=== PATIENT | female | born 1940 | race Caucasian/White ===

== ENCOUNTER 2017-01-07 15:10 | Inpatient (IN) | payer MEDICARE, MEDICAID ==
[~2017-01-07] VITALS: Ht 165.1 cm; Wt 79.4 kg
[~2017-01-07 15:10] MED LIST: ACET-868 PO; ASPI81TA2 PO; ATOR10TA PO; BLOO-697 IN; BUDE10.22 IH; CHOL100044 PO; CYAN500T4 PO; DEXT38GE12 PO; GLUC1KIT2 IM; INSU100I19 SQ; INSU100V3 SQ; IPRA3AMP IH; LORA0.5T PO; MAG30ORA PO; METO25TA6 PO; NIAC10002 PO; RISP0.253 PO; VALP250C PO
[2017-01-07 16:19] LABS: BASOPHILS % (AUTO) 0.5 % (0.0-2.0); EOSINOPHILS % (AUTO) 0.7 % (0.0-6.0); HEMATOCRIT 32 % (33-45); LYMPHOCYTES # (AUTO) 0.9 /CMM (0.8-4.8); LYMPHOCYTES % (AUTO) 14.5 % (20.0-44.0); MEAN CORPUSCULAR HEMOGLOBIN 33 PG (26.0-33.0); MEAN CORPUSCULAR HGB CONC 35 g/dl (31.0-36.0); MEAN CORPUSCULAR VOLUME 97 fL (82-100); MONOCYTES # (AUTO) 0.6 /CMM (0.1-1.30); MONOCYTES % (AUTO) 8.8 % (2.0-12.0); NEUTROPHILS # (AUTO) 4.9 /CMM (1.8-8.9); NEUTROPHILS % (AUTO) 75.5 % (43.0-81.0); PLATELET COUNT (AUTO) 224 /CMM (150-450); RDW COEFFICIENT OF VARIATION 12.8 (11.5-15.0); RED BLOOD CELL COUNT(AUTO) 3.28 MIL/uL (4.0-5.2); WHITE BLOOD COUNT (AUTO) 6.4 K/uL (4.3-11.0)
[2017-01-07] MEDS ORDERED: AMLO5TAB2 PO (16:24)
[2017-01-07] MEDS ORDERED: RISP0.5T20 PO (16:24)
[2017-01-07] MEDS ORDERED: CITA20TA11 PO (16:24)
[2017-01-07] MEDS ORDERED: PIOG30TA2 PO (16:24)
[2017-01-07] MEDS ORDERED: DOCU250C75 PO (16:24)
[2017-01-07] MEDS ORDERED: LOSA50TA21 PO (16:24)
[2017-01-07] MEDS ORDERED: PANT40TA4 PO (16:24)
[2017-01-07] MEDS ORDERED: SITA100T PO (16:24)
[2017-01-07] MEDS ORDERED: MULT-213 PO (16:24)
[2017-01-07] MEDS ORDERED: ASPI-991 PO (16:24)
[2017-01-07 16:28] LABS: CALCIUM, SERUM 9.4 mg/dL (8.5-10.1); CARBON DIOXIDE 29 mmol/L (21-32); CHLORIDE 104 mmol/L (98-107); CREATININE 0.7 mg/dL (0.6-1.3); GLUCOSE 228 mg/dL (74-106); POTASSIUM 4.5 mmol/L (3.5-5.1); SODIUM SERUM 138 mmol/L (136-145); UREA NITROGEN, BLOOD 19 mg/dL (7-18)
[2017-01-07 16:34] LABS: ALANINE AMINOTRANSFERASE 23 U/L (12-78); ALBUMIN 3.4 g/dL (3.4-5.0); ALCOHOL, BLOOD < 3 mg/dL (0-0); ALKALINE PHOSPHATASE 95 U/L (46-116); ASPARTATE AMINOTRANSFERASE 18 U/L (15-37); BILIRUBIN,DIRECT 0.2 mg/dL (0.0-0.2); BILIRUBIN,TOTAL 0.9 mg/dL (0.2-1.0); TOTAL PROTEIN, SERUM 6.7 g/dL (6.4-8.2)
[2017-01-07 16:41] LABS: APPEARANCE,URINE Clear (CLEAR); BILIRUBIN,URINE Negative (NEGATIVE); BLOOD, URINE Negative Ery/uL (NEGATIVE); COLOR,URINE Yellow (YELLOW); KETONES,URINE Negative (NEGATIVE); LEUKOCYTE ESTERASE ,URINE Negative (NEGATIVE); NITRITE, URINE Negative (NEGATIVE); PH,URINE 5.5 (5.0-8.0); PROTEIN,URINE Negative (NEGATIVE); UGLUCOSE 500 MG/DL mg/dL (NEGATIVE); UROBILINOGEN,URINE 0.2 EU/dL (0.2)
[2017-01-07] MEDS ORDERED: IV D5/0.45 NACL 1,000 ML IV PRN (18:41)
[2017-01-07] MEDS ORDERED: HALOPERIDOL LACTATE INJ 5 MG/ML VIAL IM ONE (19:00)
[2017-01-07] MEDS ORDERED: ZOLPIDEM TARTRATE 5 MG TABLET PO PRN (19:00)
[2017-01-07] MEDS ORDERED: ONDANSETRON HCL/PF 4 MG/2 ML VIAL IVP PRN (19:00)
[2017-01-07] MEDS ORDERED: MAG HYDROX/AL HYDROX/SIMETH 30 ML UDC PO PRN (19:00)
[2017-01-07] MEDS ORDERED: MAGNESIUM HYDROXIDE 30 ML UDC PO PRN (19:00)
[2017-01-07] MEDS ORDERED: *INSULIN REGULAR(HUMULIN R)HUM 100 UNIT/ML VIAL SQ PRN (19:00)
[2017-01-07] MEDS ORDERED: DEXTROSE 50%-WATER 50 ML DISP.SYRIN IV PRN (19:00)
[2017-01-07] MEDS ORDERED: ACETAMINOPHEN 325 MG TABLET PO PRN (19:00)
[2017-01-07] MEDS ORDERED: Z GUARD REMEDY 2 OZ OINT TP PRN (19:00)
[2017-01-07] MEDS ORDERED: HYDROCODONE/APAP 5/325MG 1 EACH TABLET PO PRN (19:00)
[2017-01-07 19:25] VITALS: BP 143/63
[2017-01-07] MEDS: BLOOD SUGAR DIAGNOSTIC 1 EACH STRIP VI SCH (21:58)
[2017-01-07] MEDS ORDERED: ATORVASTATIN 10 MG TABLET PO SCH (22:00)
[2017-01-08 06:28] LABS: BASOPHILS % (AUTO) 0.4 % (0.0-2.0); EOSINOPHILS # (AUTO) 0.1 /CMM (0.0-0.7); EOSINOPHILS % (AUTO) 1.3 % (0.0-6.0); HEMATOCRIT 33 % (33-45); HEMOGLOBIN 11.4 g/dL (11.5-14.8); LYMPHOCYTES # (AUTO) 1.4 /CMM (0.8-4.8); LYMPHOCYTES % (AUTO) 19.2 % (20.0-44.0); MEAN CORPUSCULAR HEMOGLOBIN 33 PG (26.0-33.0); MEAN CORPUSCULAR HGB CONC 34 g/dl (31.0-36.0); MEAN CORPUSCULAR VOLUME 97 fL (82-100); MONOCYTES # (AUTO) 0.7 /CMM (0.1-1.30); MONOCYTES % (AUTO) 9.3 % (2.0-12.0); NEUTROPHILS % (AUTO) 69.8 % (43.0-81.0); PLATELET COUNT (AUTO) 231 /CMM (150-450); RDW COEFFICIENT OF VARIATION 12.7 (11.5-15.0); RED BLOOD CELL COUNT(AUTO) 3.43 MIL/uL (4.0-5.2); WHITE BLOOD COUNT (AUTO) 7.2 K/uL (4.3-11.0)
[2017-01-08 06:44] LABS: CALCIUM, SERUM 9.2 mg/dL (8.5-10.1); CARBON DIOXIDE 29 mmol/L (21-32); CHLORIDE 107 mmol/L (98-107); CREATININE 0.6 mg/dL (0.6-1.3); GLUCOSE 191 mg/dL (74-106); MAGNESIUM 1.7 mg/dL (1.8-2.4); PHOSPHORUS 3.1 mg/dL (2.5-4.9); SODIUM SERUM 143 mmol/L (136-145); UREA NITROGEN, BLOOD 10 mg/dL (7-18)
[2017-01-08] MEDS: BLOOD SUGAR DIAGNOSTIC 1 EACH STRIP VI SCH ×2 (07:23→11:37)
[2017-01-08] MEDS: INSULIN REGULAR, HUMAN 100 UNIT/ML 3 ML VIAL SQ PRN ×2 (07:24→11:54)
[2017-01-08] MEDS: PANTOPRAZOLE 40 MG TABLET.DR PO SCH ×2 (07:30→09:33)
[2017-01-08 08:00] VITALS: BP 158/78
[2017-01-08] MEDS: ASPIRIN EC 81 MG TABLET.DR PO SCH ×2 (08:46→09:33)
[2017-01-08] MEDS: CITALOPRAM HYDROBROMIDE 20 MG TABLET PO SCH ×2 (08:46→09:33)
[2017-01-08] MEDS: AMLODIPINE BESYLATE 5 MG TABLET PO SCH ×2 (08:47→09:31)
[2017-01-08] MEDS: risperiDONE-M 0.5 MG TAB.RAPDIS PO SCH ×2 (08:47→09:32)
[2017-01-08] MEDS: LOSARTAN POTASSIUM 50 MG TABLET PO SCH ×2 (08:47→09:33)
[2017-01-08] MEDS: DOCUSATE SODIUM 250 MG CAPSULE PO SCH ×2 (08:47→09:33)
[2017-01-08] MEDS ORDERED: MULTIVITAMINS,THERAGRAN 1 UDTAB TABLET PO SCH (09:00)
[2017-01-08] MEDS ORDERED: Magnesium 1GM/D5W 100ML PREMIX 100 ML IV ONE (09:30)
[2017-01-08 09:33] VITALS: BP 158/78
[2017-01-08] MEDS ORDERED: DIVALPROEX SODIUM 125 MG CAP.SPRINK PO SCH (13:00)
[2017-01-08] MEDS ORDERED: risperiDONE-M 0.5 MG TAB.RAPDIS PO SCH (17:00)
[2017-01-08] MEDS ORDERED: ZOLP5TAB7 PO (18:28)
[2017-01-08] MEDS ORDERED: MAG30ORA PO (18:28)
[2017-01-08] MEDS ORDERED: INSU100V3 SQ ×2 (18:28→18:29)
[2017-01-08] MEDS ORDERED: ACET-868 PO (18:28)
[2017-01-08] MEDS ORDERED: DIVA250T PO (18:28)
[2017-01-08] MEDS ORDERED: BLOO-668 IN (18:28)
[2017-01-08] MEDS ORDERED: HYDR-552 PO (18:29)
== END 2017-01-08 15:00 | DRG 885 ==
LOC: ER 15:14 → MED 18:14
PROVIDERS: ADMIT Internal Medicine; ATTEND Internal Medicine
DX: F29 Unspecified psychosis not due to a substance or known physiological condition (principal); G93.40 Encephalopathy, unspecified; F25.0 Schizoaffective disorder, bipolar type; E11.9 Type 2 diabetes mellitus without complications; F03.90 Unspecified dementia, unspecified severity, without behavioral disturbance, psychotic disturbance, mood disturbance, and anxiety; E83.42 Hypomagnesemia; R47.01 Aphasia; E78.5 Hyperlipidemia, unspecified; R62.7 Adult failure to thrive; J44.9 Chronic obstructive pulmonary disease, unspecified; H91.90 Unspecified hearing loss, unspecified ear; F41.9 Anxiety disorder, unspecified; I10 Essential (primary) hypertension; Z79.899 Other long term (current) drug therapy; Z79.82 Long term (current) use of aspirin; Z79.4 Long term (current) use of insulin; Z88.2 Allergy status to sulfonamides; F32.9 Major depressive disorder, single episode, unspecified; Z79.51 Long term (current) use of inhaled steroids; Z73.6 Limitation of activities due to disability
CPT/HCPCS: 36415; 70450-TC; 80048-TC; 80076-TC; 80305; 81000-TC; 82962-TC; 83735-TC; 84100-TC; 85025-TC; 87081-TC; 92611-TC; A4606; G0480; J1815; J3475; J3490; Z7610

== ENCOUNTER 2017-01-08 15:51 | Inpatient (IN) | payer MEDICARE, MEDICAID ==
[~2017-01-08] VITALS: Ht 165.1 cm; Wt 79.4 kg
[~2017-01-08 15:51] MED LIST changes: -ACET-868 PO; +AMLO5TAB2 PO; +ASPI-991 PO; -ASPI81TA2 PO; -BLOO-697 IN; -BUDE10.22 IH; -CHOL100044 PO; +CITA20TA11 PO; -CYAN500T4 PO; -DEXT38GE12 PO; +DOCU250C75 PO; -GLUC1KIT2 IM; -INSU100I19 SQ; -INSU100V3 SQ; -IPRA3AMP IH; -LORA0.5T PO; +LOSA50TA21 PO; -MAG30ORA PO; -METO25TA6 PO; +MULT-213 PO; -NIAC10002 PO; +PANT40TA4 PO; +PIOG30TA2 PO; -RISP0.253 PO; +RISP0.5T20 PO; +SITA100T PO; -VALP250C PO
--- NOTE | 2017-01-08 16:00 | NUR ---
GPS/RN PATIENT ADMITTED ON A 5150 HOLD FOR GD, UNDER THE CARE OF DR CAMARGO AND DR VILLAFANA. PER HOLD PATIENT WAS REFUSING CARE, NOT EATING, NOT DRINKING, NON COMPLIANT, AND EXHIBITING AGGRESSIVE BEHAVIOR AT [facility]. UPON FACE TO FACE ASSESSMENT, PATIENT IS ALERT X 1, DEAF WITH GARBLED SPEECH, STABLE CONDITION, ANXIOUS, AGITATED, UNKEMPT, YELLING AND AGGRESSIVE BEHAVIOR TOWARDS STAFF. BOTH DR'S AWARE OF NEW ADMISSION, AWAITING INPUT OF MEDS IN SYSTEM BY MED RECON NURSE. VALUABLES TAKEN TO SAFE, BELONGINGS IN LOCKER, PATIENT REFUSED SKIN ASSESSMENT X 3 AND GETS INCREASINGLY MORE AGITATED UPON APPROACH, EXPLAINED RISKS AND BENEFITS BUT PATIENT ADAMANTLY REFUSED. WILL CONTINUE TO MONITOR Q 15 MON FOR SAFETY AND BEHAVIOR.
[2017-01-08] MEDS ORDERED: MAGNESIUM HYDROXIDE 30 ML UDC PO PRN (16:30)
[2017-01-08] MEDS ORDERED: MAG HYDROX/AL HYDROX/SIMETH 30 ML UDC PO PRN (16:30)
[2017-01-08] MEDS ORDERED: MAG30ORA PO (18:28)
[2017-01-08] MEDS ORDERED: ZOLP5TAB7 PO (18:28)
[2017-01-08] MEDS ORDERED: ACET-868 PO (18:28)
[2017-01-08] MEDS ORDERED: INSU100V3 SQ ×2 (18:28→18:29)
[2017-01-08] MEDS ORDERED: BLOO-668 IN (18:28)
[2017-01-08] MEDS ORDERED: DIVA250T PO (18:28)
[2017-01-08] MEDS ORDERED: HYDR-552 PO (18:29)
[2017-01-08 20:52] VITALS: BP 134/56
[2017-01-08] MEDS ORDERED: DEXTROSE 50%-WATER 50 ML DISP.SYRIN IV PRN (23:00)
[2017-01-08] MEDS: ASPIRIN EC 81 MG TABLET.DR PO SCH (23:00)
[2017-01-08] MEDS ORDERED: ACETAMINOPHEN 325 MG TABLET PO PRN (23:00)
[2017-01-08] MEDS: *INSULIN REGULAR(HUMULIN R)HUM 100 UNIT/ML VIAL SQ PRN (23:34)
[2017-01-08] MEDS: BLOOD SUGAR DIAGNOSTIC 1 EACH STRIP VI SCH (23:36)
[2017-01-09] MEDS: TEMAZEPAM 7.5 MG CAPSULE PO PRN ×2 (00:05→21:36)
[2017-01-09] MEDS: ACETAMINOPHEN 325 MG TABLET PO PRN (03:59)
[2017-01-09 06:44] LABS: CHOLESTEROL 122 mg/dL (<200); HDL CHOLESTEROL 62 mg/dL (40-60); LDL 46 mg/dL (0-99); TRIGLYCERIDES 91 mg/dL (30-150)
[2017-01-09 06:56] LABS: ALANINE AMINOTRANSFERASE 27 U/L (12-78); ALBUMIN 3.3 g/dL (3.4-5.0); ALKALINE PHOSPHATASE 103 U/L (46-116); ASPARTATE AMINOTRANSFERASE 23 U/L (15-37); BILIRUBIN,TOTAL 1.2 mg/dL (0.2-1.0); CALCIUM, SERUM 9.6 mg/dL (8.5-10.1); CARBON DIOXIDE 29 mmol/L (21-32); CHLORIDE 105 mmol/L (98-107); CREATININE 0.6 mg/dL (0.6-1.3); GLUCOSE 219 mg/dL (74-106); POTASSIUM 4.2 mmol/L (3.5-5.1); SODIUM SERUM 142 mmol/L (136-145); UREA NITROGEN, BLOOD 9 mg/dL (7-18)
[2017-01-09] MEDS: BLOOD SUGAR DIAGNOSTIC 1 EACH STRIP VI SCH ×4 (07:30→21:36)
[2017-01-09] MEDS ORDERED: BLOOD SUGAR DIAGNOSTIC 1 EACH STRIP IN SCH (07:30)
[2017-01-09 08:00] VITALS: BP 103/83
[2017-01-09] MEDS: PANTOPRAZOLE 40 MG TABLET.DR PO SCH (09:01)
[2017-01-09] MEDS: MULTIVIT, IRON, MIN NO. 8, FA 1 TAB PO SCH (09:01)
[2017-01-09] MEDS: DOCUSATE SODIUM 250 MG CAPSULE PO SCH (09:01)
[2017-01-09] MEDS: LORAZEPAM 0.5 MG TABLET PO PRN ×2 (09:02→22:36)
[2017-01-09] MEDS: AMLODIPINE BESYLATE 5 MG TABLET PO SCH ×2 (09:02→16:44)
[2017-01-09] MEDS: ASPIRIN EC 81 MG TABLET.DR PO SCH (09:02)
[2017-01-09] MEDS: LOSARTAN POTASSIUM 50 MG TABLET PO SCH (09:03)
--- NOTE | 2017-01-09 11:47 | NUR ---
RN NOTES ACCUCHECK. BS 223 MG/DL. ADMINISTERED 6 UNITS HUM R PER SLIDING SCALE.
[2017-01-09] MEDS: INSULIN REGULAR, HUMAN 100 UNIT/ML 3 ML VIAL SQ PRN ×2 (11:50→17:12)
[2017-01-09] MEDS: DIVALPROEX SODIUM 125 MG CAP.SPRINK PO SCH ×2 (13:00→17:02)
[2017-01-09 16:00] VITALS: BP 130/68
[2017-01-09] MEDS: risperiDONE-M 0.5 MG TAB.RAPDIS PO SCH (17:04)
--- NOTE | 2017-01-09 17:09 | NUR ---
RN NOTES ACCUCHECK. BS 172 MG/DL. ADMINISTERED 3 UNITS HUM R PER SLIDING SCALE.
[2017-01-09 20:46] VITALS: BP 125/58
[2017-01-09] MEDS: ATORVASTATIN 10 MG TABLET PO SCH (21:36)
[2017-01-09] MEDS: ZOLPIDEM TARTRATE 5 MG TABLET PO PRN (22:36)
[2017-01-09] MEDS: *INSULIN REGULAR(HUMULIN R)HUM 100 UNIT/ML VIAL SQ PRN (23:11)
[2017-01-09] MEDS: HYDROCODONE/APAP 5/325MG 1 EACH TABLET PO PRN (23:14)
[2017-01-10] MEDS: PANTOPRAZOLE 40 MG TABLET.DR PO SCH (07:30)
[2017-01-10] MEDS: BLOOD SUGAR DIAGNOSTIC 1 EACH STRIP VI SCH ×4 (08:24→21:41)
[2017-01-10] MEDS: DOCUSATE SODIUM 250 MG CAPSULE PO SCH (08:24)
[2017-01-10] MEDS: MULTIVIT, IRON, MIN NO. 8, FA 1 TAB PO SCH (08:25)
[2017-01-10] MEDS: LORAZEPAM 0.5 MG TABLET PO PRN (08:26)
[2017-01-10] MEDS: AMLODIPINE BESYLATE 5 MG TABLET PO SCH ×2 (08:27→17:00)
[2017-01-10] MEDS: LOSARTAN POTASSIUM 50 MG TABLET PO SCH (08:27)
[2017-01-10] MEDS: INSULIN REGULAR, HUMAN 100 UNIT/ML 3 ML VIAL SQ PRN ×2 (08:41→12:12)
[2017-01-10 09:10] VITALS: BP 132/65
[2017-01-10] MEDS: ASPIRIN EC 81 MG TABLET.DR PO SCH (09:27)
[2017-01-10] MEDS: DIVALPROEX SODIUM 125 MG CAP.SPRINK PO SCH ×3 (10:47→17:00)
[2017-01-10] MEDS: risperiDONE-M 0.5 MG TAB.RAPDIS PO SCH ×2 (11:45→17:00)
--- NOTE | 2017-01-10 15:34 | NUR ---
PT. IS HIGHLY AGITATED, ATTACKING OTHER PTS., SCREAMING, DESTRUCTIVE TO GROUP AND NOT FOLLOWING DIRECTION. Addendum: 01/10/17 at 1626 by FABRIZIO BREWER RN CALLED DR. CAMARGO AND ORDERED ZYPREXA 10 MG IM X1 AND ATIVAN 1 MG IM X1 AND CALLED ORA PEARCE AT [phone] AND LEFT A MESSAGE.
--- NOTE | 2017-01-10 15:35 | NUR ---
RN NOTES PATIENT DEAF USING SIGN LANGUAGE, VERY ANXIOUS, PARANOID, LOUD, NOT FOLLOWING DIRECTION, HITTING STAFF MEMBERS, AND PATIENTS. OFFERED CALM ENVIRONMENT, REFUSED TAKE MEDICATION, WALKING BACK, AND FORTH IN THE HALLWAY, CALLED DR CAMARGO, AND GET NEW ORDER ATIVAN 1 MG/ML IM X1, AND ZYPREXA 10 MG/ML IM X1, ORDER TAKEN, AND CARRIED OUT.
--- NOTE | 2017-01-10 15:48 | NUR ---
RN NOTES ADMINISTERED ATIVAN 1 MG/ML IM X1, AND ZYPREXA 10 MG/ML IM X1, RIGHT UPPER OUTER GLUTEAL AREA PER MD ORDER, V/S TAKEN BP-128/73, P-71, CALL MCCLAIN NEAR TO REACH, SAFETY PRECAUTION MAINTAINED ALL THE TIME.
[2017-01-10] MEDS ORDERED: OLANZAPINE 10 MG VIAL IM ONE (16:00)
[2017-01-10] MEDS ORDERED: LORAZEPAM INJ 2 MG/ML VIAL IM ONE (16:00)
--- NOTE | 2017-01-10 18:50 | NUR ---
RN NOTES PATIENT SLEEPING AT THIS TIME AFTER PRN IM INJECTION, UNABLE TO GIVE 1700 MEDICATION. BS-195 MG/DL NOT GIVEN COVERAGE BECAUSE REFUSED DINNER, PATIENT HAVE NO RESPIRATORY DISTRESS AT THIS TIME, CALL MCCLAIN NEAR TO REACH, BED ALARM ON, CONTINUED MONITORING. ENDORSED ONCOMING NURSE FOR CONTINUATION OF CARE.
[2017-01-10 20:00] VITALS: BP 150/76
[2017-01-10] MEDS: *INSULIN REGULAR(HUMULIN R)HUM 100 UNIT/ML VIAL SQ PRN (21:42)
[2017-01-10] MEDS: ATORVASTATIN 10 MG TABLET PO SCH (21:42)
--- NOTE | 2017-01-10 21:42 | NUR ---
GPS/PARKING LINE PAINTER NOTES: ACCUCHECK DONE. BS NOTED AT 167. PT. REFUSED INSULIN COVERAGE. PT. ALSO REFUSED HS ATORVASTATIN ORDERED. OFFERED 3X. EXPLAINED RISK AND BENEFITS. PT. STILL REFUSED.
[2017-01-11 07:33] LABS: BASOPHILS % (AUTO) 0.2 % (0.0-2.0); EOSINOPHILS # (AUTO) 0.1 /CMM (0.0-0.7); HEMATOCRIT 35 % (33-45); HEMOGLOBIN 11.6 g/dL (11.5-14.8); LYMPHOCYTES % (AUTO) 14.5 % (20.0-44.0); MEAN CORPUSCULAR HEMOGLOBIN 33 PG (26.0-33.0); MEAN CORPUSCULAR HGB CONC 33 g/dl (31.0-36.0); MEAN CORPUSCULAR VOLUME 99 fL (82-100); MONOCYTES # (AUTO) 0.7 /CMM (0.1-1.30); NEUTROPHILS # (AUTO) 5.5 /CMM (1.8-8.9); NEUTROPHILS % (AUTO) 75.3 % (43.0-81.0); PLATELET COUNT (AUTO) 266 /CMM (150-450); RDW COEFFICIENT OF VARIATION 13.5 (11.5-15.0); WHITE BLOOD COUNT (AUTO) 7.2 K/uL (4.3-11.0)
[2017-01-11 07:35] LABS: CALCIUM, SERUM 9.1 mg/dL (8.5-10.1); CARBON DIOXIDE 30 mmol/L (21-32); CHLORIDE 105 mmol/L (98-107); CREATININE 0.8 mg/dL (0.6-1.3); GLUCOSE 200 mg/dL (74-106); MAGNESIUM 1.8 mg/dL (1.8-2.4); POTASSIUM 3.7 mmol/L (3.5-5.1); SODIUM SERUM 143 mmol/L (136-145); UREA NITROGEN, BLOOD 16 mg/dL (7-18)
[2017-01-11] MEDS: DIVALPROEX SODIUM 125 MG CAP.SPRINK PO SCH ×3 (08:43→17:25)
[2017-01-11] MEDS: PANTOPRAZOLE 40 MG TABLET.DR PO SCH (08:44)
[2017-01-11] MEDS: AMLODIPINE BESYLATE 5 MG TABLET PO SCH ×2 (08:45→17:00)
[2017-01-11] MEDS: LOSARTAN POTASSIUM 50 MG TABLET PO SCH (08:45)
[2017-01-11] MEDS: MULTIVIT, IRON, MIN NO. 8, FA 1 TAB PO SCH (08:45)
[2017-01-11] MEDS: ASPIRIN EC 81 MG TABLET.DR PO SCH (08:45)
[2017-01-11] MEDS: DOCUSATE SODIUM 250 MG CAPSULE PO SCH (08:46)
[2017-01-11] MEDS: BLOOD SUGAR DIAGNOSTIC 1 EACH STRIP VI SCH ×4 (08:58→22:18)
[2017-01-11] MEDS: INSULIN REGULAR, HUMAN 100 UNIT/ML 3 ML VIAL SQ PRN ×2 (09:03→17:51)
[2017-01-11] MEDS: risperiDONE-M 0.5 MG TAB.RAPDIS PO SCH ×2 (11:03→17:25)
[2017-01-11] MEDS: LORAZEPAM 0.5 MG TABLET PO PRN ×2 (11:03→23:00)
[2017-01-11 16:17] VITALS: BP 105/76
--- NOTE | 2017-01-11 17:34 | NUR ---
Initial Discharge Plan: Pt resides at [facility], ; [address] [place] [address] and will return to facility when she is ready for discharge. RUBY attempted to speak to Moi Nick , pts brother to gather assessment information however was unable to reach him. RUBY LM with contact information. Ruby will follow up to ensure pt is safely and properly discharged.
[2017-01-11 20:00] VITALS: BP 126/71
[2017-01-11] MEDS: ATORVASTATIN 10 MG TABLET PO SCH (22:17)
[2017-01-11] MEDS: ZOLPIDEM TARTRATE 5 MG TABLET PO PRN (22:17)
[2017-01-11] MEDS: *INSULIN REGULAR(HUMULIN R)HUM 100 UNIT/ML VIAL SQ PRN (22:26)
--- NOTE | 2017-01-11 23:00 | NUR ---
GPS RN NOTES: PATIENT IS ALERT AND ORIENTED X1. PATIENT IS ANXIOUS. VITAL SIGNS ARE STABLE. ATIVAN 0.5MG GIVEN ORDERED, TOLERATED-WELL. WILL CONTINUE TO MONITOR [id number] FOR SAFETY AND BEHAVIOR.
[2017-01-12] MEDS: BLOOD SUGAR DIAGNOSTIC 1 EACH STRIP VI SCH ×4 (07:43→21:25)
[2017-01-12] MEDS: PANTOPRAZOLE 40 MG TABLET.DR PO SCH (08:24)
[2017-01-12 08:32] VITALS: BP 130/70
--- NOTE | 2017-01-12 09:00 | NUR ---
GPS/RN-NOTES NOTED PATIENT RIGHT 5TH TOE WITH PURPLE DISCOLORATION,SKIN IS INTACT. PATIENT UNABLE TO SAY WHAT HAPPEN DUE TO DEAF AND MUTE. NO FACIAL GRIMACES DURING ASSESSMENT. PATIENT ABLE TO WALK WITH NO SIGNS OF DISCOMFORT. PICTURE TAKEN. DR. VILLAFANA MADE AWARE WITH THE ORDER TO CONTINUE MONITORING FOR ANY ADVERSE CHANGES AND THAT HE WILL SEE THE PATIENT.
[2017-01-12] MEDS: MULTIVIT, IRON, MIN NO. 8, FA 1 TAB PO SCH (09:50)
[2017-01-12] MEDS: DIVALPROEX SODIUM 125 MG CAP.SPRINK PO SCH ×3 (09:50→17:20)
[2017-01-12] MEDS: DOCUSATE SODIUM 250 MG CAPSULE PO SCH (09:50)
[2017-01-12] MEDS: ASPIRIN EC 81 MG TABLET.DR PO SCH (09:50)
[2017-01-12] MEDS: risperiDONE-M 0.5 MG TAB.RAPDIS PO SCH ×2 (09:50→17:19)
[2017-01-12] MEDS: AMLODIPINE BESYLATE 5 MG TABLET PO SCH ×2 (09:51→17:20)
[2017-01-12] MEDS: LOSARTAN POTASSIUM 50 MG TABLET PO SCH (09:51)
[2017-01-12] MEDS: INSULIN REGULAR, HUMAN 100 UNIT/ML 3 ML VIAL SQ PRN ×3 (10:03→17:56)
--- NOTE | 2017-01-12 10:03 | NUR ---
GPS/RN-NOTES PATIENT BLOOD SUGAR WAS 137 MG/DL 2 UNITS OF R INSULIN GIVEN ORDERED.
--- NOTE | 2017-01-12 13:17 | NUR ---
GPS/RN-NOTES PATIENT BLOOD SUGAR WAS 139 MG/DL 2 UNITS OF R INSULIN GIVEN ORDERED.
[2017-01-12] MEDS: LORAZEPAM 0.5 MG TABLET PO PRN ×2 (14:03→23:45)
--- NOTE | 2017-01-12 14:05 | NUR ---
GPS/RN-NOTES NOTED PATIENT PACING IN AND OUT THE HALLWAY BANGING DOORS WITH EPISODE OF SCREAMING AND YELLING. OFFERED ATIVAN AND AND AGREED. ATIVAN 0.5 MG P.O GIVEN PRN ORDER. WILL CONT. MONITORING FOR SAFETY AND BEHAVIOR.
[2017-01-12 16:39] VITALS: BP 130/77
--- NOTE | 2017-01-12 17:51 | NUR ---
GPS/RN-NOTES PATIENT AWAKE,ALERT AMBULATING IN THE HALLWAY CALM AND COOPERATIVE AT THIS TIME,NO ACUTE DISTRESS NOTED. ENDORSED TO INCOMING NURSE FOR CONTINUITY OF CARE.
[2017-01-12 20:00] VITALS: BP 103/55
[2017-01-12] MEDS: ATORVASTATIN 10 MG TABLET PO SCH (21:24)
[2017-01-12] MEDS: *INSULIN REGULAR(HUMULIN R)HUM 100 UNIT/ML VIAL SQ PRN (21:26)
[2017-01-12] MEDS: ZOLPIDEM TARTRATE 5 MG TABLET PO PRN (22:22)
[2017-01-13 08:00] VITALS: BP 110/63
[2017-01-13] MEDS: BLOOD SUGAR DIAGNOSTIC 1 EACH STRIP VI SCH ×4 (08:14→21:15)
[2017-01-13] MEDS: DOCUSATE SODIUM 250 MG CAPSULE PO SCH (08:16)
[2017-01-13] MEDS: DIVALPROEX SODIUM 125 MG CAP.SPRINK PO SCH ×3 (08:16→17:10)
[2017-01-13] MEDS: ASPIRIN EC 81 MG TABLET.DR PO SCH (08:16)
[2017-01-13] MEDS: AMLODIPINE BESYLATE 5 MG TABLET PO SCH ×2 (08:17→17:00)
[2017-01-13] MEDS: LOSARTAN POTASSIUM 50 MG TABLET PO SCH (08:17)
[2017-01-13] MEDS: PANTOPRAZOLE 40 MG TABLET.DR PO SCH (08:18)
[2017-01-13] MEDS: risperiDONE-M 0.5 MG TAB.RAPDIS PO SCH ×2 (08:18→17:10)
[2017-01-13] MEDS: INSULIN REGULAR, HUMAN 100 UNIT/ML 3 ML VIAL SQ PRN ×2 (09:01→12:15)
--- NOTE | 2017-01-13 09:01 | NUR ---
[id number]: BLOOD SUGAR IS 159 MG/DL AND GAVE 2 UNITS OF REGULAR INSULIN.
[2017-01-13] MEDS: MULTIVIT, IRON, MIN NO. 8, FA 1 TAB PO SCH (09:05)
[2017-01-13] MEDS: LORAZEPAM 0.5 MG TABLET PO PRN (09:05)
--- NOTE | 2017-01-13 09:05 | NUR ---
[id number]-QLOUR: GAVE ATIVAN 0.5 MG PO DUE TO INCREASED ANXIETY UPON PT REQUEST AND WILL CONTINUE TO MONITOR FOR EFFECTIVENESS OF MEDICATION
--- NOTE | 2017-01-13 12:15 | NUR ---
[id number]: BLOOD SUGAR IS 174 MG/DL AND GAVE 3 UNITS OF REGULAR INSULIN
[2017-01-13 15:50] VITALS: BP 111/59
[2017-01-13 20:24] VITALS: BP 111/45
[2017-01-13] MEDS: ATORVASTATIN 10 MG TABLET PO SCH (21:07)
[2017-01-13] MEDS: ZOLPIDEM TARTRATE 5 MG TABLET PO PRN (21:08)
[2017-01-13] MEDS: *INSULIN REGULAR(HUMULIN R)HUM 100 UNIT/ML VIAL SQ PRN (21:20)
[2017-01-14] MEDS: HYDROCODONE/APAP 5/325MG 1 EACH TABLET PO PRN (04:50)
--- NOTE | 2017-01-14 05:12 | NUR ---
PT c/o insomnia at 2107. Ambien 5 mg/po 1 tab given as ordered. Effective. Post 1 hour asleep in bed easy to arouse. Will continue to monitor.
--- NOTE | 2017-01-14 06:01 | NUR ---
PT C/O PAIN TO LEFT SIDE OF ABDOMEN 08/20. NORCO 5-325 MG PO PRN GIVEN ORDERED. EFFECTIVE. POST 1 HOUR DE 02/20. WILL CONTINUE TO MONITOR.
[2017-01-14] MEDS: PANTOPRAZOLE 40 MG TABLET.DR PO SCH (08:18)
[2017-01-14] MEDS: DOCUSATE SODIUM 250 MG CAPSULE PO SCH ×2 (08:18→08:31)
[2017-01-14] MEDS: BLOOD SUGAR DIAGNOSTIC 1 EACH STRIP VI SCH ×4 (08:18→21:46)
[2017-01-14] MEDS: risperiDONE-M 0.5 MG TAB.RAPDIS PO SCH ×2 (08:18→16:48)
[2017-01-14] MEDS: MULTIVIT, IRON, MIN NO. 8, FA 1 TAB PO SCH (08:18)
[2017-01-14] MEDS: ASPIRIN EC 81 MG TABLET.DR PO SCH (08:18)
[2017-01-14] MEDS: DIVALPROEX SODIUM 125 MG CAP.SPRINK PO SCH ×4 (08:18→16:48)
[2017-01-14] MEDS: INSULIN REGULAR, HUMAN 100 UNIT/ML 3 ML VIAL SQ PRN ×2 (08:19→17:40)
[2017-01-14] MEDS: AMLODIPINE BESYLATE 5 MG TABLET PO SCH ×2 (08:19→16:48)
[2017-01-14] MEDS: LOSARTAN POTASSIUM 50 MG TABLET PO SCH (08:20)
[2017-01-14 08:24] VITALS: BP 107/55
--- NOTE | 2017-01-14 12:34 | NUR ---
SW contacted [facility], and spoke to Veronica Damon, Resource Conservation Manager to confirm pt had a bed upon discharge. RUBY was informed that pt could return to facility once pt is ready for discharge. SW will continue to follow up to ensure pt is properly discharged.
[2017-01-14 16:00] VITALS: BP 100/51
[2017-01-14 20:03] VITALS: BP 101/58
[2017-01-14] MEDS: ATORVASTATIN 10 MG TABLET PO SCH (21:45)
[2017-01-15] MEDS: TEMAZEPAM 7.5 MG CAPSULE PO PRN ×2 (00:29→23:21)
--- NOTE | 2017-01-15 07:31 | NUR ---
PATIENT COMPLAINED OF PAIN IN THE LEFT FLANK AREA. PICTURE TAKEN AND PLACED IN CHART AND REPORTED TO DAY SHIFT NURSE. PATIENT ADDED THAT SHE HAS A BRUISED PINKY TOE. SHE REPORTED THIS ONE TO THE DAY SHIFT REGISTRAR COLLEGE OR UNIVERSITY DURING CHANGE OF SHIFT. DAY SHIFT NURSE INFORMED.
[2017-01-15 08:24] VITALS: BP 128/76
[2017-01-15] MEDS: ASPIRIN EC 81 MG TABLET.DR PO SCH (08:28)
[2017-01-15] MEDS: AMLODIPINE BESYLATE 5 MG TABLET PO SCH ×2 (08:28→16:48)
[2017-01-15] MEDS: DIVALPROEX SODIUM 125 MG CAP.SPRINK PO SCH ×3 (08:28→16:48)
[2017-01-15] MEDS: MULTIVIT, IRON, MIN NO. 8, FA 1 TAB PO SCH (08:28)
[2017-01-15] MEDS: DOCUSATE SODIUM 250 MG CAPSULE PO SCH (08:28)
[2017-01-15] MEDS: risperiDONE-M 0.5 MG TAB.RAPDIS PO SCH ×4 (08:28→22:31)
[2017-01-15] MEDS: PANTOPRAZOLE 40 MG TABLET.DR PO SCH (08:29)
[2017-01-15] MEDS: LOSARTAN POTASSIUM 50 MG TABLET PO SCH (08:29)
[2017-01-15] MEDS: BLOOD SUGAR DIAGNOSTIC 1 EACH STRIP VI SCH ×4 (08:30→22:31)
[2017-01-15] MEDS: INSULIN REGULAR, HUMAN 100 UNIT/ML 3 ML VIAL SQ PRN (08:35)
--- NOTE | 2017-01-15 08:35 | NUR ---
[id number]: BLOOD SUGAR IS 194 MG/DL AND GAVE 3 UNITS OF REGULAR INSULIN
[2017-01-15] MEDS: LORAZEPAM 0.5 MG TABLET PO PRN (08:36)
--- NOTE | 2017-01-15 08:36 | NUR ---
IUF-[id number]: GAVE ATIVAN 0.5 MG PO DUE TO INCREASED ANXIETY UPON PT REQUEST AND WILL CONTINUE TO MONITOR FOR EFFECTIVENESS OF MEDICATION
--- NOTE | 2017-01-15 11:11 | NUR ---
[id number]: BLOOD SUGAR IS 127 MG/DL AND NO INSULIN REQUIRED AT THIS TIME
--- NOTE | 2017-01-15 13:15 | NUR ---
[id number]: NOTIFIED DR. BRO ABOUT BRUISE ON LEFT FLANK AREA AND RT 5TH TOE BRUISE. NO NEW ORDERS GIVEN AT THIS TIME
[2017-01-15 16:23] VITALS: BP 134/64
[2017-01-15 19:41] VITALS: BP 118/69
[2017-01-15] MEDS: ATORVASTATIN 10 MG TABLET PO SCH (22:30)
[2017-01-15] MEDS: *INSULIN REGULAR(HUMULIN R)HUM 100 UNIT/ML VIAL SQ PRN (22:37)
[2017-01-16] MEDS: ACETAMINOPHEN 325 MG TABLET PO PRN (03:46)
[2017-01-16] MEDS: PANTOPRAZOLE 40 MG TABLET.DR PO SCH (07:30)
[2017-01-16] MEDS: BLOOD SUGAR DIAGNOSTIC 1 EACH STRIP VI SCH ×4 (07:30→22:09)
[2017-01-16 08:31] VITALS: BP 112/53
[2017-01-16] MEDS: AMLODIPINE BESYLATE 5 MG TABLET PO SCH ×2 (09:00→17:21)
[2017-01-16] MEDS: LOSARTAN POTASSIUM 50 MG TABLET PO SCH (09:00)
[2017-01-16] MEDS: risperiDONE-M 0.5 MG TAB.RAPDIS PO SCH ×4 (09:12→22:05)
[2017-01-16] MEDS: ASPIRIN EC 81 MG TABLET.DR PO SCH (09:13)
[2017-01-16] MEDS: DIVALPROEX SODIUM 125 MG CAP.SPRINK PO SCH ×3 (09:13→17:21)
[2017-01-16] MEDS: MULTIVIT, IRON, MIN NO. 8, FA 1 TAB PO SCH (09:13)
[2017-01-16] MEDS: DOCUSATE SODIUM 250 MG CAPSULE PO SCH (09:14)
[2017-01-16] MEDS: *INSULIN REGULAR(HUMULIN R)HUM 100 UNIT/ML VIAL SQ PRN (09:19)
[2017-01-16 15:54] VITALS: BP 121/58
[2017-01-16] MEDS: INSULIN REGULAR, HUMAN 100 UNIT/ML 3 ML VIAL SQ PRN (17:56)
[2017-01-16 20:47] VITALS: BP 141/62
[2017-01-16] MEDS: TEMAZEPAM 7.5 MG CAPSULE PO PRN (22:04)
--- NOTE | 2017-01-16 22:04 | NUR ---
[id number]: GAVE RESTORIL 7.5 MG PO DUE TO INSOMNIA UPON PT REQUEST AND WILL CONTINUE TO MONITOR FOR EFFECTIVENESS OF MEDICATION
[2017-01-16] MEDS: ATORVASTATIN 10 MG TABLET PO SCH (22:08)
[2017-01-17] MEDS: BLOOD SUGAR DIAGNOSTIC 1 EACH STRIP VI SCH ×4 (08:19→21:47)
[2017-01-17] MEDS: PANTOPRAZOLE 40 MG TABLET.DR PO SCH (08:19)
[2017-01-17] MEDS: MULTIVIT, IRON, MIN NO. 8, FA 1 TAB PO SCH (08:23)
[2017-01-17] MEDS: risperiDONE-M 0.5 MG TAB.RAPDIS PO SCH ×4 (08:23→21:47)
[2017-01-17] MEDS: ASPIRIN EC 81 MG TABLET.DR PO SCH (08:23)
[2017-01-17] MEDS: DOCUSATE SODIUM 250 MG CAPSULE PO SCH (08:23)
[2017-01-17] MEDS: DIVALPROEX SODIUM 125 MG CAP.SPRINK PO SCH ×3 (08:25→16:48)
[2017-01-17] MEDS: LOSARTAN POTASSIUM 50 MG TABLET PO SCH (08:28)
[2017-01-17] MEDS: AMLODIPINE BESYLATE 5 MG TABLET PO SCH ×2 (08:28→16:48)
[2017-01-17] MEDS: INSULIN REGULAR, HUMAN 100 UNIT/ML 3 ML VIAL SQ PRN ×2 (08:58→17:31)
--- NOTE | 2017-01-17 08:59 | NUR ---
GPS/RN-NOTES PATIENT VERY ANXIOUS PACING IN THE HALLWAY,SCREAMING AND YELLING WITH THE STAFF. REDIRECTED AND OFFERED ATIVAN AND AGREES. ATIVAN 0.5 MG P.O GIVEN PRN ORDER. WILL CONT. MONITORING FOR SAFETY AND BEHAVIOR.
--- NOTE | 2017-01-17 08:59 | NUR ---
GPS/RN-NOTES PATIENT BLOOD SUGAR WAS 147MG/DL,2 UNITS OF R INSULIN GIVEN ORDERED.
[2017-01-17] MEDS: LORAZEPAM 0.5 MG TABLET PO PRN (09:22)
[2017-01-17 09:37] VITALS: BP 130/69
--- NOTE | 2017-01-17 09:50 | NUR ---
GPS/RN-NOTES PATIENT IN THE DAY ROOM PARTICIPATING IN THE ACTIVITY GROUP,CALM AND COOPERATIVE AT THIS TIME. WILL CONT. MONITORING Q15 MINS. FOR SAFETY AND BEHAVIOR.
--- NOTE | 2017-01-17 12:00 | NUR ---
RUBY spoke to Alisa from [facility], [address] [place], [place] [id number]; to inform the facility of pts discharge tomorrow, 01/18/2017. Per conversation with Alisa, she is in agreement with pts discharge.
--- NOTE | 2017-01-17 13:00 | NUR ---
GPS/RN-NOTES PATIENT REFUSED ACCU CHECK. DESPITE ENCOURAGEMENT. PATIENTS ANGRY,SCREAMS AND YELLS AT THE IT DESKTOP SUPPORT TECHNICIAN. OFFERED X3.
[2017-01-17 16:07] VITALS: BP 100/65
[2017-01-17] MEDS: ACETAMINOPHEN 325 MG TABLET PO PRN (16:07)
--- NOTE | 2017-01-17 16:12 | NUR ---
GPS/RN-NOTES PATIENT C/O HEADACHE. TYLENOL 650MG P.O GIVEN PRN ORDER. WILL CONT. MONITORING FOR SAFETY AND BEHAVIOR.
--- NOTE | 2017-01-17 17:38 | NUR ---
GPS/RN-NOTES PATIENT BLOOD SUGAR WAS 220MG/DL, 6 UNITS OF R INSULIN GIVEN ORDERED.
[2017-01-17 20:00] VITALS: BP 114/51
[2017-01-17] MEDS: ATORVASTATIN 10 MG TABLET PO SCH (21:47)
[2017-01-18] MEDS: PANTOPRAZOLE 40 MG TABLET.DR PO SCH (07:30)
[2017-01-18] MEDS: BLOOD SUGAR DIAGNOSTIC 1 EACH STRIP VI SCH ×2 (07:50→12:29)
[2017-01-18 08:00] VITALS: BP 109/69
[2017-01-18] MEDS: risperiDONE-M 0.5 MG TAB.RAPDIS PO SCH ×2 (08:29→12:36)
[2017-01-18] MEDS: DIVALPROEX SODIUM 125 MG CAP.SPRINK PO SCH ×2 (08:29→12:37)
[2017-01-18] MEDS: DOCUSATE SODIUM 250 MG CAPSULE PO SCH (08:30)
[2017-01-18] MEDS: LOSARTAN POTASSIUM 50 MG TABLET PO SCH (08:31)
[2017-01-18] MEDS: ASPIRIN EC 81 MG TABLET.DR PO SCH (08:31)
[2017-01-18] MEDS: MULTIVIT, IRON, MIN NO. 8, FA 1 TAB PO SCH (08:32)
[2017-01-18 08:42] VITALS: BP 109/69
[2017-01-18] MEDS: AMLODIPINE BESYLATE 5 MG TABLET PO SCH (08:42)
[2017-01-18] MEDS: INSULIN REGULAR, HUMAN 100 UNIT/ML 3 ML VIAL SQ PRN ×2 (08:57→12:51)
--- NOTE | 2017-01-18 08:58 | NUR ---
GPS/RN-NOTES PATIENT BLOOD SUGAR WAS 180 MG/DL,3 UNITS OF R INSULIN GIVEN ORDERED.
--- NOTE | 2017-01-18 09:19 | NUR ---
SW spoke to Ena, Auto Hauler at [facility] to confirm pts discharge on this date, which was agreed upon. SW also obtained pts security system administrator and psychiatrist contact information. Ecological Risk Assessor:Wilma Howard, [address] [place] [address]; and Psychiatrist: Sharon Darby, [address] [place] [phone]; . Sw will follow up to ensure pt is properly discharged.
--- NOTE | 2017-01-18 11:26 | NUR ---
Discharge Note: Patient will be discharged to [facility], [address] [place], [place] [id number] via [employer] [facility] at 1pm. Facility has been made aware of pts discharge plans and is in agreement. Pt is also in agreement with her discharge. Pt will follow up with Materials Supervisor, Wilma Howard, [address] [place] [address]; and Psychiatrist, Sharon Darby, [address] [place] [phone]; from the facility. SW will follow up to ensure pt is properly and safely discharged.
--- NOTE | 2017-01-18 12:49 | NUR ---
RUBY set up an appointment for patient to meet with her restaurant shift supervisor, Dr. Wilma Howard, [address] [place] [address]; , on Saturday, January 22 at 11:30am.
--- NOTE | 2017-01-18 13:30 | NUR ---
GPS/RN-NOTES PATIENT DISCHARGE TO [facility].DR. CAMARGO AND DR. DIEUDONNE SCHNEIDER AWARE AND AGREES OF PATIENT DISCHARGE WITH ORDERS. PATIENT HAS NON VERBAL CUES OF SI/HI,NO VISUAL/AUDITORY HALLUCINATIONS AT THE TIME OF DISCHARGE. PATIENT BROTHER ORA PEARCE ([phone]) MADE AWARE OF THE DISCHARGE..PATIENT LEFT THE UNIT IN STABLE CONDITION,AMBULATORY WITH ALL HER BELONGINGS. APPLICATIONS ARCHITECT BY JAYLEEN ( [facility] STAFF TRANSPORTATION) .
[2017-01-20] MEDS ORDERED: PIOG30TA2 PO (14:43)
== END 2017-01-18 13:30 | DRG 885 ==
LOC: GPS 15:51
PROVIDERS: ADMIT Psychiatry & Neurology Psychiatry; ATTEND Psychiatry & Neurology Psychiatry
DX: F25.0 Schizoaffective disorder, bipolar type (principal); G93.40 Encephalopathy, unspecified; E11.65 Type 2 diabetes mellitus with hyperglycemia; E83.42 Hypomagnesemia; J44.9 Chronic obstructive pulmonary disease, unspecified; E78.5 Hyperlipidemia, unspecified; Z73.6 Limitation of activities due to disability; F41.9 Anxiety disorder, unspecified; H91.90 Unspecified hearing loss, unspecified ear; I10 Essential (primary) hypertension; E87.6 Hypokalemia; Z79.899 Other long term (current) drug therapy
CPT/HCPCS: 36415; 80048-TC; 80053-TC; 80061-TC; 82962-TC; 83735-TC; 85025-TC; 92507-TC; 92521; J1815; J2060; J3490

== ENCOUNTER 2017-01-20 12:37 | Inpatient (IN) | payer MEDICARE, MEDICAID ==
[~2017-01-20] VITALS: Ht 162.6 cm; Wt 68.0 kg
[~2017-01-20 12:37] MED LIST changes: +ACET-868 PO; +ASPI-1152 PO; -ASPI-991 PO; +BLOO-668 IN; -CITA20TA11 PO; +DIVA250T PO; +DOCU250C14 PO; -DOCU250C75 PO; +HYDR-552 PO; +INSU100V3 SQ; +MAG30ORA PO; -PIOG30TA2 PO; -RISP0.5T20 PO; -SITA100T PO; +ZOLP5TAB8 PO
[2017-01-20] MEDS ORDERED: OLANZAPINE 10 MG VIAL IM ONE ×2 (12:53→13:00)
[2017-01-20 14:06] LABS: BASOPHILS # (AUTO) 0.2 /CMM (0.0-0.2); BASOPHILS % (AUTO) 2.2 % (0.0-2.0); EOSINOPHILS # (AUTO) 0.1 /CMM (0.0-0.7); EOSINOPHILS % (AUTO) 0.5 % (0.0-6.0); HEMATOCRIT 35 % (33-45); HEMOGLOBIN 11.3 g/dL (11.5-14.8); LYMPHOCYTES # (AUTO) 1.9 /CMM (0.8-4.8); LYMPHOCYTES % (AUTO) 17.4 % (20.0-44.0); MEAN CORPUSCULAR HEMOGLOBIN 32 PG (26.0-33.0); MEAN CORPUSCULAR HGB CONC 33 g/dl (31.0-36.0); MEAN CORPUSCULAR VOLUME 97 fL (82-100); MONOCYTES # (AUTO) 1.1 /CMM (0.1-1.30); MONOCYTES % (AUTO) 9.7 % (2.0-12.0); NEUTROPHILS # (AUTO) 7.5 /CMM (1.8-8.9); NEUTROPHILS % (AUTO) 70.2 % (43.0-81.0); PLATELET COUNT (AUTO) 224 /CMM (150-450); RDW COEFFICIENT OF VARIATION 13.5 (11.5-15.0); RED BLOOD CELL COUNT(AUTO) 3.54 MIL/uL (4.0-5.2); WHITE BLOOD COUNT (AUTO) 10.8 K/uL (4.3-11.0)
[2017-01-20 14:16] LABS: CALCIUM, SERUM 9.6 mg/dL (8.5-10.1); CARBON DIOXIDE 31 mmol/L (21-32); CHLORIDE 105 mmol/L (98-107); GLUCOSE 177 mg/dL (74-106); POTASSIUM 4.7 mmol/L (3.5-5.1); SODIUM SERUM 145 mmol/L (136-145); UREA NITROGEN, BLOOD 27 mg/dL (7-18)
[2017-01-20 14:31] LABS: ACETAMINOPHEN 1 ug/ml (10-30); ALANINE AMINOTRANSFERASE 24 U/L (12-78); ALBUMIN 3.6 g/dL (3.4-5.0); ALCOHOL, BLOOD < 3 mg/dL (0-0); ALKALINE PHOSPHATASE 101 U/L (46-116); ASPARTATE AMINOTRANSFERASE 21 U/L (15-37); BILIRUBIN,DIRECT 0.2 mg/dL (0.0-0.2); BILIRUBIN,TOTAL 0.8 mg/dL (0.2-1.0); TOTAL PROTEIN, SERUM 6.9 g/dL (6.4-8.2)
[2017-01-20 14:32] LABS: SALICYLATE < 2.8 mg/dL (2.8-20.0)
--- NOTE | 2017-01-20 14:41 | NUR ---
BB PRIVATE EMS FROM [facility] FOR INCREASING AGITATION, NAD NOTED, VSS, RESP EVEN AND UNLABORED, PT PUT ON MONITOR, WAITING FOR MD BOWSER.
[2017-01-20] MEDS ORDERED: PIOG30TA10 PO (14:43)
[2017-01-20] MEDS ORDERED: POLY17PO4 PO (14:43)
[2017-01-20] MEDS ORDERED: RISP1TAB27 PO (14:43)
[2017-01-20] MEDS ORDERED: CITA20TA11 PO (14:43)
[2017-01-20 14:57] LABS: APPEARANCE,URINE Clear (CLEAR); BILIRUBIN,URINE Negative (NEGATIVE); BLOOD, URINE Negative Ery/uL (NEGATIVE); COLOR,URINE Yellow (YELLOW); KETONES,URINE Negative (NEGATIVE); LEUKOCYTE ESTERASE ,URINE Small (NEGATIVE); NITRITE, URINE Positive (NEGATIVE); PROTEIN,URINE Negative (NEGATIVE); UGLUCOSE Negative (NEGATIVE); UROBILINOGEN,URINE 0.2 EU/dL (0.2)
[2017-01-20 15:10] LABS: BACTERIA,URINE Many /HPF (None Seen); RBC,URINE 0-2 /HPF (0-2); SQUAMOUS EPITHELIAL CELL,UR Few /HPF (None Seen); WBC,URINE 0-2 /HPF (0-3)
[2017-01-20] MEDS ORDERED: LORAZEPAM INJ 2 MG/ML VIAL ONE (15:55)
[2017-01-20] MEDS ORDERED: LORAZEPAM INJ 2 MG/ML VIAL IM ONE (16:00)
--- NOTE | 2017-01-20 17:45 | NUR ---
SHAD, CRISIS NURSE AT
--- NOTE | 2017-01-20 18:16 | NUR ---
Patient is resting comfortably in bed with eyes closed. Easily aroused. VSS
--- NOTE | 2017-01-20 20:08 | NUR ---
KATERINA BED 216V
--- NOTE | 2017-01-20 20:14 | NUR ---
ADMITTED BY PSYCH: DR. MARK MEDICAL: DR. JOSE
--- NOTE | 2017-01-20 20:30 | NUR ---
REPORT GIVEN TO KAREN.
[2017-01-20 21:00] VITALS: BP 141/57
--- NOTE | 2017-01-20 21:00 | NUR ---
GPS ADMISSION NOTES: ADMITTED A 76-Y/O FEMALE FROM [facility]. ON 5150 HOLD DTO AND GD. PER HOLD, PATIENT IS AGITATED AND OUT OF CONTROL. PATIENT ADMITTING DIAGNOSIS OF PYCHOSIS NOS AND MEDICAL DIAGNOSIS OF DIABETES MELLITUS, HYPERTENSION, AND HYPERLIPIDEMIA. PATIENT EVALUATED AT [facility] ER AND ARRIVED IN THE UNIT VIA GURNEY. PATIENT ASLEEP AT THIS TIME, AROUSABLE TO VERBAL AND TACTILE STIMULI. BREATHING EVEN AND UNLABORED. NO SOB NOTED, NO S/SX OF ACUTE RESPIRATORY DISTRESS NOTED. SKIN IS WARM AND DRY TO TOUCH. NO MANIFESTATION OF PAIN OR DISCOMFORT NOTED. CONTRABAND AND BELONGINGS INSPECTED AND COLLECTED. NOTIFIED DR. CHARITY JOSE TO RECONCILE MEDICATIONS AND DR. MARK REGARDING ADMISSION. WILL CONTINUE TO MONITOR [id number] FOR SAFETY AND BEHAVIOR.
[2017-01-20 21:18] VITALS: BP 141/57
[2017-01-20] MEDS ORDERED: MAG HYDROX/AL HYDROX/SIMETH 30 ML UDC PO PRN (21:30)
[2017-01-20] MEDS ORDERED: ACETAMINOPHEN 325 MG TABLET PO PRN (21:30)
[2017-01-20] MEDS ORDERED: MAGNESIUM HYDROXIDE 30 ML UDC PO PRN (21:30)
[2017-01-20] MEDS: *INSULIN REGULAR(HUMULIN R)HUM 100 UNIT/ML VIAL SQ PRN (21:50)
[2017-01-20] MEDS: BLOOD SUGAR DIAGNOSTIC 1 EACH STRIP VI SCH (21:51)
[2017-01-20] MEDS ORDERED: DEXTROSE 50%-WATER 50 ML DISP.SYRIN IV PRN (22:00)
[2017-01-21] MEDS: BLOOD SUGAR DIAGNOSTIC 1 EACH STRIP VI SCH ×4 (07:30→21:54)
[2017-01-21 08:08] VITALS: BP 122/50
[2017-01-21] MEDS: AMLODIPINE BESYLATE 5 MG TABLET PO SCH ×2 (10:30→17:00)
[2017-01-21] MEDS ORDERED: INSULIN REGULAR, HUMAN 100 UNIT/ML 3 ML VIAL SQ SCH (10:30)
[2017-01-21] MEDS ORDERED: ZOLPIDEM TARTRATE 5 MG TABLET PO PRN (10:30)
[2017-01-21] MEDS ORDERED: INSULIN REGULAR, HUMAN 100 UNIT/ML 3 ML VIAL SQ PRN (10:30)
[2017-01-21] MEDS: DOCUSATE SODIUM 250 MG CAPSULE PO SCH (10:32)
[2017-01-21] MEDS: LOSARTAN POTASSIUM 50 MG TABLET PO SCH (10:33)
[2017-01-21] MEDS: POLYETHYLENE GLYCOL 3350 17 GM POWD.PACK PO SCH ×2 (10:34→17:00)
[2017-01-21] MEDS: PANTOPRAZOLE 40 MG TABLET.DR PO SCH (11:06)
[2017-01-21] MEDS: PIOGLITAZONE HCL 15 MG TABLET PO SCH (11:06)
[2017-01-21] MEDS: ASPIRIN EC 81 MG TABLET.DR PO SCH (11:06)
[2017-01-21] MEDS: MULTIVITAMINS,THERAGRAN 1 UDTAB TABLET PO SCH (11:06)
[2017-01-21] MEDS ORDERED: BLOOD SUGAR DIAGNOSTIC 1 EACH STRIP IN SCH (12:00)
[2017-01-21 16:08] VITALS: BP 118/73
[2017-01-21] MEDS ORDERED: risperiDONE 1 MG TABLET PO SCH (17:00)
[2017-01-21] MEDS ORDERED: CITALOPRAM HYDROBROMIDE 20 MG TABLET PO SCH (17:00)
[2017-01-21] MEDS: DIVALPROEX SODIUM 250 MG TABLET.DR PO SCH (17:19)
[2017-01-21] MEDS: risperiDONE 1 MG TABLET PO SCH ×2 (17:19→21:54)
[2017-01-21] MEDS: CEPHALEXIN MONOHYDRATE 250 MG CAPSULE PO SCH (18:25)
[2017-01-21 20:58] VITALS: BP 146/90
[2017-01-21] MEDS: ATORVASTATIN 10 MG TABLET PO SCH (21:53)
[2017-01-21] MEDS: TEMAZEPAM 7.5 MG CAPSULE PO PRN (22:01)
[2017-01-21] MEDS: *INSULIN REGULAR(HUMULIN R)HUM 100 UNIT/ML VIAL SQ PRN (22:08)
[2017-01-22] MEDS: LORAZEPAM 0.5 MG TABLET PO PRN (03:39)
[2017-01-22] MEDS: CEPHALEXIN MONOHYDRATE 250 MG CAPSULE PO SCH ×4 (06:42→18:41)
[2017-01-22 08:00] VITALS: BP 127/66
[2017-01-22] MEDS: BLOOD SUGAR DIAGNOSTIC 1 EACH STRIP VI SCH ×4 (08:16→21:57)
[2017-01-22] MEDS: ASPIRIN EC 81 MG TABLET.DR PO SCH (08:46)
[2017-01-22] MEDS: DIVALPROEX SODIUM 250 MG TABLET.DR PO SCH ×3 (08:46→16:55)
[2017-01-22] MEDS: PANTOPRAZOLE 40 MG TABLET.DR PO SCH (08:47)
[2017-01-22] MEDS: AMLODIPINE BESYLATE 5 MG TABLET PO SCH ×2 (08:47→16:55)
[2017-01-22] MEDS: risperiDONE 1 MG TABLET PO SCH ×4 (08:47→21:48)
[2017-01-22] MEDS: DOCUSATE SODIUM 250 MG CAPSULE PO SCH (08:47)
[2017-01-22] MEDS: PIOGLITAZONE HCL 15 MG TABLET PO SCH (08:47)
[2017-01-22] MEDS: MULTIVITAMINS,THERAGRAN 1 UDTAB TABLET PO SCH (08:47)
[2017-01-22] MEDS: LOSARTAN POTASSIUM 50 MG TABLET PO SCH (08:48)
[2017-01-22] MEDS: POLYETHYLENE GLYCOL 3350 17 GM POWD.PACK PO SCH ×2 (08:48→16:55)
[2017-01-22 12:05] LABS: ALANINE AMINOTRANSFERASE 29 U/L (12-78); ALBUMIN 3.6 g/dL (3.4-5.0); ALKALINE PHOSPHATASE 115 U/L (46-116); ASPARTATE AMINOTRANSFERASE 21 U/L (15-37); BILIRUBIN,TOTAL 0.9 mg/dL (0.2-1.0); CALCIUM, SERUM 9.6 mg/dL (8.5-10.1); CARBON DIOXIDE 30 mmol/L (21-32); CHLORIDE 106 mmol/L (98-107); GLUCOSE 216 mg/dL (74-106); IRON, SERUM 64 ug/dl (50-175); SODIUM SERUM 145 mmol/L (136-145); TOTAL IRON BINDING CAPACITY 238 ug/dl (250-450); TOTAL PROTEIN, SERUM 7.6 g/dL (6.4-8.2); UREA NITROGEN, BLOOD 22 mg/dL (7-18)
[2017-01-22 12:07] LABS: CHOLESTEROL 145 mg/dL (<200); HDL CHOLESTEROL 67 mg/dL (40-60); LDL 64 mg/dL (0-99); TRIGLYCERIDES 116 mg/dL (30-150)
[2017-01-22 12:11] LABS: BASOPHILS % (AUTO) 0.3 % (0.0-2.0); EOSINOPHILS # (AUTO) 0.1 /CMM (0.0-0.7); EOSINOPHILS % (AUTO) 0.8 % (0.0-6.0); HEMATOCRIT 37 % (33-45); HEMOGLOBIN 12.2 g/dL (11.5-14.8); LYMPHOCYTES # (AUTO) 1.5 /CMM (0.8-4.8); MEAN CORPUSCULAR HEMOGLOBIN 33 PG (26.0-33.0); MEAN CORPUSCULAR HGB CONC 33 g/dl (31.0-36.0); MEAN CORPUSCULAR VOLUME 99 fL (82-100); MONOCYTES # (AUTO) 0.9 /CMM (0.1-1.30); NEUTROPHILS # (AUTO) 6.3 /CMM (1.8-8.9); NEUTROPHILS % (AUTO) 71.9 % (43.0-81.0); PLATELET COUNT (AUTO) 235 /CMM (150-450); RED BLOOD CELL COUNT(AUTO) 3.74 MIL/uL (4.0-5.2); WHITE BLOOD COUNT (AUTO) 8.8 K/uL (4.3-11.0)
[2017-01-22] MEDS: INSULIN REGULAR, HUMAN 100 UNIT/ML 3 ML VIAL SQ PRN (12:31)
--- NOTE | 2017-01-22 12:35 | NUR ---
GPS/RN-NOTES PATIENT BLOOD SUGAR WAS 211 MG/DL 6 UNITS OF R INSULIN GIVEN ORDERED.
[2017-01-22] MEDS: LITHIUM CARBONATE (300 MG CAP) 300 MG CAPSULE PO SCH ×2 (13:07→21:48)
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
[2017-01-22 16:00] VITALS: BP 113/49
[2017-01-22] MEDS: METFORMIN 500 MG TABLET PO SCH (20:14)
[2017-01-22 20:18] VITALS: BP 99/49
[2017-01-22] MEDS: NITROFURANTOIN/NITROFURAN MAC 100 MG CAPSULE PO SCH (21:48)
[2017-01-22] MEDS: ATORVASTATIN 10 MG TABLET PO SCH (21:48)
[2017-01-22] MEDS: *INSULIN REGULAR(HUMULIN R)HUM 100 UNIT/ML VIAL SQ PRN (21:59)
[2017-01-23] MEDS: LORAZEPAM 0.5 MG TABLET PO PRN ×2 (02:37→21:59)
[2017-01-23 08:00] VITALS: BP 124/57
[2017-01-23] MEDS: METFORMIN 500 MG TABLET PO SCH ×2 (09:08→16:16)
[2017-01-23] MEDS: LITHIUM CARBONATE (300 MG CAP) 300 MG CAPSULE PO SCH ×2 (09:08→22:00)
[2017-01-23] MEDS: DIVALPROEX SODIUM 250 MG TABLET.DR PO SCH ×3 (09:08→16:16)
[2017-01-23] MEDS: ASPIRIN EC 81 MG TABLET.DR PO SCH (09:08)
[2017-01-23] MEDS: MULTIVITAMINS,THERAGRAN 1 UDTAB TABLET PO SCH (09:08)
[2017-01-23] MEDS: PIOGLITAZONE HCL 15 MG TABLET PO SCH (09:08)
[2017-01-23] MEDS: DOCUSATE SODIUM 250 MG CAPSULE PO SCH (09:08)
[2017-01-23] MEDS: PANTOPRAZOLE 40 MG TABLET.DR PO SCH (09:08)
[2017-01-23] MEDS: risperiDONE 1 MG TABLET PO SCH ×2 (09:08→12:24)
[2017-01-23] MEDS: LOSARTAN POTASSIUM 50 MG TABLET PO SCH (09:08)
[2017-01-23] MEDS: AMLODIPINE BESYLATE 5 MG TABLET PO SCH ×2 (09:09→16:17)
[2017-01-23] MEDS: POLYETHYLENE GLYCOL 3350 17 GM POWD.PACK PO SCH ×2 (09:09→16:16)
[2017-01-23] MEDS: NITROFURANTOIN/NITROFURAN MAC 100 MG CAPSULE PO SCH ×2 (09:11→22:00)
[2017-01-23] MEDS: BLOOD SUGAR DIAGNOSTIC 1 EACH STRIP VI SCH ×4 (09:13→22:00)
[2017-01-23] MEDS: INSULIN REGULAR, HUMAN 100 UNIT/ML 3 ML VIAL SQ PRN ×2 (09:55→18:16)
--- NOTE | 2017-01-23 09:56 | NUR ---
GPS/RN-NOTES PATIENT BLOOD SUGAR WAS 145 MG/DL 2 UNITS OF R INSULIN GIVEN ORDERED.
--- NOTE | 2017-01-23 13:14 | NUR ---
Assessment Note: SW attests to the accuracy of the psychosocial assessment conducted for same patient on January 11, 2017. There have been no changes to patient's information. When RUBY met with pt, pt was standing up and alert. Pt acknowledged herself when SW called her by her name (i.e. pt pointed at self). Pts language is unintelligible (pt in non verbal, pt babbles). Pt expressed concerns about another pt by mimicking/gesturing other pts negative behavior. Pt appeared disappointed in other pt. Pt nodded her head in disagreement. Pt however appeared to be in a fair mood. SW assessed for S/I and H/I; which clt denied (by shaking her head). RUBY will work with pt and her family to find a higher level of care upon discharge; which brother is in agreement. Per, Emely BELTRAN pt can be discharged to [facility] once she is ready. RUBY contacted pts brother, Moi Nick and who is in agreement with placing pt in a higher level of care (i.e SNIFF) due to current needs. RUBY will continue to follow up and ensure pt is properly and safely discharged.
[2017-01-23 16:00] VITALS: BP 109/52
[2017-01-23] MEDS: HALOPERIDOL 5 MG TABLET PO SCH ×2 (16:21→22:00)
[2017-01-23] MEDS ORDERED: HALOPERIDOL 5 MG TABLET PO SCH (17:00)
--- NOTE | 2017-01-23 18:23 | NUR ---
GPS/RN-NOTES PATIENT BLOOD SUGAR WAS 175 MG/DL 3 UNITS OF R INSULIN GIVEN ORDERED.
[2017-01-23 20:13] VITALS: BP 105/55
[2017-01-23] MEDS: ATORVASTATIN 10 MG TABLET PO SCH (22:00)
[2017-01-23] MEDS: TEMAZEPAM 7.5 MG CAPSULE PO PRN (22:00)
[2017-01-24] MEDS: BLOOD SUGAR DIAGNOSTIC 1 EACH STRIP VI SCH ×4 (07:39→22:16)
[2017-01-24] MEDS: PANTOPRAZOLE 40 MG TABLET.DR PO SCH (07:39)
[2017-01-24] MEDS: MULTIVITAMINS,THERAGRAN 1 UDTAB TABLET PO SCH (08:06)
[2017-01-24] MEDS: AMLODIPINE BESYLATE 5 MG TABLET PO SCH ×2 (08:06→17:00)
[2017-01-24] MEDS: DIVALPROEX SODIUM 250 MG TABLET.DR PO SCH ×3 (08:06→17:16)
[2017-01-24] MEDS: POLYETHYLENE GLYCOL 3350 17 GM POWD.PACK PO SCH ×2 (08:06→17:16)
[2017-01-24] MEDS: METFORMIN 500 MG TABLET PO SCH ×2 (08:06→17:16)
[2017-01-24] MEDS: PIOGLITAZONE HCL 15 MG TABLET PO SCH (08:06)
[2017-01-24] MEDS: DOCUSATE SODIUM 250 MG CAPSULE PO SCH (08:06)
[2017-01-24] MEDS: LITHIUM CARBONATE (300 MG CAP) 300 MG CAPSULE PO SCH ×2 (08:07→22:16)
[2017-01-24] MEDS: NITROFURANTOIN/NITROFURAN MAC 100 MG CAPSULE PO SCH ×2 (08:07→22:17)
[2017-01-24] MEDS: LOSARTAN POTASSIUM 50 MG TABLET PO SCH (08:07)
[2017-01-24] MEDS: HALOPERIDOL 5 MG TABLET PO SCH ×4 (08:07→17:16)
[2017-01-24] MEDS: ASPIRIN EC 81 MG TABLET.DR PO SCH (08:07)
[2017-01-24] MEDS ORDERED: AZITHROMYCIN 250 MG TABLET PO SCH (08:30)
[2017-01-24 08:41] VITALS: BP 125/61
[2017-01-24] MEDS: INSULIN REGULAR, HUMAN 100 UNIT/ML 3 ML VIAL SQ PRN ×3 (09:11→17:17)
[2017-01-24] MEDS: CEPHALEXIN MONOHYDRATE 500 MG CAPSULE PO SCH ×2 (09:48→22:17)
[2017-01-24] MEDS: P-EPHED SUL/LORATADINE (24H) 1 TAB.SR.24H PO SCH (09:48)
[2017-01-24] MEDS: FLUTICASONE PROPIONATE 16 GM BOTTLE NS SCH ×2 (09:49→17:16)
--- NOTE | 2017-01-24 11:57 | NUR ---
Discharge Planning: RUBY followed up with Jeffery, to discuss pts transfer to [facility] upon discharge (i.e. pt needs higher level of care). Per discussion with Jeffery he will follow up with Nicki Thakkar from Admissions to confirm the facility will accept pt. upon discharge. RUBY will follow up to secure placement for pt.
[2017-01-24] MEDS: LORAZEPAM 0.5 MG TABLET PO PRN (12:01)
--- NOTE | 2017-01-24 13:40 | NUR ---
ATTEMPTED TO GIVE PT NEW HALDOL ORDER. PATIENT REFUSED. WROTE ON PAPER TO COMMUNICATE "I TOOK THAT ALREADY. NOT AGAIN UNTIL LATER." EXPLAINED TO THE PATIENT THAT THE DOCTOR CHANGED THE DOSE AND THIS IS A NEW ORDER, BUT PATIENT STILL REFUSING; UNDERLINES THE WORD "LATER".
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
[2017-01-24 15:32] VITALS: BP 100/55
[2017-01-24 20:00] VITALS: BP 101/53
[2017-01-24] MEDS: *INSULIN REGULAR(HUMULIN R)HUM 100 UNIT/ML VIAL SQ PRN (22:16)
[2017-01-24] MEDS: TEMAZEPAM 7.5 MG CAPSULE PO PRN (22:16)
[2017-01-24] MEDS: ATORVASTATIN 10 MG TABLET PO SCH (22:17)
--- NOTE | 2017-01-24 22:17 | NUR ---
GPS/SPEECH LANGUAGE ASSISTANT NOTES: ACCUCHECK DONE. BS NOTED AT 141. PT. REFUSED INSULIN COVERAGE PER SLIDING SCALE ORDERED. OFFERED 3X. EXPLAINED RISK AND BENEFITS. PT. STILL REFUSED.
[2017-01-25] MEDS: BLOOD SUGAR DIAGNOSTIC 1 EACH STRIP VI SCH ×4 (07:40→21:47)
[2017-01-25 08:00] VITALS: BP 145/78
[2017-01-25] MEDS: POLYETHYLENE GLYCOL 3350 17 GM POWD.PACK PO SCH ×2 (08:18→16:30)
[2017-01-25] MEDS: DIVALPROEX SODIUM 250 MG TABLET.DR PO SCH ×4 (08:18→21:46)
[2017-01-25] MEDS: NITROFURANTOIN/NITROFURAN MAC 100 MG CAPSULE PO SCH ×2 (08:18→21:46)
[2017-01-25] MEDS: PANTOPRAZOLE 40 MG TABLET.DR PO SCH (08:18)
[2017-01-25] MEDS: CEPHALEXIN MONOHYDRATE 500 MG CAPSULE PO SCH ×2 (08:18→21:45)
[2017-01-25] MEDS: DOCUSATE SODIUM 250 MG CAPSULE PO SCH (08:18)
[2017-01-25] MEDS: MULTIVITAMINS,THERAGRAN 1 UDTAB TABLET PO SCH (08:18)
[2017-01-25] MEDS: ASPIRIN EC 81 MG TABLET.DR PO SCH (08:18)
[2017-01-25] MEDS: FLUTICASONE PROPIONATE 16 GM BOTTLE NS SCH ×2 (08:18→16:30)
[2017-01-25] MEDS: LITHIUM CARBONATE (300 MG CAP) 300 MG CAPSULE PO SCH ×2 (08:18→21:46)
[2017-01-25] MEDS: METFORMIN 500 MG TABLET PO SCH ×2 (08:19→16:31)
[2017-01-25] MEDS: AMLODIPINE BESYLATE 5 MG TABLET PO SCH ×2 (08:19→16:31)
[2017-01-25] MEDS: LOSARTAN POTASSIUM 50 MG TABLET PO SCH (08:19)
[2017-01-25] MEDS: PIOGLITAZONE HCL 15 MG TABLET PO SCH (08:20)
[2017-01-25] MEDS: P-EPHED SUL/LORATADINE (24H) 1 TAB.SR.24H PO SCH (08:20)
[2017-01-25] MEDS: HALOPERIDOL 5 MG TABLET PO SCH ×4 (08:20→21:45)
[2017-01-25] MEDS: LORAZEPAM 0.5 MG TABLET PO PRN (15:40)
--- NOTE | 2017-01-25 15:41 | NUR ---
RN Note: Lorazepam 0.5 mg given for anxiety.
[2017-01-25 16:00] VITALS: BP 103/71
[2017-01-25] MEDS: INSULIN REGULAR, HUMAN 100 UNIT/ML 3 ML VIAL SQ PRN (17:39)
[2017-01-25 20:00] VITALS: BP 101/54
[2017-01-25] MEDS: ATORVASTATIN 10 MG TABLET PO SCH (21:46)
[2017-01-26 07:27] LABS: BASOPHILS % (AUTO) 0.2 % (0.0-2.0); EOSINOPHILS # (AUTO) 0.1 /CMM (0.0-0.7); EOSINOPHILS % (AUTO) 2.1 % (0.0-6.0); HEMATOCRIT 33 % (33-45); HEMOGLOBIN 11.1 g/dL (11.5-14.8); LYMPHOCYTES # (AUTO) 1.2 /CMM (0.8-4.8); LYMPHOCYTES % (AUTO) 17.7 % (20.0-44.0); MEAN CORPUSCULAR HEMOGLOBIN 33 PG (26.0-33.0); MEAN CORPUSCULAR HGB CONC 33 g/dl (31.0-36.0); MEAN CORPUSCULAR VOLUME 98 fL (82-100); MONOCYTES # (AUTO) 0.8 /CMM (0.1-1.30); MONOCYTES % (AUTO) 11.4 % (2.0-12.0); NEUTROPHILS # (AUTO) 4.6 /CMM (1.8-8.9); NEUTROPHILS % (AUTO) 68.6 % (43.0-81.0); PLATELET COUNT (AUTO) 209 /CMM (150-450); RDW COEFFICIENT OF VARIATION 14.1 (11.5-15.0); RED BLOOD CELL COUNT(AUTO) 3.41 MIL/uL (4.0-5.2); WHITE BLOOD COUNT (AUTO) 6.7 K/uL (4.3-11.0)
[2017-01-26 07:46] LABS: CALCIUM, SERUM 9.5 mg/dL (8.5-10.1); CARBON DIOXIDE 31 mmol/L (21-32); CHLORIDE 105 mmol/L (98-107); CREATININE 0.9 mg/dL (0.6-1.3); GLUCOSE 111 mg/dL (74-106); SODIUM SERUM 140 mmol/L (136-145); UREA NITROGEN, BLOOD 31 mg/dL (7-18)
[2017-01-26] MEDS: BLOOD SUGAR DIAGNOSTIC 1 EACH STRIP VI SCH ×4 (07:58→21:49)
[2017-01-26 08:00] VITALS: BP 139/69
[2017-01-26] MEDS: METFORMIN 500 MG TABLET PO SCH ×2 (08:21→16:04)
[2017-01-26] MEDS: ASPIRIN EC 81 MG TABLET.DR PO SCH (08:21)
[2017-01-26] MEDS: MULTIVITAMINS,THERAGRAN 1 UDTAB TABLET PO SCH (08:21)
[2017-01-26] MEDS: NITROFURANTOIN/NITROFURAN MAC 100 MG CAPSULE PO SCH ×2 (08:21→21:04)
[2017-01-26] MEDS: POLYETHYLENE GLYCOL 3350 17 GM POWD.PACK PO SCH ×2 (08:21→16:04)
[2017-01-26] MEDS: CEPHALEXIN MONOHYDRATE 500 MG CAPSULE PO SCH ×2 (08:21→21:04)
[2017-01-26] MEDS: DOCUSATE SODIUM 250 MG CAPSULE PO SCH (08:21)
[2017-01-26] MEDS: DIVALPROEX SODIUM 250 MG TABLET.DR PO SCH ×4 (08:21→21:04)
[2017-01-26] MEDS: HALOPERIDOL 5 MG TABLET PO SCH ×4 (08:22→21:04)
[2017-01-26] MEDS: AMLODIPINE BESYLATE 5 MG TABLET PO SCH ×2 (08:22→16:05)
[2017-01-26] MEDS: PIOGLITAZONE HCL 15 MG TABLET PO SCH (08:22)
[2017-01-26] MEDS: LITHIUM CARBONATE (300 MG CAP) 300 MG CAPSULE PO SCH ×2 (08:22→21:04)
[2017-01-26] MEDS: PANTOPRAZOLE 40 MG TABLET.DR PO SCH (08:22)
[2017-01-26] MEDS: LOSARTAN POTASSIUM 50 MG TABLET PO SCH (08:23)
[2017-01-26] MEDS: FLUTICASONE PROPIONATE 16 GM BOTTLE NS SCH ×2 (08:26→16:06)
[2017-01-26] MEDS: P-EPHED SUL/LORATADINE (24H) 1 TAB.SR.24H PO SCH (08:26)
[2017-01-26 16:00] VITALS: BP 114/64
[2017-01-26] MEDS: INSULIN REGULAR, HUMAN 100 UNIT/ML 3 ML VIAL SQ PRN (17:57)
--- NOTE | 2017-01-26 17:57 | NUR ---
GPS/RN-NOTES PATIENT BLOOD SUGAR WAS 144MG/DL, 2 UNITS OF R INSULIN GIVEN ORDERED.
[2017-01-26 20:00] VITALS: BP 131/59
[2017-01-26] MEDS: ATORVASTATIN 10 MG TABLET PO SCH (21:49)
[2017-01-26] MEDS: TEMAZEPAM 7.5 MG CAPSULE PO PRN (21:49)
[2017-01-27 08:00] VITALS: BP 121/68
--- NOTE | 2017-01-27 08:01 | NUR ---
[id number]: BLOOD SUGAR IS 82 MG/DL AND NO INSULIN REQUIRED AT THIS TIME.
[2017-01-27] MEDS: PIOGLITAZONE HCL 15 MG TABLET PO SCH (08:28)
[2017-01-27] MEDS: ASPIRIN EC 81 MG TABLET.DR PO SCH (08:28)
[2017-01-27] MEDS: CEPHALEXIN MONOHYDRATE 500 MG CAPSULE PO SCH ×2 (08:28→22:13)
[2017-01-27] MEDS: HALOPERIDOL 5 MG TABLET PO SCH ×4 (08:28→22:14)
[2017-01-27] MEDS: LITHIUM CARBONATE (300 MG CAP) 300 MG CAPSULE PO SCH ×2 (08:28→22:14)
[2017-01-27] MEDS: PANTOPRAZOLE 40 MG TABLET.DR PO SCH (08:28)
[2017-01-27] MEDS: LOSARTAN POTASSIUM 50 MG TABLET PO SCH (08:29)
[2017-01-27] MEDS: MULTIVITAMINS,THERAGRAN 1 UDTAB TABLET PO SCH (08:29)
[2017-01-27] MEDS: DIVALPROEX SODIUM 250 MG TABLET.DR PO SCH ×4 (08:29→22:14)
[2017-01-27] MEDS: DOCUSATE SODIUM 250 MG CAPSULE PO SCH (08:29)
[2017-01-27] MEDS: AMLODIPINE BESYLATE 5 MG TABLET PO SCH ×2 (08:31→17:11)
[2017-01-27] MEDS: POLYETHYLENE GLYCOL 3350 17 GM POWD.PACK PO SCH ×2 (08:31→17:10)
[2017-01-27] MEDS: NITROFURANTOIN/NITROFURAN MAC 100 MG CAPSULE PO SCH ×2 (08:31→22:14)
[2017-01-27] MEDS: METFORMIN 500 MG TABLET PO SCH ×2 (08:34→17:10)
[2017-01-27] MEDS: P-EPHED SUL/LORATADINE (24H) 1 TAB.SR.24H PO SCH (08:37)
[2017-01-27] MEDS: BLOOD SUGAR DIAGNOSTIC 1 EACH STRIP VI SCH ×4 (08:42→22:14)
[2017-01-27] MEDS: FLUTICASONE PROPIONATE 16 GM BOTTLE NS SCH ×2 (09:04→16:51)
--- NOTE | 2017-01-27 11:48 | NUR ---
[id number]: BLOOD SUGAR IS 94 MG /DL AND NO INSULIN REQUIRED AT THIS TIME
[2017-01-27 16:01] VITALS: BP 138/53
[2017-01-27] MEDS: INSULIN REGULAR, HUMAN 100 UNIT/ML 3 ML VIAL SQ PRN (16:53)
--- NOTE | 2017-01-27 16:53 | NUR ---
[id number]: BLOOD SUGAR IS 153 MG/DL AND GAVE 2 UNITS OF REGULAR INSULIN
[2017-01-27 20:14] VITALS: BP 111/50
[2017-01-27] MEDS: ATORVASTATIN 10 MG TABLET PO SCH (22:14)
--- NOTE | 2017-01-28 | NUR ---
RN NOTES PATIENT REFUSING PHOTOGRAPHS OF SKIN CONDITIONS TO BE TAKEN. WHEN PATIENT SEES CAMERA SHE STARTS TO GRUNT AND SHAKE HER HEAD "NO".
[2017-01-28] MEDS: PANTOPRAZOLE 40 MG TABLET.DR PO SCH (07:30)
[2017-01-28 08:28] VITALS: BP 125/56
[2017-01-28] MEDS: LOSARTAN POTASSIUM 50 MG TABLET PO SCH (09:00)
[2017-01-28] MEDS: POLYETHYLENE GLYCOL 3350 17 GM POWD.PACK PO SCH ×2 (09:00→16:56)
[2017-01-28] MEDS: CEPHALEXIN MONOHYDRATE 500 MG CAPSULE PO SCH ×2 (09:00→22:00)
[2017-01-28] MEDS: METFORMIN 500 MG TABLET PO SCH ×2 (09:00→16:51)
[2017-01-28] MEDS: DIVALPROEX SODIUM 250 MG TABLET.DR PO SCH ×4 (09:00→22:52)
[2017-01-28] MEDS: DOCUSATE SODIUM 250 MG CAPSULE PO SCH (09:00)
[2017-01-28] MEDS: P-EPHED SUL/LORATADINE (24H) 1 TAB.SR.24H PO SCH (09:00)
[2017-01-28] MEDS: PIOGLITAZONE HCL 15 MG TABLET PO SCH (09:00)
[2017-01-28] MEDS: FLUTICASONE PROPIONATE 16 GM BOTTLE NS SCH ×2 (09:00→16:57)
[2017-01-28] MEDS: MULTIVITAMINS,THERAGRAN 1 UDTAB TABLET PO SCH (09:00)
[2017-01-28] MEDS: NITROFURANTOIN/NITROFURAN MAC 100 MG CAPSULE PO SCH ×2 (09:00→22:00)
[2017-01-28] MEDS: AMLODIPINE BESYLATE 5 MG TABLET PO SCH ×2 (09:00→16:52)
[2017-01-28] MEDS: ASPIRIN EC 81 MG TABLET.DR PO SCH (09:00)
--- NOTE | 2017-01-28 09:00 | NUR ---
GPS/RN PATIENT ADAMANTLY REFUSED ALL MORNING MEDS X 3, WITH THE EXCEPTION OF LITHIUM AND HALDOL PO, EXPLAINED RISKS AND BENEFITS, CONTINUES TO REFUSE, WILL CONTINUE TO ENCOURAGE TO COMPLY WITH MD REGIMEN.
[2017-01-28] MEDS: HALOPERIDOL 5 MG TABLET PO SCH ×3 (09:05→16:51)
[2017-01-28] MEDS: LITHIUM CARBONATE (300 MG CAP) 300 MG CAPSULE PO SCH ×2 (09:05→22:52)
[2017-01-28] MEDS: BLOOD SUGAR DIAGNOSTIC 1 EACH STRIP VI SCH ×4 (09:06→23:21)
--- NOTE | 2017-01-28 12:35 | NUR ---
Discharge Planning: RUBY spoke to Nicki Thakkar from [facility], for discharge planning purposes. Per Nicki, pt can return to facility once she is stable and ready for discharge. SW will follow up to ensure pt is properly and safely discharged.
[2017-01-28] MEDS: INSULIN REGULAR, HUMAN 100 UNIT/ML 3 ML VIAL SQ PRN ×2 (12:47→17:20)
--- NOTE | 2017-01-28 13:28 | NUR ---
GPS/RN PATIENT ADAMANTLY REFUSED 2 UNITS REGULAR INSULIN X 3, EXPLAINED RISKS AND BENEFITS, CONTINUES TO REFUSE, WILL CONTINUE TO ENCOURAGE TO COMPLY WITH MD REGIMEN.
[2017-01-28 15:59] VITALS: BP 155/63
[2017-01-28 19:51] VITALS: BP 121/47
[2017-01-28] MEDS: ATORVASTATIN 10 MG TABLET PO SCH (22:52)
[2017-01-29] MEDS: TEMAZEPAM 7.5 MG CAPSULE PO PRN ×2 (02:44→21:08)
[2017-01-29 08:21] VITALS: BP 124/81
[2017-01-29] MEDS: MULTIVITAMINS,THERAGRAN 1 UDTAB TABLET PO SCH (08:25)
[2017-01-29] MEDS: LOSARTAN POTASSIUM 50 MG TABLET PO SCH (08:25)
[2017-01-29] MEDS: METFORMIN 500 MG TABLET PO SCH ×2 (08:25→16:11)
[2017-01-29] MEDS: DOCUSATE SODIUM 250 MG CAPSULE PO SCH (08:25)
[2017-01-29] MEDS: LITHIUM CARBONATE (300 MG CAP) 300 MG CAPSULE PO SCH ×2 (08:25→21:06)
[2017-01-29] MEDS: PIOGLITAZONE HCL 15 MG TABLET PO SCH (08:25)
[2017-01-29] MEDS: ASPIRIN EC 81 MG TABLET.DR PO SCH (08:25)
[2017-01-29] MEDS: AMLODIPINE BESYLATE 5 MG TABLET PO SCH ×2 (08:25→16:12)
[2017-01-29] MEDS: DIVALPROEX SODIUM 250 MG TABLET.DR PO SCH ×4 (08:26→21:06)
[2017-01-29] MEDS: PANTOPRAZOLE 40 MG TABLET.DR PO SCH (08:26)
[2017-01-29] MEDS: BLOOD SUGAR DIAGNOSTIC 1 EACH STRIP VI SCH ×4 (08:26→22:14)
[2017-01-29] MEDS: FLUTICASONE PROPIONATE 16 GM BOTTLE NS SCH ×2 (08:26→16:11)
[2017-01-29] MEDS: HALOPERIDOL 5 MG TABLET PO SCH ×3 (08:26→16:11)
[2017-01-29] MEDS: P-EPHED SUL/LORATADINE (24H) 1 TAB.SR.24H PO SCH (08:30)
[2017-01-29] MEDS: CEPHALEXIN MONOHYDRATE 500 MG CAPSULE PO SCH ×2 (08:31→21:05)
[2017-01-29] MEDS: NITROFURANTOIN/NITROFURAN MAC 100 MG CAPSULE PO SCH ×2 (08:31→21:00)
[2017-01-29] MEDS: POLYETHYLENE GLYCOL 3350 17 GM POWD.PACK PO SCH ×2 (08:32→16:12)
--- NOTE | 2017-01-29 11:51 | NUR ---
Discharge Planning: SW contacted Nicki Khanrera, from [facility] to inform her of pts discharge plan (i.e. pt will be discharging tomorrow, 01/30/17 at 11:00 am). Nicki was in agreement with the discharge plan. SW will fax inquiry to facility (face sheet, medical H&P and medication list). SW will follow up to ensure pt is properly and safely discharged.
[2017-01-29 15:54] VITALS: BP 100/69
[2017-01-29] MEDS: INSULIN REGULAR, HUMAN 100 UNIT/ML 3 ML VIAL SQ PRN (18:13)
--- NOTE | 2017-01-29 19:14 | NUR ---
GPS/RN BS 161, ADMINISTERED 3 UNITS REGULAR INSULIN, WILL CONTINUE TO MONITOR
[2017-01-29] MEDS: ATORVASTATIN 10 MG TABLET PO SCH (21:07)
[2017-01-29 21:13] VITALS: BP 109/70
[2017-01-30] MEDS: BLOOD SUGAR DIAGNOSTIC 1 EACH STRIP VI SCH (07:47)
[2017-01-30] MEDS: PIOGLITAZONE HCL 15 MG TABLET PO SCH (08:12)
[2017-01-30] MEDS: ASPIRIN EC 81 MG TABLET.DR PO SCH (08:12)
[2017-01-30] MEDS: P-EPHED SUL/LORATADINE (24H) 1 TAB.SR.24H PO SCH (08:12)
[2017-01-30] MEDS: PANTOPRAZOLE 40 MG TABLET.DR PO SCH (08:12)
[2017-01-30] MEDS: DOCUSATE SODIUM 250 MG CAPSULE PO SCH (08:12)
[2017-01-30] MEDS: LITHIUM CARBONATE (300 MG CAP) 300 MG CAPSULE PO SCH (08:13)
[2017-01-30] MEDS: CEPHALEXIN MONOHYDRATE 500 MG CAPSULE PO SCH (08:13)
[2017-01-30] MEDS: DIVALPROEX SODIUM 250 MG TABLET.DR PO SCH (08:13)
[2017-01-30] MEDS: NITROFURANTOIN/NITROFURAN MAC 100 MG CAPSULE PO SCH (08:13)
[2017-01-30] MEDS: LOSARTAN POTASSIUM 50 MG TABLET PO SCH (08:13)
[2017-01-30] MEDS: MULTIVITAMINS,THERAGRAN 1 UDTAB TABLET PO SCH (08:13)
[2017-01-30] MEDS: HALOPERIDOL 5 MG TABLET PO SCH (08:13)
[2017-01-30] MEDS: POLYETHYLENE GLYCOL 3350 17 GM POWD.PACK PO SCH (08:14)
[2017-01-30] MEDS: AMLODIPINE BESYLATE 5 MG TABLET PO SCH (08:14)
[2017-01-30 08:34] VITALS: BP 124/65
[2017-01-30] MEDS: FLUTICASONE PROPIONATE 16 GM BOTTLE NS SCH (09:16)
[2017-01-30] MEDS: METFORMIN 500 MG TABLET PO SCH (09:31)
--- NOTE | 2017-01-30 14:03 | NUR ---
Discharge Note: Patient alert with no distress. Patient is med compliant and treatment compliant. All belongings are with the patient. No agitation and pain noted. Vital signs are stable. SI, HI, and VH/AH denied during discharge. Dr Castañeda and Dr Howard notified of discharged and orders. All orders carried out. Report was given to Hilary at [facility]. Patient discharged with ambulance at 1130.
--- NOTE | 2017-01-30 16:53 | NUR ---
Discharge Note: Patient will be discharged to [facility], [address] [address]; and fax# via ambulance (trip # [id number]). Pt will be picked up at 11:30 am. Pt and Pts brother, Moi Nick have been notified and are in agreement. Pt will follow up [facility] Reinaldo Howard; [address] her order tracer and Dr. Crenshaw for psychiatric services.
== END 2017-01-30 11:30 | DRG 885 ==
LOC: ER 12:43 → GPS 20:19
PROVIDERS: ADMIT Psychiatry & Neurology Psychiatry; ATTEND Psychiatry & Neurology Psychiatry
DX: F25.0 Schizoaffective disorder, bipolar type (principal); E11.9 Type 2 diabetes mellitus without complications; F03.90 Unspecified dementia, unspecified severity, without behavioral disturbance, psychotic disturbance, mood disturbance, and anxiety; I10 Essential (primary) hypertension; I49.9 Cardiac arrhythmia, unspecified; K21.9 Gastro-esophageal reflux disease without esophagitis; F41.9 Anxiety disorder, unspecified; Z88.2 Allergy status to sulfonamides; J44.9 Chronic obstructive pulmonary disease, unspecified; Z87.891 Personal history of nicotine dependence; Z87.440 Personal history of urinary (tract) infections; Z79.899 Other long term (current) drug therapy; Z79.84 Long term (current) use of oral hypoglycemic drugs; Z79.82 Long term (current) use of aspirin; F29 Unspecified psychosis not due to a substance or known physiological condition
CPT/HCPCS: 36415; 80048-TC; 80053-TC; 80061-TC; 80076-TC; 80164-TC; 80305; 81000-TC; 82962-TC; 83540-TC; 85025-TC; 87081-TC; 87086-TC; 87186-TC; G0480; J1815; J2060; J3490

== ENCOUNTER 2017-07-03 13:28 | Inpatient (IN) | payer MEDICARE, MEDICAID ==
[~2017-07-03] VITALS: Ht 162.6 cm; Wt 73.9 kg
[~2017-07-03 13:28] MED LIST changes: -ACET-868 PO; -AMLO5TAB2 PO; +AMLO5TAB7 PO; +CITA20TA16 PO; -DIVA250T PO; -HYDR-552 PO; -MAG30ORA PO; +PIOG30TA10 PO; +POLY17PO4 PO; +RISP1TAB27 PO
--- NOTE | 2017-07-03 13:50 | NUR ---
PATIENT TO ED FOR MEDICAL CLEARANCE FOR PSYCHE EVAL. PATIENT ON 5150 HOLD. PATIENT RECEIVED AWAKE. NOTED SCREAMING AND YELLING FOR NO APPARENT REASON, AFEBRILE. VSS
--- NOTE | 2017-07-03 14:02 | NUR ---
URINE SAMPLE SENT TO LAB
[2017-07-03 14:11] LABS: APPEARANCE,URINE Clear (CLEAR); BILIRUBIN,URINE SMALL (NEGATIVE); BLOOD, URINE Negative Ery/uL (NEGATIVE); COLOR,URINE Yellow (YELLOW); KETONES,URINE Negative (NEGATIVE); LEUKOCYTE ESTERASE ,URINE Negative (NEGATIVE); NITRITE, URINE Negative (NEGATIVE); PROTEIN,URINE Negative (NEGATIVE); UGLUCOSE 500 MG/DL mg/dL (NEGATIVE); UROBILINOGEN,URINE 0.2 EU/dL (0.2)
[2017-07-03] MEDS ORDERED: OLANZAPINE 5 MG TABLET ONE (14:40)
[2017-07-03 14:41] LABS: BASOPHILS % (AUTO) 0.5 % (0.0-2.0); EOSINOPHILS % (AUTO) 0.6 % (0.0-6.0); HEMATOCRIT 34 % (33-45); HEMOGLOBIN 12.4 g/dL (11.5-14.8); LYMPHOCYTES # (AUTO) 1.9 /CMM (0.8-4.8); LYMPHOCYTES % (AUTO) 22.5 % (20.0-44.0); MEAN CORPUSCULAR HGB CONC 36 g/dl (31.0-36.0); MEAN CORPUSCULAR VOLUME 96 fL (82-100); MONOCYTES # (AUTO) 0.8 /CMM (0.1-1.30); MONOCYTES % (AUTO) 9.7 % (2.0-12.0); NEUTROPHILS # (AUTO) 5.6 /CMM (1.8-8.9); NEUTROPHILS % (AUTO) 66.7 % (43.0-81.0); PLATELET COUNT (AUTO) 266 /CMM (150-450); RDW COEFFICIENT OF VARIATION 12.4 (11.5-15.0); RED BLOOD CELL COUNT(AUTO) 3.59 MIL/uL (4.0-5.2); WHITE BLOOD COUNT (AUTO) 8.4 K/uL (4.3-11.0)
[2017-07-03 14:48] LABS: CALCIUM, SERUM 9.3 mg/dL (8.5-10.1); CARBON DIOXIDE 26 mmol/L (21-32); CHLORIDE 106 mmol/L (98-107); CREATININE 0.9 mg/dL (0.6-1.3); GLUCOSE 210 mg/dL (74-106); POTASSIUM 4.2 mmol/L (3.5-5.1); SODIUM SERUM 140 mmol/L (136-145); UREA NITROGEN, BLOOD 21 mg/dL (7-18)
--- NOTE | 2017-07-03 14:48 | NUR ---
EKG IN PROGRESS
[2017-07-03 14:54] LABS: ACETAMINOPHEN 0 ug/ml (10-30); ALANINE AMINOTRANSFERASE 22 U/L (12-78); ALBUMIN 3.5 g/dL (3.4-5.0); ALCOHOL, BLOOD < 3 mg/dL (0-0); ALKALINE PHOSPHATASE 92 U/L (46-116); ASPARTATE AMINOTRANSFERASE 16 U/L (15-37); BILIRUBIN,DIRECT 0.2 mg/dL (0.0-0.2); BILIRUBIN,TOTAL 0.9 mg/dL (0.2-1.0); SALICYLATE < 0.2 mg/dL (2.8-20.0)
--- NOTE | 2017-07-03 14:56 | NUR ---
PT IS ON 5[address], DR BIANCHI IS THE ACCEPTING PSYCHIATRIST, AND PT IS ASSIGNED TO GPS RM#: [id number]
[2017-07-03] MEDS ORDERED: OLANZAPINE 5 MG TABLET PO ONE (15:00)
[2017-07-03] MEDS ORDERED: HALO10TA13 PO (15:05)
[2017-07-03] MEDS ORDERED: METF-440 PO (15:05)
--- NOTE | 2017-07-03 15:25 | NUR ---
PATIENT TRANSPORTED TO [facility]. S
--- NOTE | 2017-07-03 15:27 | NUR ---
GPS ROOM IS NOW CHANGED TO RM 219.
[2017-07-03 16:00] VITALS: BP 135/66
[2017-07-03] MEDS ORDERED: MAG HYDROX/AL HYDROX/SIMETH 30 ML UDC PO PRN (16:30)
--- NOTE | 2017-07-03 16:40 | NUR ---
PATIENT ARRIVED TO UNIT AT 1545 VIA WHEELCHAIR FROM ER. PATIENT ADMITTED FOR 5150 DTO. PATIENT CAME FROM FACILITY FOR HITTING STAFF. PATIENT SPEECH IS GARBLED AND IS HARD OF HEARING. FARRAG MADE AWARE OF ADMISSION AND ADMITTING ORDERS ARE RECEIVED. CONSUMER INSIGHTS INTERN MADE AWARE OF PATIENT AND MED RECON. PATIENT UNABLE TO SIGN ADMISSION PAPERS, BUT SECOND NURSE WITNESSED. SKIN ASSESSMENT DONE AND IN CHART. PATIENT FAMILIAR WITH POLICIES AND PROCEDURES.
--- NOTE | 2017-07-03 17:27 | NUR ---
RN-CO: Notified Mehrdad Bhardwaj FIELD SAMPLING TECHNICIAN to reconcile her home medications.
[2017-07-03] MEDS: LORAZEPAM 0.5 MG TABLET PO PRN (21:11)
--- NOTE | 2017-07-03 21:11 | NUR ---
GPS RN NOTES: PATIENT IS VERY ANXIOUS, YELLING AND SCREAMING. VSS. ADMINISTERED ATIVAN 1MG PO ORDERED. WILL CONTINUE TO MONITOR.
--- NOTE | 2017-07-03 21:13 | NUR ---
GPS RN NOTES: REPORT GIVEN TO PRISCILA LEE FOR CONTINUITY OF CARE D/T CHANGE OF ASSIGNMENT.
--- NOTE | 2017-07-03 21:15 | NUR ---
GPS RN NOTE, RECEIVED PATIENT AWAKE AND IN BED, NO S/S OR COMPLAINTS OF PAIN AT THIS TIME. PATIENT DISPLAYING NO S/S OF APPARENT DISTRESS AT THIS TIME. PATIENT BREATHING IS UNLABORED WITH EQUAL RISE AND FALL OF THE CHEST. PATIENT ALERT AND ORIENTED X 1 WITH A SPO2 95%. PATIENT IS MED COMPLIANT, DISORGANIZED, MUMBLING, UNCOOPERATIVE AT TIMES, GUARDED, NEEDS REORIENTATION. PATIENT DENIES SUICIDE IDEATIONS AND HOMICIDAL IDEATIONS AT THIS TIME. PATIENT ASSISTED WITH TURNING AND REPOSITIONING Q2HR AND PRN FOR COMFORT AND CIRCULATION. PATIENT HAS NO NEEDS AT THIS TIME. PATIENT EDUCATED ON THE USE OF THE CALL MCCLAIN. PATIENT BED SIDE RAILS UP X2 FOR SAFETY, BED IS LOCKED AND LOW WILL CONTINUE TO MONITOR AND MAINTAIN AND MAINTAIN SAFETY.
[2017-07-03 21:41] VITALS: BP 145/85
[2017-07-03] MEDS ORDERED: DEXTROSE 50%-WATER 50 ML DISP.SYRIN IV PRN (22:30)
[2017-07-04] MEDS: ACETAMINOPHEN 325 MG TABLET PO PRN ×2 (00:13→22:54)
--- NOTE | 2017-07-04 00:13 | NUR ---
GPS RN NOTE, PATIENT HAS A COMPLAINT OF TOOTH PAIN AT 3 OUT 10 ON THE PAIN SCALE AND IS REQUESTING PAIN MEDICATION AT THIS TIME. PATIENT VITAL SIGNS ARE STABLE. GAVE TYLENOL 650MG PO Q6HR PRN ORDERED. WILL REASSESS FOR PAIN AND I WILL CONTINUE TO MONITOR THIS PATIENT.
[2017-07-04] MEDS: LORAZEPAM 0.5 MG TABLET PO PRN (06:23)
[2017-07-04 07:15] LABS: ALANINE AMINOTRANSFERASE 27 U/L (12-78); ALBUMIN 3.6 g/dL (3.4-5.0); ALKALINE PHOSPHATASE 90 U/L (46-116); ASPARTATE AMINOTRANSFERASE 18 U/L (15-37); BILIRUBIN,TOTAL 1.2 mg/dL (0.2-1.0); CALCIUM, SERUM 9.5 mg/dL (8.5-10.1); CARBON DIOXIDE 26 mmol/L (21-32); CHLORIDE 106 mmol/L (98-107); CREATININE 0.7 mg/dL (0.6-1.3); GLUCOSE 178 mg/dL (74-106); POTASSIUM 3.9 mmol/L (3.5-5.1); SODIUM SERUM 142 mmol/L (136-145); UREA NITROGEN, BLOOD 18 mg/dL (7-18)
[2017-07-04 07:20] LABS: CHOLESTEROL 216 mg/dL (<200); HDL CHOLESTEROL 87 mg/dL (40-60); LDL 124 mg/dL (0-99); THYROID STIMULATING HORMONE 0.717 uIU/mL (0.358-3.74); TRIGLYCERIDES 164 mg/dL (30-150)
[2017-07-04] MEDS: BLOOD SUGAR DIAGNOSTIC 1 EACH STRIP VI SCH ×4 (07:30→21:28)
[2017-07-04 08:00] VITALS: BP 98/69
--- NOTE | 2017-07-04 08:00 | NUR ---
MS RN RECEIVE DON BED, SLEEPING ,NO DISTYRESS NOTED, LUNGS ARE CLEAR,ABDOMEN SOFT.POSITIVE BOWEL SOUNDS,DENIES PAIN AT THIS TIME.
--- NOTE | 2017-07-04 08:30 | NUR ---
MS LEE BS - 189-REFUSED COVERAGE,WILL MONITOR PATIENT.
[2017-07-04] MEDS: LOSARTAN POTASSIUM 50 MG TABLET PO SCH (09:00)
[2017-07-04] MEDS: AMLODIPINE BESYLATE 5 MG TABLET PO SCH ×2 (09:00→17:51)
[2017-07-04] MEDS: PANTOPRAZOLE 40 MG TABLET.DR PO SCH (09:33)
[2017-07-04] MEDS: INSULIN REGULAR, HUMAN 100 UNIT/ML 3 ML VIAL SQ PRN ×2 (12:16→17:57)
[2017-07-04 16:05] VITALS: BP 130/74
[2017-07-04] MEDS: HALOPERIDOL 5 MG TABLET PO SCH (17:50)
[2017-07-04] MEDS: DIVALPROEX SODIUM 125 MG CAP.SPRINK PO SCH (17:50)
--- NOTE | 2017-07-04 18:27 | NUR ---
MS RN IN THE DINING ROOM, BS - 136 - 2 UNITS GIVEN,ALL NEEDS ATTENDED.
[2017-07-04 19:51] VITALS: BP 112/62
[2017-07-04 20:00] VITALS: BP 112/62
[2017-07-04] MEDS: ATORVASTATIN 10 MG TABLET PO SCH (21:28)
[2017-07-04] MEDS: *INSULIN REGULAR(HUMULIN R)HUM 100 UNIT/ML VIAL SQ PRN (21:29)
[2017-07-04] MEDS ORDERED: INSULIN GLARGINE, 100 UNIT/ML CARTRIDGE SQ SCH (22:00)
[2017-07-04] MEDS ORDERED: INSULIN DETEMIR 100 UNIT/ML CARTRIDGE SQ SCH (22:00)
[2017-07-05 08:00] VITALS: BP 131/80
[2017-07-05] MEDS: BLOOD SUGAR DIAGNOSTIC 1 EACH STRIP VI SCH ×4 (08:11→21:58)
[2017-07-05] MEDS: DIVALPROEX SODIUM 125 MG CAP.SPRINK PO SCH ×3 (08:12→16:06)
[2017-07-05] MEDS: HALOPERIDOL 5 MG TABLET PO SCH ×3 (08:12→16:06)
[2017-07-05] MEDS: LOSARTAN POTASSIUM 50 MG TABLET PO SCH (08:12)
[2017-07-05] MEDS: AMLODIPINE BESYLATE 5 MG TABLET PO SCH ×2 (08:13→16:06)
[2017-07-05] MEDS: PANTOPRAZOLE 40 MG TABLET.DR PO SCH (08:13)
[2017-07-05] MEDS: INSULIN REGULAR, HUMAN 100 UNIT/ML 3 ML VIAL SQ PRN ×3 (08:24→17:46)
[2017-07-05] MEDS: LORAZEPAM 0.5 MG TABLET PO PRN (09:25)
--- NOTE | 2017-07-05 09:26 | NUR ---
GPS RN NOTES: PATIENT ANXIOUS, RESTLESS VSS. ADMINISTERED ATIVAN 1MG PO ORDERED. WILL CONTINUE TO MONITOR.
--- NOTE | 2017-07-05 13:03 | NUR ---
SW contacted the household personal assistant listed on the face sheet and left a voicemail.
--- NOTE | 2017-07-05 13:03 | NUR ---
Initial Discharge Plan: The pt resides at [facility] [[address] [place] [address]; ]. Pt expressed that she does not want to return here and is open to other facilities. SW spoke with the pt about returning to a facility that she had attended before. SW attempted to speak to the family regarding the discharge plan in accordance to the pt. SW will speak to MD and the patient regarding the most appropriate discharge plan. SW will form a safe and proper discharge plan.
--- NOTE | 2017-07-05 13:04 | NUR ---
SW contacted previous facility to determine whether or not pt would be accepted back upon discharge.
--- NOTE | 2017-07-05 13:04 | NUR ---
RUBY contacted a facility of pt's choice in regards to a possible referral upon discharge but was unable to speak to the admissions department.
[2017-07-05 16:00] VITALS: BP 118/73
--- NOTE | 2017-07-05 16:23 | NUR ---
Spoke to Jeffery from [facility] and discussed faxing over a referral for when pt is ready to discharge.
[2017-07-05 20:00] VITALS: BP 128/77
[2017-07-05] MEDS: INSULIN GLARGINE, 100 UNIT/ML CARTRIDGE SQ SCH (21:53)
[2017-07-05] MEDS: *INSULIN REGULAR(HUMULIN R)HUM 100 UNIT/ML VIAL SQ PRN (21:55)
[2017-07-05] MEDS: ATORVASTATIN 10 MG TABLET PO SCH (21:58)
[2017-07-06] MEDS: LORAZEPAM 0.5 MG TABLET PO PRN (05:33)
--- NOTE | 2017-07-06 05:33 | NUR ---
GPS RN NOTES PTS NOTED WITH AGITATION ,ATIVAN 1MG GIVEN ORDERED , WILL CONTINUE MONITOR PTS.
--- NOTE | 2017-07-06 06:07 | NUR ---
GPS NOTES PTS REFUSED LAB DRAWS , EXPLAIN RISK AND BENEFITS ,STILL PTS REFUSED WILL TRY AGAIN LATER.
[2017-07-06] MEDS: BLOOD SUGAR DIAGNOSTIC 1 EACH STRIP VI SCH ×4 (07:56→21:56)
[2017-07-06] MEDS: HALOPERIDOL 5 MG TABLET PO SCH ×3 (08:13→17:00)
[2017-07-06] MEDS: AMLODIPINE BESYLATE 5 MG TABLET PO SCH ×2 (08:13→17:00)
[2017-07-06] MEDS: PANTOPRAZOLE 40 MG TABLET.DR PO SCH (08:13)
[2017-07-06] MEDS: DIVALPROEX SODIUM 125 MG CAP.SPRINK PO SCH ×2 (08:13→08:31)
[2017-07-06] MEDS: LOSARTAN POTASSIUM 50 MG TABLET PO SCH (08:14)
[2017-07-06 08:27] VITALS: BP 121/59
[2017-07-06] MEDS: INSULIN REGULAR, HUMAN 100 UNIT/ML 3 ML VIAL SQ PRN ×2 (09:21→12:19)
[2017-07-06] MEDS: LITHIUM CARBONATE 150 MG CAPSULE PO SCH ×2 (13:37→21:46)
[2017-07-06 15:50] VITALS: BP 106/44
[2017-07-06] MEDS ORDERED: ONDANSETRON 4 MG TAB.RAPDIS SL PRN (19:00)
[2017-07-06 20:00] VITALS: BP 134/62
[2017-07-06] MEDS: ATORVASTATIN 10 MG TABLET PO SCH (21:46)
[2017-07-06] MEDS: INSULIN GLARGINE, 100 UNIT/ML CARTRIDGE SQ SCH (21:52)
--- NOTE | 2017-07-07 00:25 | NUR ---
Pt has been very easily irritable but compliant with meds, accucheck, & Insulin administration.
[2017-07-07 08:00] VITALS: BP 106/61
[2017-07-07] MEDS: LOSARTAN POTASSIUM 50 MG TABLET PO SCH (08:25)
[2017-07-07] MEDS: LITHIUM CARBONATE 150 MG CAPSULE PO SCH ×2 (08:25→21:17)
[2017-07-07] MEDS: BLOOD SUGAR DIAGNOSTIC 1 EACH STRIP VI SCH ×4 (08:25→22:11)
[2017-07-07] MEDS: PANTOPRAZOLE 40 MG TABLET.DR PO SCH (08:25)
[2017-07-07] MEDS: HALOPERIDOL 5 MG TABLET PO SCH ×3 (08:25→17:31)
[2017-07-07] MEDS: AMLODIPINE BESYLATE 5 MG TABLET PO SCH ×2 (08:30→17:00)
[2017-07-07] MEDS: INSULIN REGULAR, HUMAN 100 UNIT/ML 3 ML VIAL SQ PRN ×2 (08:33→12:34)
[2017-07-07 16:00] VITALS: BP 133/59
[2017-07-07 18:24] LABS: BASOPHILS % (AUTO) 0.4 % (0.0-2.0); EOSINOPHILS % (AUTO) 0.9 % (0.0-6.0); HEMATOCRIT 34 % (33-45); HEMOGLOBIN 11.9 g/dL (11.5-14.8); LYMPHOCYTES % (AUTO) 19.3 % (20.0-44.0); MEAN CORPUSCULAR HGB CONC 36 g/dl (31.0-36.0); MEAN CORPUSCULAR VOLUME 97 fL (82-100); MONOCYTES % (AUTO) 10.5 % (2.0-12.0); NEUTROPHILS # (AUTO) 5.8 /CMM (1.8-8.9); NEUTROPHILS % (AUTO) 68.9 % (43.0-81.0); PLATELET COUNT (AUTO) 245 /CMM (150-450); RDW COEFFICIENT OF VARIATION 12.9 (11.5-15.0); RED BLOOD CELL COUNT(AUTO) 3.47 MIL/uL (4.0-5.2); WHITE BLOOD COUNT (AUTO) 8.5 K/uL (4.3-11.0)
[2017-07-07 18:25] LABS: LYMPHOCYTES # (AUTO) 1.6 /CMM (0.8-4.8); MONOCYTES # (AUTO) 0.9 /CMM (0.1-1.30)
[2017-07-07 18:39] LABS: CALCIUM, SERUM 9.6 mg/dL (8.5-10.1); CARBON DIOXIDE 27 mmol/L (21-32); CHLORIDE 102 mmol/L (98-107); CREATININE 0.9 mg/dL (0.6-1.3); GLUCOSE 165 mg/dL (74-106); SODIUM SERUM 135 mmol/L (136-145); UREA NITROGEN, BLOOD 23 mg/dL (7-18)
[2017-07-07 18:55] LABS: THYROID STIMULATING HORMONE 0.277 uIU/mL (0.358-3.74)
[2017-07-07] MEDS: ATORVASTATIN 10 MG TABLET PO SCH (21:17)
[2017-07-07 21:56] VITALS: BP 149/54
[2017-07-07] MEDS: *INSULIN REGULAR(HUMULIN R)HUM 100 UNIT/ML VIAL SQ PRN (22:10)
[2017-07-07] MEDS: INSULIN GLARGINE, 100 UNIT/ML CARTRIDGE SQ SCH (22:10)
[2017-07-07 23:00] VITALS: BP_SYST 126; BP_SYST 132; BP_DIAS 70; BP_DIAS 74
[2017-07-08] MEDS: BLOOD SUGAR DIAGNOSTIC 1 EACH STRIP VI SCH ×4 (07:30→21:28)
[2017-07-08] MEDS: HALOPERIDOL 5 MG TABLET PO SCH ×3 (08:04→16:11)
[2017-07-08] MEDS: PANTOPRAZOLE 40 MG TABLET.DR PO SCH (08:05)
[2017-07-08] MEDS: LOSARTAN POTASSIUM 50 MG TABLET PO SCH (08:05)
[2017-07-08] MEDS: AMLODIPINE BESYLATE 5 MG TABLET PO SCH ×2 (08:05→16:15)
[2017-07-08] MEDS: LITHIUM CARBONATE 150 MG CAPSULE PO SCH ×2 (08:05→21:28)
[2017-07-08 08:29] VITALS: BP 141/78
[2017-07-08] MEDS: INSULIN REGULAR, HUMAN 100 UNIT/ML 3 ML VIAL SQ PRN ×3 (12:13→21:33)
[2017-07-08 16:00] VITALS: BP 130/64
[2017-07-08 20:13] VITALS: BP 150/62
[2017-07-08] MEDS: ATORVASTATIN 10 MG TABLET PO SCH (21:28)
[2017-07-08] MEDS: INSULIN GLARGINE, 100 UNIT/ML CARTRIDGE SQ SCH (21:35)
[2017-07-09 08:00] VITALS: BP 100/57
[2017-07-09] MEDS: PANTOPRAZOLE 40 MG TABLET.DR PO SCH (08:35)
[2017-07-09] MEDS: AMLODIPINE BESYLATE 5 MG TABLET PO SCH ×2 (08:35→17:10)
[2017-07-09] MEDS: HALOPERIDOL 5 MG TABLET PO SCH ×3 (08:35→17:10)
[2017-07-09] MEDS: LITHIUM CARBONATE 150 MG CAPSULE PO SCH ×3 (08:35→17:10)
[2017-07-09] MEDS: LOSARTAN POTASSIUM 50 MG TABLET PO SCH (08:35)
[2017-07-09] MEDS: BLOOD SUGAR DIAGNOSTIC 1 EACH STRIP VI SCH ×4 (08:37→21:22)
[2017-07-09] MEDS: INSULIN REGULAR, HUMAN 100 UNIT/ML 3 ML VIAL SQ PRN ×3 (08:45→21:22)
--- NOTE | 2017-07-09 08:45 | NUR ---
[id number]: BLOOD SUGAR IS 156 MG/DL AND GAVE 2 UNITS OF REGULAR INSULIN
--- NOTE | 2017-07-09 11:54 | NUR ---
[id number]: BLOOD SUGAR IS 204 MG/DL AND GAVE 6 UNITS OF REGULAR INSULIN
--- NOTE | 2017-07-09 15:24 | NUR ---
RUBY faxed over a referral to Jeffery from [facility] regarding placement for pt upon discharge.
[2017-07-09 16:00] VITALS: BP 117/53
--- NOTE | 2017-07-09 17:33 | NUR ---
[id number]: 101 MG/DL AND NO INSULIN COVERAGE REQUIRED AT THIS TIME
[2017-07-09 20:04] VITALS: BP 123/58
[2017-07-09] MEDS: ATORVASTATIN 10 MG TABLET PO SCH (21:17)
[2017-07-09] MEDS: INSULIN GLARGINE, 100 UNIT/ML CARTRIDGE SQ SCH (21:20)
[2017-07-09 23:00] VITALS: BP 125/76
[2017-07-10] MEDS: MAGNESIUM HYDROXIDE 30 ML UDC PO PRN (05:58)
[2017-07-10] MEDS: BLOOD SUGAR DIAGNOSTIC 1 EACH STRIP VI SCH ×4 (07:34→21:23)
[2017-07-10 08:00] VITALS: BP 143/60
[2017-07-10] MEDS: PANTOPRAZOLE 40 MG TABLET.DR PO SCH (08:16)
[2017-07-10] MEDS: HALOPERIDOL 5 MG TABLET PO SCH ×3 (08:23→16:36)
[2017-07-10] MEDS: AMLODIPINE BESYLATE 5 MG TABLET PO SCH ×2 (08:24→16:36)
[2017-07-10] MEDS: LOSARTAN POTASSIUM 50 MG TABLET PO SCH (08:24)
[2017-07-10] MEDS: LITHIUM CARBONATE 150 MG CAPSULE PO SCH ×3 (08:24→16:36)
[2017-07-10] MEDS: INSULIN REGULAR, HUMAN 100 UNIT/ML 3 ML VIAL SQ PRN ×4 (08:25→21:25)
--- NOTE | 2017-07-10 08:28 | NUR ---
GPS/RN-NOTES PATIENT BLOOD SUGAR WAS 157MG/DL, 2 UNITS OF R INSULIN GIVEN ORDERED.
[2017-07-10] MEDS ORDERED: BISACODYL SUPP (10 MG) 10 MG/SUPP.RECT SUPP.RECT RC PRN (11:00)
--- NOTE | 2017-07-10 13:15 | NUR ---
GPS/RN-NOTES PATIENT BLOOD SUGAR WAS 174MG/DL, 3 UNITS OF R INSULIN GIVEN ORDERED.
--- NOTE | 2017-07-10 13:45 | NUR ---
RUBY spoke to Moi Nick , the pt's brother, and he believes that the discharge plan for her to go to [facility] is very appropriate.
[2017-07-10 16:00] VITALS: BP 128/70
--- NOTE | 2017-07-10 18:00 | NUR ---
GPS/RN-NOTES PATIENT BLOOD SUGAR WAS 187 MG/DL, 3 UNITS OF R INSULIN GIVEN ORDERED.
[2017-07-10 20:18] VITALS: BP 131/58
[2017-07-10] MEDS: ATORVASTATIN 10 MG TABLET PO SCH (21:23)
[2017-07-10] MEDS: INSULIN GLARGINE, 100 UNIT/ML CARTRIDGE SQ SCH (21:24)
[2017-07-11] MEDS: BLOOD SUGAR DIAGNOSTIC 1 EACH STRIP VI SCH ×4 (07:29→22:02)
[2017-07-11] MEDS: INSULIN REGULAR, HUMAN 100 UNIT/ML 3 ML VIAL SQ PRN ×3 (07:44→17:29)
[2017-07-11 08:00] VITALS: BP 117/65
[2017-07-11] MEDS: LOSARTAN POTASSIUM 50 MG TABLET PO SCH (08:18)
[2017-07-11] MEDS: AMLODIPINE BESYLATE 5 MG TABLET PO SCH ×2 (08:18→16:45)
[2017-07-11] MEDS: LITHIUM CARBONATE 150 MG CAPSULE PO SCH ×3 (08:18→16:45)
[2017-07-11] MEDS: HALOPERIDOL 5 MG TABLET PO SCH ×3 (08:19→16:45)
[2017-07-11] MEDS: PANTOPRAZOLE 40 MG TABLET.DR PO SCH (08:22)
[2017-07-11 16:41] VITALS: BP 114/52
[2017-07-11 20:00] VITALS: BP 138/61
[2017-07-11] MEDS: ZOLPIDEM TARTRATE 5 MG TABLET PO PRN (21:53)
[2017-07-11] MEDS: ATORVASTATIN 10 MG TABLET PO SCH (21:53)
[2017-07-11] MEDS: INSULIN GLARGINE, 100 UNIT/ML CARTRIDGE SQ SCH (21:59)
[2017-07-11] MEDS: *INSULIN REGULAR(HUMULIN R)HUM 100 UNIT/ML VIAL SQ PRN (22:01)
[2017-07-12] MEDS: BLOOD SUGAR DIAGNOSTIC 1 EACH STRIP VI SCH ×4 (07:28→22:16)
[2017-07-12] MEDS: INSULIN REGULAR, HUMAN 100 UNIT/ML 3 ML VIAL SQ PRN ×3 (07:38→17:46)
[2017-07-12 08:00] VITALS: BP 140/69
[2017-07-12] MEDS: LITHIUM CARBONATE 150 MG CAPSULE PO SCH ×3 (08:01→16:52)
[2017-07-12] MEDS: PANTOPRAZOLE 40 MG TABLET.DR PO SCH (08:01)
[2017-07-12] MEDS: AMLODIPINE BESYLATE 5 MG TABLET PO SCH ×2 (08:02→16:40)
[2017-07-12] MEDS: LOSARTAN POTASSIUM 50 MG TABLET PO SCH (08:02)
[2017-07-12] MEDS: HALOPERIDOL 5 MG TABLET PO SCH ×3 (08:02→16:51)
--- NOTE | 2017-07-12 14:45 | NUR ---
Pt. was complaining by writing that medications will make her sleepy. Dr. Castañeda notified and order [place] tomorrow.
[2017-07-12 16:26] VITALS: BP 131/52
[2017-07-12 16:30] VITALS: BP 120/63
--- NOTE | 2017-07-12 16:52 | NUR ---
Pt. refused the Haldol and Capitanejo and wrote that she will take only the Norvasc and said Haldol and Capitanejo will make her more sleepy. Was explained on the importance and still refusing.
[2017-07-12 20:25] VITALS: BP 128/52
[2017-07-12] MEDS: ATORVASTATIN 10 MG TABLET PO SCH (22:11)
[2017-07-12] MEDS: INSULIN GLARGINE, 100 UNIT/ML CARTRIDGE SQ SCH (22:16)
[2017-07-12] MEDS: ZOLPIDEM TARTRATE 5 MG TABLET PO PRN (22:17)
[2017-07-12] MEDS: *INSULIN REGULAR(HUMULIN R)HUM 100 UNIT/ML VIAL SQ PRN (22:17)
[2017-07-13 08:00] VITALS: BP 133/62
[2017-07-13] MEDS: BLOOD SUGAR DIAGNOSTIC 1 EACH STRIP VI SCH ×4 (08:10→21:43)
[2017-07-13] MEDS: INSULIN REGULAR, HUMAN 100 UNIT/ML 3 ML VIAL SQ PRN ×2 (08:11→17:16)
[2017-07-13] MEDS: PANTOPRAZOLE 40 MG TABLET.DR PO SCH (08:30)
[2017-07-13] MEDS: LITHIUM CARBONATE 150 MG CAPSULE PO SCH ×3 (08:30→16:54)
[2017-07-13] MEDS: HALOPERIDOL 5 MG TABLET PO SCH ×3 (08:31→16:54)
[2017-07-13] MEDS: AMLODIPINE BESYLATE 5 MG TABLET PO SCH ×2 (08:31→16:55)
[2017-07-13] MEDS: LOSARTAN POTASSIUM 50 MG TABLET PO SCH (08:31)
[2017-07-13 16:00] VITALS: BP 134/63
[2017-07-13 20:00] VITALS: BP 138/74
[2017-07-13] MEDS: *INSULIN REGULAR(HUMULIN R)HUM 100 UNIT/ML VIAL SQ PRN (21:44)
[2017-07-13] MEDS: INSULIN GLARGINE, 100 UNIT/ML CARTRIDGE SQ SCH (21:44)
[2017-07-13] MEDS: ATORVASTATIN 10 MG TABLET PO SCH (21:45)
[2017-07-13] MEDS: ZOLPIDEM TARTRATE 5 MG TABLET PO PRN (21:45)
[2017-07-14 08:08] VITALS: BP 141/75
[2017-07-14] MEDS: HALOPERIDOL 5 MG TABLET PO SCH ×3 (08:12→16:25)
[2017-07-14] MEDS: LITHIUM CARBONATE 150 MG CAPSULE PO SCH ×3 (08:12→16:25)
[2017-07-14] MEDS: PANTOPRAZOLE 40 MG TABLET.DR PO SCH (08:12)
[2017-07-14] MEDS: AMLODIPINE BESYLATE 5 MG TABLET PO SCH ×2 (08:13→16:26)
[2017-07-14] MEDS: LOSARTAN POTASSIUM 50 MG TABLET PO SCH (08:13)
[2017-07-14] MEDS: INSULIN REGULAR, HUMAN 100 UNIT/ML 3 ML VIAL SQ PRN ×3 (08:18→18:10)
--- NOTE | 2017-07-14 08:18 | NUR ---
KNA-IN-KBJDE: BLOOD SUGAR IS 175 MG/DL AND GAVE 3 UNITS.
[2017-07-14] MEDS: BLOOD SUGAR DIAGNOSTIC 1 EACH STRIP VI SCH ×4 (08:22→21:14)
[2017-07-14] MEDS: MAGNESIUM HYDROXIDE 30 ML UDC PO PRN (08:51)
--- NOTE | 2017-07-14 08:51 | NUR ---
[id number]: GAVE MILK OF MAGNESIA 30 ML PO DUE TO CONSTIPATION UPON PT REQUEST AND WILL CONTINUE TO MONITOR FOR EFFECTIVENESS OF MEDICATION
--- NOTE | 2017-07-14 12:01 | NUR ---
WPU-BD-FLWVF: BLOOD SUGAR IS 237 MG/DL AND GAVE 6 UNITS
[2017-07-14 15:57] VITALS: BP 126/59
--- NOTE | 2017-07-14 18:10 | NUR ---
[id number]-[id number]: BLOOD SUGAR IS 145 MG/DL AND GAVE 2 UNITS OF REGULAR INSULIN
[2017-07-14 20:06] VITALS: BP 128/66
[2017-07-14] MEDS: ATORVASTATIN 10 MG TABLET PO SCH (21:02)
[2017-07-14] MEDS: ZOLPIDEM TARTRATE 5 MG TABLET PO PRN (21:03)
[2017-07-14] MEDS: *INSULIN REGULAR(HUMULIN R)HUM 100 UNIT/ML VIAL SQ PRN (21:22)
--- NOTE | 2017-07-14 21:23 | NUR ---
Accucheck 189 mg/dl, 3 units regular insulin sc administered. Offered snacks.
[2017-07-14] MEDS: INSULIN GLARGINE, 100 UNIT/ML CARTRIDGE SQ SCH (21:37)
[2017-07-15 08:01] VITALS: BP 135/55
[2017-07-15] MEDS: LITHIUM CARBONATE 150 MG CAPSULE PO SCH ×3 (08:08→16:08)
[2017-07-15] MEDS: HALOPERIDOL 5 MG TABLET PO SCH ×3 (08:08→16:08)
[2017-07-15] MEDS: LOSARTAN POTASSIUM 50 MG TABLET PO SCH (08:09)
[2017-07-15] MEDS: AMLODIPINE BESYLATE 5 MG TABLET PO SCH ×2 (08:09→16:09)
[2017-07-15] MEDS: PANTOPRAZOLE 40 MG TABLET.DR PO SCH (08:09)
[2017-07-15] MEDS: BLOOD SUGAR DIAGNOSTIC 1 EACH STRIP VI SCH ×4 (08:11→22:28)
[2017-07-15] MEDS: INSULIN REGULAR, HUMAN 100 UNIT/ML 3 ML VIAL SQ PRN ×3 (08:13→16:42)
--- NOTE | 2017-07-15 11:28 | NUR ---
RUBY faxed an updated referral to [facility] (fax number: ) to prepare for her discharge tomorrow.
--- NOTE | 2017-07-15 12:28 | NUR ---
EZC-LH-GRDUK BLOOD SUGAR IS 184 MG/DL AND GAVE 3 UNITS OF REGULAR INSULIN
--- NOTE | 2017-07-15 12:37 | NUR ---
[id number]-[id number]: PT REFUSED HALDOL 10 MG PO AND WROTE ON A PAPER, "I DON'T WANT IT." NOTIFIED DR. CAMARGO ABOUT PT REFUSING MEDICATION.
[2017-07-15 16:01] VITALS: BP 143/67
--- NOTE | 2017-07-15 16:42 | NUR ---
XSV-UW-[id number]: BLOOD SUGAR IS 159 MG/DL AND GAVE 2 UNITS OF REGULAR INSULIN
--- NOTE | 2017-07-15 19:30 | NUR ---
GPS RN NOTE, RECEIVED PATIENT AWAKE AND IN BED, NO S/S OR COMPLAINTS OF PAIN AT THIS TIME. PATIENT DISPLAYING NO S/S OF APPARENT DISTRESS AT THIS TIME. PATIENT BREATHING IS UNLABORED WITH EQUAL RISE AND FALL OF THE CHEST. PATIENT ALERT AND ORIENTED X 2 WITH A SPO2 95%. PATIENT IS MED COMPLIANT, DISORGANIZED, DEAF, COOPERATIVE, LAUGHS AT SELF, NEEDS REORIENTATION. PATIENT DENIES SUICIDE IDEATIONS AND HOMICIDAL IDEATIONS AT THIS TIME. PATIENT ASSISTED WITH TURNING AND REPOSITIONING Q2HR AND PRN FOR COMFORT AND CIRCULATION. PATIENT HAS NO NEEDS AT THIS TIME. PATIENT EDUCATED ON THE USE OF THE CALL MCCLAIN. PATIENT BED SIDE RAILS UP X2 FOR SAFETY, BED IS LOCKED AND LOW WILL CONTINUE TO MONITOR AND MAINTAIN AND MAINTAIN SAFETY.
[2017-07-15 19:58] VITALS: BP 116/50
[2017-07-15] MEDS: ZOLPIDEM TARTRATE 5 MG TABLET PO PRN (22:01)
--- NOTE | 2017-07-15 22:01 | NUR ---
GPS RN NOTE, PATIENT HAS A COMPLAINT OF NOT BEING ABLE TO SLEEP AND IS REQUESTING AMBIEN AT THIS TIME. PATIENT VITAL SIGNS ARE STABLE. GAVE AMBIEN 5 MG PO HS ORDERED. WILL REASSESS FOR INSOMNIA AND I WILL CONTINUE TO MONITOR THIS PATIENT.
[2017-07-15] MEDS: ATORVASTATIN 10 MG TABLET PO SCH (22:03)
--- NOTE | 2017-07-15 22:28 | NUR ---
GPS RN NOTE, PERFORMED ACCU CHECK ON PATIENT WITH A BLOOD SUGAR RESULT OF 178. GAVE 3 UNITS OF REGULAR INSULIN AND GAVE 20 UNITS OF LANTUS. GAVE TUNA SANDWICH AND PUDDING FOR SNACK. WILL CONTINUE TO MONITOR THIS PATIENT.
[2017-07-15] MEDS: *INSULIN REGULAR(HUMULIN R)HUM 100 UNIT/ML VIAL SQ PRN (22:30)
[2017-07-15] MEDS: INSULIN GLARGINE, 100 UNIT/ML CARTRIDGE SQ SCH (22:31)
[2017-07-16 08:00] VITALS: BP 123/60
[2017-07-16] MEDS: HALOPERIDOL 5 MG TABLET PO SCH ×2 (08:14→12:16)
[2017-07-16] MEDS: AMLODIPINE BESYLATE 5 MG TABLET PO SCH (08:14)
[2017-07-16 08:15] VITALS: BP 123/60
[2017-07-16] MEDS: PANTOPRAZOLE 40 MG TABLET.DR PO SCH (08:15)
[2017-07-16] MEDS: LITHIUM CARBONATE 150 MG CAPSULE PO SCH ×2 (08:15→12:16)
[2017-07-16] MEDS: LOSARTAN POTASSIUM 50 MG TABLET PO SCH (08:15)
[2017-07-16] MEDS: INSULIN REGULAR, HUMAN 100 UNIT/ML 3 ML VIAL SQ PRN ×2 (08:18→12:14)
[2017-07-16] MEDS: BLOOD SUGAR DIAGNOSTIC 1 EACH STRIP VI SCH ×2 (08:18→12:14)
--- NOTE | 2017-07-16 08:18 | NUR ---
CHG-KL-[id number]: BLOOD SUGAR IS 169 MG/DL AND GAVE 3 UNITS OF REGULAR INSULIN
--- NOTE | 2017-07-16 12:41 | NUR ---
FAW-UP-[id number]: GAVE 241 MG/DL AND GAVE 6 UNITS OF REGULAR INSULIN
[2017-07-16] MEDS: MAGNESIUM HYDROXIDE 30 ML UDC PO PRN (13:08)
--- NOTE | 2017-07-16 13:09 | NUR ---
[id number]-TO-[id number]: GAVE MILK OF MAGNESIA 30 ML PO DUE TO CONSTIPATION UPON PT REQUEST AND WILL CONTINUE TO MONITOR FOR EFFECTIVENESS OF MEDICATION
--- NOTE | 2017-07-16 13:54 | NUR ---
Discharge note: Pt discharged to [facility] [address] [address], via [facility] TRIP #[id number] at 1:00 pm. Pt denied suicidal and homicidal ideations as well as visual and auditory hallucinations. Pts mood and affect was calm and cooperative at discharge. She was agreeable to this placement and the pts brother, Moi Nick , also agreed. Pt will be under the medical care of venetian blind machine operator Dr. Collins and her psychiatrist Dr. Crenshaw.
--- NOTE | 2017-07-16 14:00 | NUR ---
[id number]-[id number]: PT IS 76 YEARS OLD FEMALE DISCHARGE TO [facility] LOCATED AT [address] [place] [address]., [place] [address] IN STABLE CONDITION. COMPLAINT WITH MEDICATIONS, COOPERATIVE WITH TREATMENT PLANS. PT DENIES SI/HI. BEHAVIOR IMPROVED, PSYCHIATRIC TX PLANS MET, MEDICAL TX PLANS DEFERRED FOR CONTINUAL MONITORING. EDUCATED PT ABOUT AFTER CARE PLAN AND COPY PROVIDED. RETURNED PERSONAL BELONGINGS TO PT. MEDICATIONS RECONCILED WITH DR. FLOYD AND DR. CAMARGO. REPORT GIVEN TO AT [facility] NAMED [facility] FOR CONTINUITY OF CARE. PT UNABLE TO SIGN DISCHARGE PAPERWORK. PT REFUSED SKIN ASSESSMENT. PT LEFT THE UNIT VIA AMBULANCE
== END 2017-07-16 14:00 | DRG 885 ==
LOC: ER 13:32 → GPS 15:23
PROVIDERS: ADMIT Psychiatry & Neurology Psychiatry; ATTEND Psychiatry & Neurology Psychiatry
DX: F25.0 Schizoaffective disorder, bipolar type (principal); E11.65 Type 2 diabetes mellitus with hyperglycemia; F03.91 Unspecified dementia, unspecified severity, with behavioral disturbance; E87.1 Hypo-osmolality and hyponatremia; F29 Unspecified psychosis not due to a substance or known physiological condition; E78.5 Hyperlipidemia, unspecified; H91.3 Deaf nonspeaking, not elsewhere classified; I10 Essential (primary) hypertension; J44.9 Chronic obstructive pulmonary disease, unspecified; K59.00 Constipation, unspecified; Z91.14 Patient's other noncompliance with medication regimen; Z79.899 Other long term (current) drug therapy; Z79.82 Long term (current) use of aspirin; Z79.4 Long term (current) use of insulin; R47.89 Other speech disturbances; E78.1 Pure hyperglyceridemia; F41.9 Anxiety disorder, unspecified; E86.0 Dehydration; R79.89 Other specified abnormal findings of blood chemistry; R11.2 Nausea with vomiting, unspecified; T43.595A Adverse effect of other antipsychotics and neuroleptics, initial encounter; Y92.89 Other specified places as the place of occurrence of the external cause
CPT/HCPCS: 36415; 80048-TC; 80053-TC; 80061-TC; 80076-TC; 80164-TC; 80305; 81000-TC; 82962-TC; 84439-TC; 84443-TC; 84481; 85025-TC; 87081-TC; A4606; G0480; J1815; Z7610

== ENCOUNTER 2018-02-03 15:02 | Inpatient (IN) | payer MEDICARE, MEDICAID ==
[~2018-02-03] VITALS: Ht 162.6 cm; Wt 74.4 kg
[~2018-02-03 15:02] MED LIST changes: -AMLO5TAB7 PO; +AMLO5TAB9 PO; -ASPI-1152 PO; -ATOR10TA PO; -BLOO-668 IN; -CITA20TA16 PO; -DOCU250C14 PO; -INSU100V3 SQ; -LOSA50TA21 PO; +LOSA50TA39 PO; +METF-440 PO; -MULT-213 PO; -POLY17PO4 PO; -RISP1TAB27 PO; -ZOLP5TAB8 PO
[2018-02-03] MEDS ORDERED: MAGNESIUM HYDROXIDE 30 ML UDC PO PRN (18:00)
[2018-02-03] MEDS ORDERED: MAG HYDROX/AL HYDROX/SIMETH 30 ML UDC PO PRN (18:00)
[2018-02-03] MEDS ORDERED: LORA1TAB PO (18:17)
[2018-02-03] MEDS ORDERED: ASPI81TA44 PO (18:17)
[2018-02-03] MEDS ORDERED: LOPE2CAP PO (18:17)
[2018-02-03] MEDS ORDERED: OLAN5TAB3 PO (18:17)
[2018-02-03 20:35] VITALS: BP 149/99
[2018-02-03] MEDS ORDERED: DEXTROSE 50%-WATER 50 ML DISP.SYRIN IV PRN (23:00)
[2018-02-04 02:15] VITALS: BP 130/70
[2018-02-04] MEDS: BLOOD SUGAR DIAGNOSTIC 1 EACH STRIP IN SCH ×4 (07:30→21:58)
[2018-02-04 07:35] LABS: ALANINE AMINOTRANSFERASE 20 U/L (12-78); ALKALINE PHOSPHATASE 102 U/L (46-116); ASPARTATE AMINOTRANSFERASE 17 U/L (15-37); BILIRUBIN,TOTAL 0.6 mg/dL (0.2-1.0); CALCIUM, SERUM 9.1 mg/dL (8.5-10.1); CARBON DIOXIDE 27 mmol/L (21-32); CHLORIDE 107 mmol/L (98-107); CREATININE 0.7 mg/dL (0.6-1.3); GLUCOSE 167 mg/dL (74-106); POTASSIUM 4.4 mmol/L (3.5-5.1); SODIUM SERUM 142 mmol/L (136-145); UREA NITROGEN, BLOOD 14 mg/dL (7-18)
[2018-02-04 07:39] LABS: CHOLESTEROL 154 mg/dL (<200); HDL CHOLESTEROL 47 mg/dL (40-60); LDL 81 mg/dL (0-99); TRIGLYCERIDES 185 mg/dL (30-150)
[2018-02-04 08:00] VITALS: BP 154/70
[2018-02-04] MEDS: PIOGLITAZONE HCL 15 MG TABLET PO SCH (08:33)
[2018-02-04] MEDS: PANTOPRAZOLE 40 MG TABLET.DR PO SCH (08:33)
[2018-02-04] MEDS: AMLODIPINE BESYLATE 5 MG TABLET PO SCH ×2 (08:33→18:37)
[2018-02-04] MEDS: ASPIRIN EC 81 MG TABLET.DR PO SCH (08:33)
[2018-02-04] MEDS: LOSARTAN POTASSIUM 50 MG TABLET PO SCH (08:34)
[2018-02-04] MEDS: METFORMIN 500 MG TABLET PO SCH ×2 (08:34→18:36)
[2018-02-04 12:17] LABS: THYROID STIMULATING HORMONE 1.372 uIU/mL (0.358-3.74)
[2018-02-04] MEDS: INSULIN REGULAR, HUMAN 100 UNIT/ML 3 ML VIAL SQ PRN ×2 (12:54→21:55)
[2018-02-04 16:00] VITALS: BP 114/54
[2018-02-04] MEDS: OLANZAPINE 5 MG TABLET PO SCH (18:36)
[2018-02-04] MEDS: LITHIUM CARBONATE (300 MG CAP) 300 MG CAPSULE PO SCH (20:06)
[2018-02-04 20:16] VITALS: BP 165/62
[2018-02-04] MEDS: LORAZEPAM 0.5 MG TABLET PO PRN (22:15)
[2018-02-05 08:00] VITALS: BP 122/77
[2018-02-05] MEDS: LOSARTAN POTASSIUM 50 MG TABLET PO SCH (09:28)
[2018-02-05] MEDS: METFORMIN 500 MG TABLET PO SCH ×2 (09:28→17:16)
[2018-02-05] MEDS: AMLODIPINE BESYLATE 5 MG TABLET PO SCH ×2 (09:29→17:16)
[2018-02-05] MEDS: ASPIRIN EC 81 MG TABLET.DR PO SCH (09:29)
[2018-02-05] MEDS: LITHIUM CARBONATE (300 MG CAP) 300 MG CAPSULE PO SCH ×2 (09:29→21:25)
[2018-02-05] MEDS: BLOOD SUGAR DIAGNOSTIC 1 EACH STRIP IN SCH ×4 (09:29→21:25)
[2018-02-05] MEDS: OLANZAPINE 5 MG TABLET PO SCH ×2 (09:29→17:16)
[2018-02-05] MEDS: PIOGLITAZONE HCL 15 MG TABLET PO SCH (09:29)
[2018-02-05] MEDS: PANTOPRAZOLE 40 MG TABLET.DR PO SCH (09:29)
[2018-02-05] MEDS: INSULIN REGULAR, HUMAN 100 UNIT/ML 3 ML VIAL SQ PRN ×3 (12:16→21:56)
[2018-02-05 16:00] VITALS: BP 144/59
[2018-02-05] MEDS: LORAZEPAM 0.5 MG TABLET PO PRN (19:49)
[2018-02-05 20:06] VITALS: BP 132/69
[2018-02-05] MEDS: MUPIROCIN OINT 2% 22 GM TUBE SCH (21:25)
[2018-02-05] MEDS: ZOLPIDEM TARTRATE 5 MG TABLET PO PRN (21:54)
[2018-02-06] MEDS: BLOOD SUGAR DIAGNOSTIC 1 EACH STRIP IN SCH ×4 (07:38→21:32)
[2018-02-06 08:00] VITALS: BP 133/69
[2018-02-06] MEDS: INSULIN REGULAR, HUMAN 100 UNIT/ML 3 ML VIAL SQ PRN ×4 (08:09→21:33)
[2018-02-06] MEDS: AMLODIPINE BESYLATE 5 MG TABLET PO SCH ×2 (08:15→16:44)
[2018-02-06] MEDS: PANTOPRAZOLE 40 MG TABLET.DR PO SCH (08:15)
[2018-02-06] MEDS: METFORMIN 500 MG TABLET PO SCH ×2 (08:15→16:43)
[2018-02-06] MEDS: PIOGLITAZONE HCL 15 MG TABLET PO SCH (08:15)
[2018-02-06] MEDS: MUPIROCIN OINT 2% 22 GM TUBE SCH ×2 (08:15→21:32)
[2018-02-06] MEDS: OLANZAPINE 5 MG TABLET PO SCH ×2 (08:16→16:44)
[2018-02-06] MEDS: LITHIUM CARBONATE (300 MG CAP) 300 MG CAPSULE PO SCH ×2 (08:16→21:31)
[2018-02-06] MEDS: LOSARTAN POTASSIUM 50 MG TABLET PO SCH (08:16)
[2018-02-06] MEDS: ASPIRIN EC 81 MG TABLET.DR PO SCH (08:16)
[2018-02-06 16:00] VITALS: BP_SYST 133; BP_DIAS 66; BP_DIAS 68
[2018-02-06 20:00] VITALS: BP 150/63
[2018-02-06] MEDS: ZOLPIDEM TARTRATE 5 MG TABLET PO PRN (21:31)
[2018-02-07] MEDS: LORAZEPAM 0.5 MG TABLET PO PRN (01:42)
[2018-02-07] MEDS: BLOOD SUGAR DIAGNOSTIC 1 EACH STRIP IN SCH ×5 (07:30→22:20)
[2018-02-07 08:00] VITALS: BP 120/68
[2018-02-07] MEDS: ASPIRIN EC 81 MG TABLET.DR PO SCH (08:52)
[2018-02-07] MEDS: OLANZAPINE 5 MG TABLET PO SCH ×2 (08:52→16:39)
[2018-02-07] MEDS: LOSARTAN POTASSIUM 50 MG TABLET PO SCH (08:53)
[2018-02-07] MEDS: PANTOPRAZOLE 40 MG TABLET.DR PO SCH (08:53)
[2018-02-07] MEDS: PIOGLITAZONE HCL 15 MG TABLET PO SCH (08:53)
[2018-02-07] MEDS: METFORMIN 500 MG TABLET PO SCH ×2 (08:53→16:39)
[2018-02-07] MEDS: LITHIUM CARBONATE (300 MG CAP) 300 MG CAPSULE PO SCH ×3 (08:53→16:41)
[2018-02-07] MEDS: AMLODIPINE BESYLATE 5 MG TABLET PO SCH ×2 (08:58→16:40)
[2018-02-07] MEDS: MUPIROCIN OINT 2% 22 GM TUBE SCH ×2 (08:58→21:23)
[2018-02-07] MEDS: ACETAMINOPHEN 325 MG TABLET PO PRN (15:00)
[2018-02-07 16:00] VITALS: BP 120/68
[2018-02-07] MEDS: INSULIN REGULAR, HUMAN 100 UNIT/ML 3 ML VIAL SQ PRN (17:20)
[2018-02-07 20:41] VITALS: BP 103/50
[2018-02-08] MEDS: BLOOD SUGAR DIAGNOSTIC 1 EACH STRIP IN SCH ×4 (07:54→21:51)
[2018-02-08 08:00] VITALS: BP 148/62
[2018-02-08] MEDS: OLANZAPINE 5 MG TABLET PO SCH ×2 (08:20→16:42)
[2018-02-08] MEDS: METFORMIN 500 MG TABLET PO SCH ×2 (08:20→16:42)
[2018-02-08] MEDS: LITHIUM CARBONATE (300 MG CAP) 300 MG CAPSULE PO SCH ×3 (08:20→16:42)
[2018-02-08] MEDS: ASPIRIN EC 81 MG TABLET.DR PO SCH (08:20)
[2018-02-08] MEDS: PANTOPRAZOLE 40 MG TABLET.DR PO SCH (08:20)
[2018-02-08] MEDS: PIOGLITAZONE HCL 15 MG TABLET PO SCH (08:20)
[2018-02-08] MEDS: AMLODIPINE BESYLATE 5 MG TABLET PO SCH ×2 (08:21→16:43)
[2018-02-08] MEDS: LOSARTAN POTASSIUM 50 MG TABLET PO SCH (08:21)
[2018-02-08] MEDS: MUPIROCIN OINT 2% 22 GM TUBE SCH ×2 (09:33→21:51)
[2018-02-08] MEDS: INSULIN REGULAR, HUMAN 100 UNIT/ML 3 ML VIAL SQ PRN ×3 (12:20→21:56)
[2018-02-08 16:02] VITALS: BP 113/71
[2018-02-08 20:00] VITALS: BP 152/66
[2018-02-09] MEDS: BLOOD SUGAR DIAGNOSTIC 1 EACH STRIP IN SCH ×4 (07:44→21:46)
[2018-02-09 08:04] VITALS: BP 123/60
[2018-02-09] MEDS: PANTOPRAZOLE 40 MG TABLET.DR PO SCH (08:28)
[2018-02-09] MEDS: OLANZAPINE 5 MG TABLET PO SCH ×2 (08:29→17:10)
[2018-02-09] MEDS: PIOGLITAZONE HCL 15 MG TABLET PO SCH (08:29)
[2018-02-09] MEDS: LITHIUM CARBONATE (300 MG CAP) 300 MG CAPSULE PO SCH ×3 (08:29→17:10)
[2018-02-09] MEDS: METFORMIN 500 MG TABLET PO SCH ×2 (08:30→17:10)
[2018-02-09] MEDS: LOSARTAN POTASSIUM 50 MG TABLET PO SCH (08:30)
[2018-02-09] MEDS: MUPIROCIN OINT 2% 22 GM TUBE SCH ×2 (08:30→20:48)
[2018-02-09] MEDS: ASPIRIN EC 81 MG TABLET.DR PO SCH (08:30)
[2018-02-09] MEDS: AMLODIPINE BESYLATE 5 MG TABLET PO SCH ×2 (08:30→17:00)
[2018-02-09] MEDS: INSULIN REGULAR, HUMAN 100 UNIT/ML 3 ML VIAL SQ PRN ×3 (12:20→21:47)
[2018-02-09 16:26] VITALS: BP 133/75
[2018-02-09 17:11] VITALS: BP 110/53
[2018-02-09 20:00] VITALS: BP 134/56
[2018-02-09] MEDS: ACETAMINOPHEN 325 MG TABLET PO PRN (20:05)
[2018-02-09] MEDS: ZOLPIDEM TARTRATE 5 MG TABLET PO PRN (21:46)
[2018-02-10] MEDS: BLOOD SUGAR DIAGNOSTIC 1 EACH STRIP IN SCH ×4 (07:30→21:48)
[2018-02-10 08:00] VITALS: BP 138/54
[2018-02-10] MEDS: METFORMIN 500 MG TABLET PO SCH ×2 (08:30→17:08)
[2018-02-10] MEDS: PANTOPRAZOLE 40 MG TABLET.DR PO SCH (08:30)
[2018-02-10] MEDS: AMLODIPINE BESYLATE 5 MG TABLET PO SCH ×2 (08:31→17:10)
[2018-02-10] MEDS: OLANZAPINE 5 MG TABLET PO SCH ×2 (08:31→17:17)
[2018-02-10] MEDS: ASPIRIN EC 81 MG TABLET.DR PO SCH (08:31)
[2018-02-10] MEDS: PIOGLITAZONE HCL 15 MG TABLET PO SCH (08:31)
[2018-02-10] MEDS: LOSARTAN POTASSIUM 50 MG TABLET PO SCH (08:31)
[2018-02-10] MEDS: LITHIUM CARBONATE (300 MG CAP) 300 MG CAPSULE PO SCH ×3 (08:31→17:09)
[2018-02-10] MEDS: ACETAMINOPHEN 325 MG TABLET PO PRN (08:36)
[2018-02-10] MEDS: INSULIN REGULAR, HUMAN 100 UNIT/ML 3 ML VIAL SQ PRN ×2 (12:12→21:46)
[2018-02-10] MEDS: MUPIROCIN OINT 2% 22 GM TUBE SCH ×2 (12:15→21:42)
[2018-02-10 16:00] VITALS: BP 105/58
[2018-02-10 20:05] VITALS: BP 110/53
[2018-02-11 08:00] VITALS: BP 149/64
[2018-02-11] MEDS: LITHIUM CARBONATE (300 MG CAP) 300 MG CAPSULE PO SCH ×3 (08:10→17:15)
[2018-02-11] MEDS: METFORMIN 500 MG TABLET PO SCH ×2 (08:10→17:12)
[2018-02-11] MEDS: ASPIRIN EC 81 MG TABLET.DR PO SCH (08:10)
[2018-02-11] MEDS: PANTOPRAZOLE 40 MG TABLET.DR PO SCH (08:10)
[2018-02-11] MEDS: PIOGLITAZONE HCL 15 MG TABLET PO SCH (08:10)
[2018-02-11] MEDS: OLANZAPINE 5 MG TABLET PO SCH ×2 (08:10→17:12)
[2018-02-11] MEDS: MUPIROCIN OINT 2% 22 GM TUBE SCH ×2 (08:11→21:16)
[2018-02-11] MEDS: LOSARTAN POTASSIUM 50 MG TABLET PO SCH (08:11)
[2018-02-11] MEDS: AMLODIPINE BESYLATE 5 MG TABLET PO SCH ×2 (08:11→17:12)
[2018-02-11] MEDS: INSULIN REGULAR, HUMAN 100 UNIT/ML 3 ML VIAL SQ PRN ×3 (08:13→21:31)
[2018-02-11] MEDS: BLOOD SUGAR DIAGNOSTIC 1 EACH STRIP IN SCH ×4 (08:14→21:17)
[2018-02-11 16:07] VITALS: BP 124/73
[2018-02-11 19:58] VITALS: BP 109/51
[2018-02-12] MEDS: BLOOD SUGAR DIAGNOSTIC 1 EACH STRIP IN SCH ×2 (06:36→12:19)
[2018-02-12 08:00] VITALS: BP 125/93
[2018-02-12] MEDS: INSULIN REGULAR, HUMAN 100 UNIT/ML 3 ML VIAL SQ PRN (08:18)
[2018-02-12] MEDS: PANTOPRAZOLE 40 MG TABLET.DR PO SCH (09:16)
[2018-02-12] MEDS: ASPIRIN EC 81 MG TABLET.DR PO SCH (09:16)
[2018-02-12] MEDS: OLANZAPINE 5 MG TABLET PO SCH (09:16)
[2018-02-12] MEDS: LOSARTAN POTASSIUM 50 MG TABLET PO SCH (09:16)
[2018-02-12] MEDS: PIOGLITAZONE HCL 15 MG TABLET PO SCH (09:16)
[2018-02-12] MEDS: LITHIUM CARBONATE (300 MG CAP) 300 MG CAPSULE PO SCH ×2 (09:16→13:00)
[2018-02-12] MEDS: METFORMIN 500 MG TABLET PO SCH (09:16)
[2018-02-12 09:17] VITALS: BP 125/93
[2018-02-12] MEDS: AMLODIPINE BESYLATE 5 MG TABLET PO SCH (09:17)
[2018-02-12] MEDS: MUPIROCIN OINT 2% 22 GM TUBE SCH (09:22)
== END 2018-02-12 14:30 | DRG 885 ==
LOC: GPS 16:48
PROVIDERS: ADMIT Psychiatry & Neurology Psychiatry; ATTEND Psychiatry & Neurology Psychiatry
DX: F25.0 Schizoaffective disorder, bipolar type (principal); E11.65 Type 2 diabetes mellitus with hyperglycemia; E44.0 Moderate protein-calorie malnutrition; F03.90 Unspecified dementia, unspecified severity, without behavioral disturbance, psychotic disturbance, mood disturbance, and anxiety; E78.5 Hyperlipidemia, unspecified; J44.9 Chronic obstructive pulmonary disease, unspecified; Z73.6 Limitation of activities due to disability; E87.6 Hypokalemia; I10 Essential (primary) hypertension; H91.3 Deaf nonspeaking, not elsewhere classified; F32.9 Major depressive disorder, single episode, unspecified; F29 Unspecified psychosis not due to a substance or known physiological condition; Z79.82 Long term (current) use of aspirin; Z79.84 Long term (current) use of oral hypoglycemic drugs; Z79.899 Other long term (current) drug therapy; Z22.322 Carrier or suspected carrier of Methicillin resistant Staphylococcus aureus
CPT/HCPCS: 36415; 80053-TC; 80061-TC; 82962-TC; 84439-TC; 84443-TC; 87081-TC; J1815

== ENCOUNTER 2019-04-13 20:13 | Inpatient (IN) | payer MEDICARE, OTHER ==
[~2019-04-13] VITALS: Ht 165.1 cm; Wt 74.8 kg
[~2019-04-13 20:13] MED LIST changes: +ASPI81TA44 PO; +LOPE2CAP PO
--- NOTE | 2019-04-13 20:35 | NUR ---
PT BIBPA FOR BEING AGRRESSIVE BEHAVIOR-STRIKING OUT, NON COMPLIANT W/ MEDS, TRYING TO LEAVE FACILITY X 2 DAYS. PT IS DEAF AND MUTE. PT ALERT AND AWAKE, COOPERATIVE AT THIS TIME. NO ACUTE DISTRESS NOTED. CONNECTED TO THE BOILER CLEANER AND POX
[2019-04-13 20:58] LABS: BASOPHILS % (AUTO) 0.2 % (0.0-2.0); HEMATOCRIT 36 % (33-45); HEMOGLOBIN 12.4 g/dL (11.5-14.8); LYMPHOCYTES % (AUTO) 10.4 % (20.0-44.0); MEAN CORPUSCULAR HGB CONC 34 g/dl (31.0-36.0); MEAN CORPUSCULAR VOLUME 99 fL (82-100); MONOCYTES % (AUTO) 14.6 % (2.0-12.0); NEUTROPHILS % (AUTO) 74.8 % (43.0-81.0); PLATELET COUNT (AUTO) 231 /CMM (150-450); RED BLOOD CELL COUNT(AUTO) 3.67 MIL/uL (4.0-5.2); WHITE BLOOD COUNT (AUTO) 6.9 K/uL (4.3-11.0)
[2019-04-13 20:59] LABS: LYMPHOCYTES # (AUTO) 0.7 /CMM (0.8-4.8); NEUTROPHILS # (AUTO) 5.1 /CMM (1.8-8.9)
[2019-04-13 21:30] LABS: CALCIUM, SERUM 9.3 mg/dL (8.5-10.1); CARBON DIOXIDE 26 mmol/L (21-32); CHLORIDE 104 mmol/L (98-107); CREATININE 1.7 mg/dL (0.6-1.3); POTASSIUM 4.9 mmol/L (3.5-5.1); SODIUM SERUM 140 mmol/L (136-145); UREA NITROGEN, BLOOD 42 mg/dL (7-18)
[2019-04-13 21:31] LABS: GLUCOSE 444 mg/dL (74-106)
[2019-04-13 21:36] LABS: ALANINE AMINOTRANSFERASE 35 U/L (12-78); ALBUMIN 3.1 g/dL (3.4-5.0); ALCOHOL, BLOOD < 3 mg/dL (0-0); ALKALINE PHOSPHATASE 104 U/L (46-116); ASPARTATE AMINOTRANSFERASE 26 U/L (15-37); BILIRUBIN,DIRECT 0.2 mg/dL (0.0-0.2); TOTAL PROTEIN, SERUM 6.6 g/dL (6.4-8.2)
[2019-04-13 21:44] LABS: SALICYLATE < 2.8 mg/dL (2.8-20.0)
--- NOTE | 2019-04-13 21:50 | NUR ---
PT IS CLEARED FOR PSYCHE EVAL PER DR DEWITT.
[2019-04-13] MEDS ORDERED: IV NS 0.9% 1,000 ML BAG IV ONE (22:00)
[2019-04-13 22:44] LABS: APPEARANCE,URINE Slightly Cloudy (CLEAR); BILIRUBIN,URINE SMALL (NEGATIVE); BLOOD, URINE Trace-lysed Ery/uL (NEGATIVE); COLOR,URINE Yellow (YELLOW); KETONES,URINE Trace (NEGATIVE); LEUKOCYTE ESTERASE ,URINE Small (NEGATIVE); NITRITE, URINE Negative (NEGATIVE); PROTEIN,URINE Trace mg/dl (NEGATIVE); UGLUCOSE 500 MG/DL mg/dL (NEGATIVE); UROBILINOGEN,URINE 0.2 EU/dL (0.2)
[2019-04-14 00:14] LABS: BACTERIA,URINE Many /HPF (None Seen); SQUAMOUS EPITHELIAL CELL,UR Few /HPF (None Seen); WBC,URINE 51-80 /HPF (0-3)
--- NOTE | 2019-04-14 02:37 | NUR ---
Patient is resting comfortably in bed with eyes closed. Easily aroused. VSS
[2019-04-14] MEDS ORDERED: ASCO500T87 PO (04:37)
[2019-04-14] MEDS ORDERED: REPA1TAB7 PO (04:37)
[2019-04-14] MEDS ORDERED: INSU100V3 IJ (04:37)
[2019-04-14] MEDS ORDERED: MULT1TAB62 PO (04:37)
[2019-04-14] MEDS ORDERED: OMEP1CAP25 PO (04:37)
[2019-04-14] MEDS ORDERED: GLIP10TA11 PO (04:37)
[2019-04-14] MEDS ORDERED: LORA-259 PO (04:37)
[2019-04-14] MEDS ORDERED: OLAN7.5T3 PO (04:37)
[2019-04-14] MEDS ORDERED: METF500T20 PO (04:37)
[2019-04-14] MEDS ORDERED: ZINC1CAP2 PO (04:37)
--- NOTE | 2019-04-14 04:38 | NUR ---
REPORT GIVEN TO JESUS KIM
[2019-04-14 05:15] VITALS: BP 131/74
[2019-04-14] MEDS ORDERED: MAG HYDROX/AL HYDROX/SIMETH 30 ML UDC PO PRN (05:30)
[2019-04-14] MEDS ORDERED: ACETAMINOPHEN 325 MG TABLET PO PRN (05:30)
[2019-04-14] MEDS ORDERED: BLOOD SUGAR DIAGNOSTIC 1 EACH STRIP IN ONE (05:30)
[2019-04-14] MEDS ORDERED: MAGNESIUM HYDROXIDE 30 ML UDC PO PRN (05:30)
--- NOTE | 2019-04-14 05:32 | NUR ---
PT TRANSFERRED TO 211 IN STABLE CONDITION
--- NOTE | 2019-04-14 06:45 | NUR ---
DR PIZANO NOTIFIED CHARGE NURSE CALLED DR. PIZANO & RECEIVED NEW PSYCH MED ORDERS. NOTED & CARRIED OUT. WILL CONTINUE TO MONITOR.
--- NOTE | 2019-04-14 06:55 | NUR ---
GPS AUTOMATION QA TESTER NOTES: ADMITTED 78 Y/O FEMALE FROM [facility] TO [facility] TO GPS UNIT ON A 5150. PER 5150 HOLD, PATIENT HAS BEEN AGITATED, TRYING TO ELOPE AT HER FACILITY, YELLING/SCREAMING & HALLUCINATING, CAUSING DISRUPTION TO OTHER RESIDENTS AT THE FACILITY. PT WAS UNMANAGEABLE AT THE FACILITY. UPON FACE TO FACE ASSESSMENT, PATIENT IS A & O X 1, CONFUSED, AGITATED, DISORGANIZED, DISORIENTED, UNCOOPERATIVE, RESTLESS, ANXIOUS, BLUNTED AFFECT, PT. IS DEAF & MUTE, UNABLE TO PROVIDE MORE INFORMATION. ON BED REST DUE TO BOTH LOWER EXTREMITIES WEAKNESS. PT ORDERED. ABLE TO COMMUNICATE WITH WRITING. DENIES SI/HI AT THIS TIME. FULL BODY ASSESSMENT DONE, PHOTOS TAKEN, PLACED IN CHART. NON AMBULATORY/UNSTEADY. HIGH FALL RISK. POOR HISTORIAN DUE TO CONFUSION/FORGETFULNESS. IMPAIRED JUDGEMENT, POOR INSIGHT & IMPULSE CONTROL. PT REFUSED TO SIGN CONSENT FORMS DUE TO BEING CONFUSED/AGITATED. ENVIRONMENTAL SAFETY CHECK DONE. BED ALARM ON. BED IN LOW LOCKED POSITION. ORIENTED TO THE UNIT. CHECKED FOR BELONGING AND CONTRABAND. PROVIDED PT W/ HANDBOOK AND MED GUIDE. PT. IS UNDER CARE OF PSYCHIATRIST DR. PIZANO, KADEN & MEDICAL DR. TOM JOSE NO S/S OF RESP DISTRESS NOTED. VITALS WNL. BREATHING EVEN AND UNLABORED. WILL CONTINUE TO MONITOR Q 15 MINS. FOR SAFETY & BEHAVIOR.
--- NOTE | 2019-04-14 07:29 | NUR ---
GPS RN NOTE CALLED ALVINA PEARCE, SISTER OF THE PATIENT AT [phone] & LEFT A VOICEMAIL ABOUT PATIENT'S ADMISSION AT [facility] UNIT. ALSO LEFT [phone] NUMBER IF FAMILY WOULD LIKE TO GET ANY UPDATES.
--- NOTE | 2019-04-14 07:42 | NUR ---
DR. JOSE MADE AWARE CALLED DR. JOSE & NOTIFIED HIM ABOUT NEW ADMISSION AT GPS UNIT IN ROOM 211-A. MD STATED THAT HE WILL VISIT THE PATIENT. MED RECON NEEDS TO BE DONE. AM RN WAS MADE AWARE TO MD DO MED RECON ONCE HE VISITS THE PATIENT.
--- NOTE | 2019-04-14 07:45 | NUR ---
GPS RN NOTE NOTIFIED AM RN ABOUT PATIENT'S BS BEING 236 MG/DL & INFORMED AM RN TO FOLLOW UP WITH MD ABOUT INSULIN & DIABETES MEDICINES. AM CHARGE NURSE MADE AWARE WELL.
[2019-04-14 08:00] VITALS: BP 144/95
[2019-04-14] MEDS ORDERED: BLOOD SUGAR DIAGNOSTIC 1 EACH STRIP IN SCH (09:30)
[2019-04-14] MEDS ORDERED: DEXTROSE 50%-WATER 50 ML DISP.SYRIN IV PRN (09:30)
--- NOTE | 2019-04-14 09:42 | NUR ---
GPS RN OPENING NOTE: RECEIVED PATIENT IN BEDROOM, RESTING. PATIENT COOPERATIVE WITH ACCUCHECK. CURRENTLY BEING SEEN BY DR JOSE FOR MED RECON. ASKED FOR SLIDING SCALE. PATIENT HAS GARBALED UNINTELLIGABLE SPEECH. PATIENT UNABLE TO COMPREHEND QUESTIONS OR VERBALIZE ANSWERS IN REGARDS TO SI/HI AND VAH. ENVIRONMENTAL CHECKS DONE. SAFETY PRECAUTIONS OBSERVED. WILL CONTINUE TO MONITOR Q15 FOR MOOD, SAFETY AND BEHAVIOR.
[2019-04-14] MEDS: BLOOD SUGAR DIAGNOSTIC 1 EACH STRIP VI SCH ×4 (10:23→22:39)
[2019-04-14] MEDS: CEPHALEXIN MONOHYDRATE 250 MG CAPSULE PO SCH ×2 (11:20→21:57)
[2019-04-14] MEDS: REPAGLINIDE 0.5 MG TABLET PO SCH ×2 (11:20→16:33)
[2019-04-14] MEDS: INSULIN REGULAR, HUMAN 100 UNIT/ML 3 ML VIAL SQ PRN ×2 (12:02→17:41)
--- NOTE | 2019-04-14 14:58 | NUR ---
Facility Contact: SW called [facility] ([phone]) and spoke to Pia who stated that the pt can return to their facility when she is cleared to be discharged.
--- NOTE | 2019-04-14 14:59 | NUR ---
Family Contact: SW called the pts brother, Moi ([phone]), and left a voicemail stating that the SW would like to discuss the pts initial treatment plan and discharge plan.
--- NOTE | 2019-04-14 15:44 | NUR ---
Initial Discharge Plan: Pt currently resides at [facility] located at [address] [place] [address]; ([phone]). Per pt, she would like to return. RUBY will work with the pt and the MD regarding appropriate discharge planning. SW will form a safe and proper discharge plan.
--- NOTE | 2019-04-14 15:54 | NUR ---
Group Note: SW encouraged pt to attend group therapy on 04/14/19 at 2pm discussing reality testing regarding their admission. Pt is not appropriate for group at this time. Pt presented with a labile mood and has been shouting throughout the day. Pt is also deaf and can only communicate through writing. Pt presented in a gerichair in the activities room. SW encouraged pt to regulate mood via individual/group therapy, informed the pt that she is on a hold due to her behavior at the facility, and informed the pt to be complaint with medications.
[2019-04-14 16:00] VITALS: BP 125/57
[2019-04-14] MEDS: OLANZAPINE 5 MG TABLET PO SCH (16:17)
[2019-04-14] MEDS: glipiZIDE 5 MG TABLET PO SCH (16:17)
[2019-04-14] MEDS: METFORMIN 500 MG TABLET PO SCH (16:17)
[2019-04-14] MEDS: GUAIFENESIN 300 MG/15 ML UDC PO PRN (16:51)
[2019-04-14 20:14] VITALS: BP 122/58
[2019-04-14] MEDS: DOCUSATE SODIUM 100 MG CAPSULE PO SCH (21:58)
[2019-04-14] MEDS: INSULIN GLARGINE, 100 UNIT/ML CARTRIDGE SQ SCH (22:00)
[2019-04-14] MEDS: ZOLPIDEM TARTRATE 5 MG TABLET PO PRN (22:00)
[2019-04-14] MEDS ORDERED: DOCUSATE SODIUM LIQ 100 MG/10 ML UDC NG SCH (22:00)
--- NOTE | 2019-04-14 22:49 | NUR ---
GPS RN NOTE 220 ACCU CHEK DONE, BS 147. PT REFUSED LANTUS AND REGULAR INSULIN ORDERED. USING SIGN LANGUAGE PT FEELS HER BLOOD SUGAR HAS GONE DOWN WHEN COMPARED TO PREVIOUS LEVELS, THEREFORE REFUSED. PT CALM, NO S/S OF ANY DISTRESS. SKILLED NURSE WILL CONTINUE TO MONITOR PT.
[2019-04-15] MEDS: BLOOD SUGAR DIAGNOSTIC 1 EACH STRIP VI SCH ×4 (07:31→22:40)
[2019-04-15 08:00] VITALS: BP 135/85
[2019-04-15 08:02] LABS: ALBUMIN 2.8 g/dL (3.4-5.0); BILIRUBIN,TOTAL 0.9 mg/dL (0.2-1.0); CALCIUM, SERUM 8.6 mg/dL (8.5-10.1); CREATININE 0.8 mg/dL (0.6-1.3); POTASSIUM 4.4 mmol/L (3.5-5.1)
[2019-04-15 08:10] LABS: THYROID STIMULATING HORMONE 0.15 uIU/mL (0.358-3.74)
[2019-04-15] MEDS: METFORMIN 500 MG TABLET PO SCH ×2 (08:20→16:40)
[2019-04-15] MEDS: CEPHALEXIN MONOHYDRATE 250 MG CAPSULE PO SCH ×2 (08:20→21:50)
[2019-04-15] MEDS: glipiZIDE 5 MG TABLET PO SCH ×2 (08:20→16:40)
[2019-04-15] MEDS: GUAIFENESIN 300 MG/15 ML UDC PO PRN ×2 (08:20→21:51)
[2019-04-15] MEDS: ASPIRIN EC 81 MG TABLET.DR PO SCH (08:20)
[2019-04-15] MEDS: PANTOPRAZOLE 40 MG TABLET.DR PO SCH (08:21)
[2019-04-15] MEDS: REPAGLINIDE 0.5 MG TABLET PO SCH ×3 (08:21→16:40)
[2019-04-15] MEDS: OLANZAPINE 5 MG TABLET PO SCH ×2 (08:21→16:40)
--- NOTE | 2019-04-15 09:27 | NUR ---
GPS RN NOTE: INSULIN ADMINISTRATION BG 137 PATIENT REFUSED 2 UNITS OF INSULIN. DESPITE EDUCATION PATIENT CONTINUED TO REFUSE.
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
[2019-04-15] MEDS: INSULIN REGULAR, HUMAN 100 UNIT/ML 3 ML VIAL SQ PRN ×2 (11:50→22:54)
--- NOTE | 2019-04-15 15:02 | NUR ---
Group Note: SW encouraged pt to attend group therapy on 04/15/19 at 2pm discussing reality testing regarding discharge planning. Pt is not appropriate for group at this time. Pt presented with a labile mood and has been shouting throughout the day. Pt is also deaf and can only communicate through writing. Pt was present at the table but was unable to participate effectively and was making verbal noises throughout the duration of the group.
[2019-04-15 16:00] VITALS: BP 133/72
[2019-04-15 20:00] VITALS: BP 160/76
[2019-04-15] MEDS: ZOLPIDEM TARTRATE 5 MG TABLET PO PRN (21:50)
[2019-04-15] MEDS: DOCUSATE SODIUM 100 MG CAPSULE PO SCH (21:51)
[2019-04-15] MEDS: INSULIN GLARGINE, 100 UNIT/ML CARTRIDGE SQ SCH (22:52)
[2019-04-16] MEDS: BLOOD SUGAR DIAGNOSTIC 1 EACH STRIP VI SCH ×4 (07:53→21:24)
[2019-04-16 08:00] VITALS: BP 161/93
[2019-04-16] MEDS: ASPIRIN EC 81 MG TABLET.DR PO SCH (08:07)
[2019-04-16] MEDS: PANTOPRAZOLE 40 MG TABLET.DR PO SCH (08:07)
[2019-04-16] MEDS: glipiZIDE 5 MG TABLET PO SCH ×2 (08:07→16:18)
[2019-04-16] MEDS: OLANZAPINE 5 MG TABLET PO SCH ×2 (08:07→16:19)
[2019-04-16] MEDS: CEPHALEXIN MONOHYDRATE 250 MG CAPSULE PO SCH (08:07)
[2019-04-16] MEDS: METFORMIN 500 MG TABLET PO SCH ×2 (08:07→16:19)
[2019-04-16] MEDS: REPAGLINIDE 0.5 MG TABLET PO SCH ×3 (08:07→16:59)
[2019-04-16 16:00] VITALS: BP 157/85
--- NOTE | 2019-04-16 17:00 | NUR ---
GPS/RN - Notes Patient from Rm 211-1 and was moved to Rm 216-1 for roommate compatibility. All belongings transferred to the room.
[2019-04-16] MEDS: AMOX/CLAVULANATE 875 MG TABLET PO SCH (17:40)
[2019-04-16 20:37] VITALS: BP 118/73
[2019-04-16] MEDS ORDERED: CEPHALEXIN MONOHYDRATE 250 MG CAPSULE PO SCH (21:00)
[2019-04-16] MEDS: DOCUSATE SODIUM 100 MG CAPSULE PO SCH (21:07)
[2019-04-16] MEDS: INSULIN GLARGINE, 100 UNIT/ML CARTRIDGE SQ SCH (21:29)
[2019-04-16] MEDS: *INSULIN REGULAR(HUMULIN R)HUM 100 UNIT/ML VIAL SQ PRN (21:32)
[2019-04-16] MEDS: ZOLPIDEM TARTRATE 5 MG TABLET PO PRN (21:38)
--- NOTE | 2019-04-16 21:40 | NUR ---
GPS RN NOTES: INSOMNIA PT UNABLE TO SLEEP. OFFERED AMBIEN 5MG PO PRN ORDERED. PT AGREED AND TOLERATED MEDICATION WELL. CONTINUE TO MONITOR.
--- NOTE | 2019-04-16 21:48 | NUR ---
GPS RN NOTES: IN DAY ROOM PLACED PT IN DAY ROOM DUE TO DISRUPTIVE BEHAVIOR. PT YELLING AT STAFF, UNABLE TO COMPREHEND WHAT THE PT IS SAYING. PT IS EASILY AGITATED WHEN ASKED A QUESTION AND IRRITABLE. PT IS NOT RE-DIRECTABLE AND REFUSES TO LISTEN TO STAFF. STAFF MEMBER WITH PT AT THE DAY ROOM. WILL CONTINUE TO MONITOR PT.
[2019-04-17] MEDS: REPAGLINIDE 0.5 MG TABLET PO SCH ×3 (07:30→18:01)
[2019-04-17] MEDS: BLOOD SUGAR DIAGNOSTIC 1 EACH STRIP VI SCH ×4 (08:04→21:49)
[2019-04-17] MEDS: PANTOPRAZOLE 40 MG TABLET.DR PO SCH (08:25)
[2019-04-17] MEDS: AMOX/CLAVULANATE 875 MG TABLET PO SCH ×2 (08:25→20:55)
[2019-04-17] MEDS: ASPIRIN EC 81 MG TABLET.DR PO SCH (08:25)
[2019-04-17] MEDS: LORAZEPAM 1 MG TABLET PO PRN (08:25)
[2019-04-17] MEDS: glipiZIDE 5 MG TABLET PO SCH ×2 (08:25→16:39)
[2019-04-17] MEDS: OLANZAPINE 5 MG TABLET PO SCH ×2 (08:26→16:39)
[2019-04-17] MEDS: METFORMIN 500 MG TABLET PO SCH ×2 (08:26→16:39)
--- NOTE | 2019-04-17 08:36 | NUR ---
GPS/RN-NOTES NOTED PATIENT WITH DISRUPTIVE BEHAVIOR SCREAMING AND YELLING TO STAFF AND OTHER PATIENT. BANGING CHAIRS IN THE DAY ROOM. REDIRECTED PATIENT AND ATIVAN 1MG P.O GIVEN PRN ORDER. WILL CONT. MONITORING FOR SAFETY AND BEHAVIOR.
[2019-04-17 09:06] VITALS: BP 122/72
--- NOTE | 2019-04-17 09:30 | NUR ---
GPS/RN-NOTES PATIENT WATCHING TV IN THE DAY ROOM,CALM NO ACUTE DISTRESS NOTED.
--- NOTE | 2019-04-17 12:10 | NUR ---
GPS/RN-NOTES PRANDIN 1MG P.O NOT ADMINISTER AT THE TIME SCHEDULE DUE TO PER PHARMACIES( [facility]) THEY WILL FILL UP THE PYXES WHEN THE MEDICATION AVAILABLE . STILL AWAITING FOR THE REFILL.
[2019-04-17] MEDS: INSULIN REGULAR, HUMAN 100 UNIT/ML 3 ML VIAL SQ PRN ×2 (12:20→18:03)
[2019-04-17 16:09] VITALS: BP 139/69
--- NOTE | 2019-04-17 19:20 | NUR ---
RN OPENING NOTES: PT. RESTING IN BED ,CONFUSED PARANOID , HYPERVERBAL ,DISORGNIZED EASILY AGITATED , ALL NEEDS ATTENDED ANTICIPATED, ENCOURAGED PT. TO VERBALIZED ANY FEELING , NO ACUTE DISTRESS NOTED , NEEDS FREQUENTLY REDIRECTIONS , REALITY ORIENTIONS PROVIDED, WILL CONTINUITY WITH CARE.
[2019-04-17 20:00] VITALS: BP 139/75
[2019-04-17] MEDS: DOCUSATE SODIUM 100 MG CAPSULE PO SCH (21:09)
[2019-04-17] MEDS: *INSULIN REGULAR(HUMULIN R)HUM 100 UNIT/ML VIAL SQ PRN (21:47)
[2019-04-17] MEDS: INSULIN GLARGINE, 100 UNIT/ML CARTRIDGE SQ SCH (21:49)
[2019-04-17] MEDS: GUAIFENESIN 300 MG/15 ML UDC PO PRN (23:47)
[2019-04-18] MEDS: BLOOD SUGAR DIAGNOSTIC 1 EACH STRIP VI SCH ×4 (07:34→22:21)
--- NOTE | 2019-04-18 07:35 | NUR ---
RN NOTE: ACCUCHECK 93, NO INSULIN COVERAGE GIVEN
[2019-04-18] MEDS: glipiZIDE 5 MG TABLET PO SCH ×2 (07:47→16:20)
[2019-04-18] MEDS: PANTOPRAZOLE 40 MG TABLET.DR PO SCH (07:47)
[2019-04-18] MEDS: REPAGLINIDE 0.5 MG TABLET PO SCH ×3 (07:47→17:32)
[2019-04-18 08:00] VITALS: BP 166/91
[2019-04-18] MEDS: ASPIRIN EC 81 MG TABLET.DR PO SCH (08:26)
[2019-04-18] MEDS: AMOX/CLAVULANATE 875 MG TABLET PO SCH ×2 (08:26→21:04)
[2019-04-18] MEDS: OLANZAPINE 5 MG TABLET PO SCH ×2 (08:26→16:20)
[2019-04-18] MEDS: METFORMIN 500 MG TABLET PO SCH ×2 (08:26→16:20)
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
[2019-04-18] MEDS: INSULIN REGULAR, HUMAN 100 UNIT/ML 3 ML VIAL SQ PRN ×2 (11:44→17:29)
[2019-04-18] MEDS: LORAZEPAM 1 MG TABLET PO PRN (15:37)
--- NOTE | 2019-04-18 15:37 | NUR ---
RN NOTE: AGITATION PT EXHIBITING INCREASED AGITATION AND ANXIETY. YELLING AND SCREAMING IN DAY ROOM. RESTLESS AND ANGRY. MEDICATED WITH ATIVAN 1MG PO PRN.
[2019-04-18 16:00] VITALS: BP 137/79
--- NOTE | 2019-04-18 19:20 | NUR ---
RN OPENING NOTES: PT.WAS SITTING IN DAY ROOM ,CONFUSED PARANOID , HYPERVERBAL ,DISORGNIZED EASILY AGITATED , ALL NEEDS ATTENDED ANTICIPATED, ENCOURAGED PT. TO VERBALIZED ANY FEELING , NO ACUTE DISTRESS NOTED , NEEDS FREQUENTLY REDIRECTIONS , REALITY ORIENTIONS PROVIDED, WILL CONTINUITY WITH CARE.
[2019-04-18 20:00] VITALS: BP 125/70
[2019-04-18] MEDS: DOCUSATE SODIUM 100 MG CAPSULE PO SCH (21:04)
[2019-04-18] MEDS: INSULIN GLARGINE, 100 UNIT/ML CARTRIDGE SQ SCH (22:00)
--- NOTE | 2019-04-19 03:55 | NUR ---
GPS RN NOTE, PATIENT HAS A COMPLAINT OF INDIGESTION AND IS REQUESTING MAALOX AT THIS TIME. PATIENT VITAL SIGNS AR STABLE. GAVE MAALOX 30 ML PO Q4HR PRN ORDERED. WILL CONTINUE TO MONITOR THIS PATIENT.
[2019-04-19 07:35] LABS: BASOPHILS % (AUTO) 0.3 % (0.0-2.0); HEMATOCRIT 32 % (33-45); HEMOGLOBIN 11.1 g/dL (11.5-14.8); LYMPHOCYTES # (AUTO) 1.4 /CMM (0.8-4.8); LYMPHOCYTES % (AUTO) 21.1 % (20.0-44.0); MEAN CORPUSCULAR HGB CONC 34 g/dl (31.0-36.0); MEAN CORPUSCULAR VOLUME 98 fL (82-100); MONOCYTES # (AUTO) 0.7 /CMM (0.1-1.30); MONOCYTES % (AUTO) 10.6 % (2.0-12.0); NEUTROPHILS # (AUTO) 4.5 /CMM (1.8-8.9); PLATELET COUNT (AUTO) 236 /CMM (150-450); WHITE BLOOD COUNT (AUTO) 6.7 K/uL (4.3-11.0)
[2019-04-19] MEDS: BLOOD SUGAR DIAGNOSTIC 1 EACH STRIP VI SCH ×4 (07:39→21:17)
[2019-04-19] MEDS: INSULIN REGULAR, HUMAN 100 UNIT/ML 3 ML VIAL SQ PRN ×3 (07:40→17:22)
--- NOTE | 2019-04-19 07:45 | NUR ---
RN OPENING NOTE: RECEIVED PT LYING IN BED. NO ACUTE DISTRESS NOTED.VSS, AFEBRILE. PT A+OX2 WITH GARBLED SPEECH. DIFFICULT TO COMMUNICATE NEEDS. PT EASILY AGITATED AND ANXIOUS. NEEDS FREQUENT REDIRECTION. PT AMBULATORY AND VISIBLE ON THE UNIT. PT COMPLIANT WITH MEDICATION ADMINISTRATION AND PLAN OF CARE. EDUCATED PT ON US OF THE CALL MCCLAIN. BED IS IN LOW AND LOCKED POSITION WITH SIDE RAILS UP X2 FOR SAFETY.WILL CONT TO MONITOR PT FOR SAFETY AND BEHAVIOR PER GPS PROTOCOL
[2019-04-19] MEDS: glipiZIDE 5 MG TABLET PO SCH ×2 (07:56→16:59)
[2019-04-19] MEDS: GUAIFENESIN 300 MG/15 ML UDC PO PRN ×2 (07:56→13:35)
[2019-04-19] MEDS: REPAGLINIDE 0.5 MG TABLET PO SCH ×3 (07:57→17:00)
[2019-04-19] MEDS: PANTOPRAZOLE 40 MG TABLET.DR PO SCH (07:57)
--- NOTE | 2019-04-19 07:57 | NUR ---
RN NOTE': PT MEDICATED WITH ROBITUSSIN FOR DRY, NON-PRODUCTIVE COUGH.
[2019-04-19 08:00] VITALS: BP 145/87
[2019-04-19] MEDS: OLANZAPINE 5 MG TABLET PO SCH ×2 (08:00→16:59)
[2019-04-19] MEDS: AMOX/CLAVULANATE 875 MG TABLET PO SCH ×2 (08:00→21:08)
[2019-04-19] MEDS: ASPIRIN EC 81 MG TABLET.DR PO SCH (08:00)
[2019-04-19] MEDS: METFORMIN 500 MG TABLET PO SCH ×2 (08:00→16:59)
[2019-04-19 08:02] LABS: CALCIUM, SERUM 8.8 mg/dL (8.5-10.1); CREATININE 0.9 mg/dL (0.6-1.3); POTASSIUM 4.7 mmol/L (3.5-5.1)
[2019-04-19 08:17] LABS: THYROID STIMULATING HORMONE 0.524 uIU/mL (0.358-3.74)
[2019-04-19] MEDS: LORAZEPAM 1 MG TABLET PO PRN ×2 (10:52→17:00)
--- NOTE | 2019-04-19 10:53 | NUR ---
RN NOTE AGITATION: PT EXHIBITING INCREASED AGITATION. HYPERVERBAL AND YELLING IN THE DAY ROOM. NOT ABLE TO BE REDIRECTED. MEDICATED WITH ATIVAN 1MG PO PRN
--- NOTE | 2019-04-19 13:35 | NUR ---
RN NOTE: PT WITH DRY, NON-PRODUCTIVE COUGH. MEDICATED WITH ROBITUSSIN PRN.
[2019-04-19 16:11] VITALS: BP 132/52
--- NOTE | 2019-04-19 17:00 | NUR ---
RN NOTE: PT EXHIBITING INCREASED AGITATION. YELLING AT OTHER PATIENTS. INCREASED PARANOIA. MED WITH ATIVAN 1MG PO PRN.
[2019-04-19 20:12] VITALS: BP 113/68
[2019-04-19] MEDS: DOCUSATE SODIUM 100 MG CAPSULE PO SCH (21:08)
[2019-04-19] MEDS: INSULIN GLARGINE, 100 UNIT/ML CARTRIDGE SQ SCH (21:19)
[2019-04-19] MEDS: *INSULIN REGULAR(HUMULIN R)HUM 100 UNIT/ML VIAL SQ PRN (21:20)
--- NOTE | 2019-04-19 21:23 | NUR ---
GPS RN NOTES: REFUSED INSULIN CHECKED PT BLOOD SUGAR WITH RESULTS 106. NO INSULIN GIVEN PER SLIDING SCALE ORDER. OFFERED INSULIN LANTUS THAT IS DUE AT 2200. PT REFUSED. EXPLAIN RISKS AND BENEFITS. PT STILL REFUSED X3. CONTINUE TO MONITOR.
[2019-04-19] MEDS: ZOLPIDEM TARTRATE 5 MG TABLET PO PRN (22:24)
--- NOTE | 2019-04-20 00:52 | NUR ---
GPS RN NOTES: REFUSED WEEKLY SKIN ASSESSMENT PT REFUSED WEEKLY BODY AND SKIN ASSESSMENT PICTURE. PT YELLING AND HARD TO COMPREHEND. EXPLAIN RISKS AND BENEFITS. PT STILL REFUSED X3. CONTINUE TO MONITOR.
[2019-04-20] MEDS: GUAIFENESIN 300 MG/15 ML UDC PO PRN ×2 (05:33→12:57)
--- NOTE | 2019-04-20 05:34 | NUR ---
GPS RN NOTES: C/O COUGH UPON DOING ROUNDS PT COUGHING IN BED. NO S/S OF RESP DISTRESS. BREATHING EVEN AND UNLABORED. OFFERED ROBITUSSIN PRN ORDERED. PT AGREED AND TOLERATED MEDICATION WELL. CONTINUE TO MONITOR.
--- NOTE | 2019-04-20 07:00 | NUR ---
RN NOTE: ACCUCHECK 185, 3 UNITS COVERAGE PER SCALE.
[2019-04-20] MEDS: BLOOD SUGAR DIAGNOSTIC 1 EACH STRIP VI SCH ×4 (07:41→21:35)
[2019-04-20] MEDS: INSULIN REGULAR, HUMAN 100 UNIT/ML 3 ML VIAL SQ PRN ×3 (07:43→17:30)
[2019-04-20] MEDS: REPAGLINIDE 0.5 MG TABLET PO SCH ×3 (07:59→17:18)
[2019-04-20] MEDS: glipiZIDE 5 MG TABLET PO SCH ×2 (07:59→17:18)
[2019-04-20] MEDS: PANTOPRAZOLE 40 MG TABLET.DR PO SCH (07:59)
[2019-04-20 08:00] VITALS: BP 143/82
[2019-04-20] MEDS: LORAZEPAM 1 MG TABLET PO PRN (08:37)
[2019-04-20] MEDS: METFORMIN 500 MG TABLET PO SCH ×2 (08:37→17:18)
[2019-04-20] MEDS: ASPIRIN EC 81 MG TABLET.DR PO SCH (08:37)
[2019-04-20] MEDS: AMOX/CLAVULANATE 875 MG TABLET PO SCH ×2 (08:37→21:12)
--- NOTE | 2019-04-20 08:37 | NUR ---
RN NOTE: AGITATION PT VISIBLY AGITATED AND PARANOID. PT WEARING MASK AND WASHING HANDS MULTIPLE TIMES. MEDICATED WITH ATIVAN 1MG PRN.
[2019-04-20] MEDS: OLANZAPINE 5 MG TABLET PO SCH ×2 (08:39→17:18)
--- NOTE | 2019-04-20 08:40 | NUR ---
RN NOTE: RECEIVED PT SITTING IN ROOM. NO ACUTE DISTRESS NOTED.VSS, AFEBRLE. NO RESPIRATORY DISTRESS NOTED. A+OX2. ABLE TO MAKE NEEDS KNOWN WITH GARBLED SPEECH AND WRITING. PT C/O INCREASED ANXIETY. MEDICATED WITH ATIVAN 1MG PO PRN. PT DENIES SI/HI/VH/AH AT PRESENT TIME. PT IS PARANOID WITH MASK ON. 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 PT IS NEEDY WITH MULTIPLE REQUESTS. PT COMPLIANT WITH MEDICATION ADMINISTRATION AND PLAN OF CARE. WILL CONT TO MONITOR PT FOR SAFETY AND BEHAVIOR PER GPS PROTOCOL
--- NOTE | 2019-04-20 12:58 | NUR ---
RN NOTE: PT C/O COUGH. REQUESTING ROBITUSSIN. ROBITUSSIN PRN GIVEN.
[2019-04-20 16:00] VITALS: BP 141/65
--- NOTE | 2019-04-20 16:09 | NUR ---
Group Note: SW encouraged pt to attend group therapy on 04/20/19 at 2pm discussing discharge planning. Pt is not appropriate for group at this time. Pt presented with a labile mood and has been shouting throughout the day. Pt is also deaf and can only communicate through writing. Pt was present at the table but was unable to participate effectively and was making verbal noises throughout the duration of the group.
[2019-04-20 20:00] VITALS: BP 138/81
[2019-04-20 20:06] VITALS: BP 138/81
[2019-04-20] MEDS: DOCUSATE SODIUM 100 MG CAPSULE PO SCH (21:12)
[2019-04-20] MEDS: INSULIN GLARGINE, 100 UNIT/ML CARTRIDGE SQ SCH (21:43)
[2019-04-20] MEDS: *INSULIN REGULAR(HUMULIN R)HUM 100 UNIT/ML VIAL SQ PRN (21:46)
[2019-04-21] MEDS: BLOOD SUGAR DIAGNOSTIC 1 EACH STRIP VI SCH ×4 (07:32→21:14)
[2019-04-21] MEDS: INSULIN REGULAR, HUMAN 100 UNIT/ML 3 ML VIAL SQ PRN ×3 (07:36→17:14)
--- NOTE | 2019-04-21 07:43 | NUR ---
RN OPENING NOTE: RECEIVED PT AMBULATING IN HALLWAY. PT TACHYCARDIC WITH PULSE 110. PT IS NOT SYMPTOMATIC. PT A+OX2. PT INCONTINENT WITH DIAPER. PT IS CALM AND COOPERATIVE. PT COMMUNICATED WITH WRITTEN COMMUNICATION AND LIP READING. PT IS AMBULATORY AND VISIBLE ON THE UNIT. GOOD JUDGEMENT AND INSIGHT. PT DENIES SI/HI/AH/VH AT PRESENT TIME. PT COMPLIANT WITH MEDICATIN ADMINISTRATION AND PLAN OF CARE. WILL CONT TO MONITOR PT FOR SAFETY AND BEHAVIOR PER GPS PROTOCOL.
[2019-04-21 08:00] VITALS: BP 115/63
[2019-04-21] MEDS: glipiZIDE 5 MG TABLET PO SCH ×2 (08:04→16:33)
[2019-04-21] MEDS: ASPIRIN EC 81 MG TABLET.DR PO SCH (08:04)
[2019-04-21] MEDS: OLANZAPINE 5 MG TABLET PO SCH (08:04)
[2019-04-21] MEDS: REPAGLINIDE 0.5 MG TABLET PO SCH ×3 (08:04→16:33)
[2019-04-21] MEDS: AMOX/CLAVULANATE 875 MG TABLET PO SCH ×2 (08:05→21:09)
[2019-04-21] MEDS: PANTOPRAZOLE 40 MG TABLET.DR PO SCH (08:05)
[2019-04-21] MEDS: METFORMIN 500 MG TABLET PO SCH ×2 (08:05→16:33)
[2019-04-21] MEDS: METOPROLOL TARTRATE 25 MG TABLET PO SCH ×2 (10:42→21:10)
[2019-04-21] MEDS: GUAIFENESIN 300 MG/15 ML UDC PO PRN ×2 (14:34→18:35)
--- NOTE | 2019-04-21 14:35 | NUR ---
RN NOTE: PT COUGHING. MEDICATED WITH ROBITUSSIN PRN.
[2019-04-21 16:00] VITALS: BP 119/65
--- NOTE | 2019-04-21 16:15 | NUR ---
Group Note: SW encouraged pt to attend group therapy on 04/21/19 at 2pm discussing reality testing regarding discharge planning. Pt is not appropriate for group at this time. Pt presented with a labile mood and has been shouting throughout the day. Pt is also deaf and can only communicate through writing. Pt was present at the table but was unable to participate effectively and was making verbal noises throughout the duration of the group.
--- NOTE | 2019-04-21 16:15 | NUR ---
Discussion with the MD: RUBY stated that the pt stated that she would not like to return to [facility] and the MD stated that he would work on getting the pt placed in a SNF. RUBY recommended [facility] [place].
--- NOTE | 2019-04-21 18:35 | NUR ---
RN NOTE: PT COUGHING. MED WITH ROBITUSSIN PRN.
[2019-04-21 20:38] VITALS: BP 142/89
[2019-04-21] MEDS: DOCUSATE SODIUM 100 MG CAPSULE PO SCH (21:09)
[2019-04-21] MEDS: INSULIN GLARGINE, 100 UNIT/ML CARTRIDGE SQ SCH (21:13)
[2019-04-21] MEDS: *INSULIN REGULAR(HUMULIN R)HUM 100 UNIT/ML VIAL SQ PRN (21:26)
--- NOTE | 2019-04-21 21:27 | NUR ---
GPS RN NOTES: INSULIN NON ADMINISTER PT BLOOD SUGAR 110. ACCORDING TO SLIDING SCALE, NO INSULIN REQUIRED DUE TO BLOOD SUGAR WITHIN RANGE. CONTINUE TO MONITOR.
[2019-04-21] MEDS: ZOLPIDEM TARTRATE 5 MG TABLET PO PRN (23:09)
--- NOTE | 2019-04-21 23:15 | NUR ---
GPS RN NOTES: INSOMNIA UPON DOING ROUNDS, PT UNABLE TO SLEEP. OFFERED AMBIEN 5MG PO PRN ORDERED. PT AGREED AND TOLERATED MEDICATION WELL. CONTINUE TO MONITOR.
[2019-04-22] MEDS: BLOOD SUGAR DIAGNOSTIC 1 EACH STRIP VI SCH ×4 (07:44→21:41)
[2019-04-22 08:00] VITALS: BP 146/64
[2019-04-22] MEDS: PANTOPRAZOLE 40 MG TABLET.DR PO SCH (08:06)
[2019-04-22] MEDS: OLANZAPINE 5 MG TABLET PO SCH ×3 (08:06→16:25)
[2019-04-22] MEDS: ASPIRIN EC 81 MG TABLET.DR PO SCH (08:06)
[2019-04-22] MEDS: AMOX/CLAVULANATE 875 MG TABLET PO SCH ×2 (08:06→21:39)
[2019-04-22] MEDS: glipiZIDE 5 MG TABLET PO SCH ×3 (08:07→16:25)
[2019-04-22] MEDS: REPAGLINIDE 0.5 MG TABLET PO SCH ×3 (08:07→17:00)
[2019-04-22] MEDS: METFORMIN 500 MG TABLET PO SCH ×2 (08:07→16:25)
[2019-04-22] MEDS: METOPROLOL TARTRATE 25 MG TABLET PO SCH ×2 (08:08→21:39)
[2019-04-22] MEDS: INSULIN REGULAR, HUMAN 100 UNIT/ML 3 ML VIAL SQ PRN (12:08)
[2019-04-22] MEDS: LORAZEPAM 1 MG TABLET PO PRN (13:34)
--- NOTE | 2019-04-22 13:36 | NUR ---
GPS R/N-NOTES NOTED PATIENT AGITATED SCREAMING AND YELLING WITH OTHER PATIENT, REDIRECTED TO THE DAY ROOM AND OFFERED ATIVAN 1MG P.O PRN ORDER. WILL CONT. MONITORING FOR SAFETY AND BEHAVIOR.
--- NOTE | 2019-04-22 14:40 | NUR ---
GPS/RN-NOTES PATIENT SLEEPING IN BED EASILY AROUSE.NO ACUTE DISTRESS NOTED.
[2019-04-22 16:00] VITALS: BP 130/86
--- NOTE | 2019-04-22 16:17 | NUR ---
Group Note: SW encouraged pt to attend group therapy on 04/22/19 at 2pm discussing decision making. Pt was present but is not appropriate for group at this time. Pt presented with a labile mood and has been shouting throughout the day. Pt is also deaf and can only communicate through writing. Pt was present at the table but was unable to participate effectively and was making verbal noises throughout the duration of the group.
--- NOTE | 2019-04-22 18:46 | NUR ---
GPS/RN-NOTES DR. JOSE IN THE UNIT AND MADE AWARE OF PATIENT URINE CULTURE OF ESBL URINE. PATIENT WAS PUT ON CONTACT ISOLATION.
[2019-04-22 20:00] VITALS: BP 145/81
[2019-04-22] MEDS: DOCUSATE SODIUM 100 MG CAPSULE PO SCH (21:40)
[2019-04-22] MEDS: *INSULIN REGULAR(HUMULIN R)HUM 100 UNIT/ML VIAL SQ PRN (21:43)
[2019-04-22] MEDS: INSULIN GLARGINE, 100 UNIT/ML CARTRIDGE SQ SCH (21:44)
[2019-04-23 08:00] VITALS: BP 149/100
[2019-04-23] MEDS: BLOOD SUGAR DIAGNOSTIC 1 EACH STRIP VI SCH ×4 (08:16→22:58)
[2019-04-23] MEDS: INSULIN REGULAR, HUMAN 100 UNIT/ML 3 ML VIAL SQ PRN ×2 (08:19→12:24)
[2019-04-23] MEDS: ASPIRIN EC 81 MG TABLET.DR PO SCH (09:02)
[2019-04-23] MEDS: glipiZIDE 5 MG TABLET PO SCH ×2 (09:02→16:10)
[2019-04-23] MEDS: REPAGLINIDE 0.5 MG TABLET PO SCH ×3 (09:02→16:11)
[2019-04-23] MEDS: METFORMIN 500 MG TABLET PO SCH ×2 (09:02→16:11)
[2019-04-23] MEDS: OLANZAPINE 5 MG TABLET PO SCH ×3 (09:02→16:10)
[2019-04-23] MEDS: METOPROLOL TARTRATE 25 MG TABLET PO SCH ×2 (09:03→21:52)
[2019-04-23] MEDS: PANTOPRAZOLE 40 MG TABLET.DR PO SCH (09:03)
--- NOTE | 2019-04-23 09:52 | NUR ---
RN NOTE PHARMACY CALLED AND INFORMED THAT OMNICELL IS OUT OF STOCK OF AUGMENTIN 875MG. WILL ADMIN ONCE MED IS RESTOCKED IN THE OMNICELL.
[2019-04-23] MEDS: AMOX/CLAVULANATE 875 MG TABLET PO SCH (10:21)
--- NOTE | 2019-04-23 11:15 | NUR ---
Family Contact: SW called the pts brother, Moi ([phone]), and left a voicemail stating that the SW would like to discuss the pts initial treatment plan and discharge plan.
--- NOTE | 2019-04-23 11:50 | NUR ---
SNF Referral: URBY faxed a referral to [facility] with attn to Luisa to the fax number: [phone].
--- NOTE | 2019-04-23 13:48 | NUR ---
SNF Contact: SW called Luisa ([phone]) from [facility] and she stated that the pt was accepted to their facility.
[2019-04-23 16:00] VITALS: BP 121/71
[2019-04-23] MEDS: LORAZEPAM 1 MG TABLET PO PRN (16:10)
--- NOTE | 2019-04-23 17:00 | NUR ---
RN NOTE BS NOTED TO BE 125, NO INSULIN GIVEN OR REQUIRED PER SLIDING SCALE
--- NOTE | 2019-04-23 18:54 | NUR ---
RN-CO: PATIENT REFUSED TO PROVIDE URINE SPECIMEN. WE WILL REPORT TO NEXT SHIFT.
[2019-04-23 20:00] VITALS: BP 150/91
[2019-04-23] MEDS: DOCUSATE SODIUM 100 MG CAPSULE PO SCH (21:52)
[2019-04-23] MEDS: ZOLPIDEM TARTRATE 5 MG TABLET PO PRN (21:53)
[2019-04-23] MEDS: INSULIN GLARGINE, 100 UNIT/ML CARTRIDGE SQ SCH (22:00)
--- NOTE | 2019-04-24 06:59 | NUR ---
GPS RN NOTE PT AGITATED, IRRITABLE, REFUSED TO PROVIDE URINE SPECIMEN FOR UA. GESTURING AT NURSE TO GET URINE FROM TOILET. WILL CONTINUE TO MONITOR AND ENDORSE TO AM NURSE.
[2019-04-24] MEDS: BLOOD SUGAR DIAGNOSTIC 1 EACH STRIP VI SCH ×4 (07:40→21:50)
[2019-04-24 08:00] VITALS: BP 139/65
[2019-04-24] MEDS: PANTOPRAZOLE 40 MG TABLET.DR PO SCH (08:33)
[2019-04-24] MEDS: ASPIRIN EC 81 MG TABLET.DR PO SCH (08:33)
[2019-04-24] MEDS: METFORMIN 500 MG TABLET PO SCH ×2 (08:33→17:06)
[2019-04-24] MEDS: METOPROLOL TARTRATE 25 MG TABLET PO SCH ×2 (08:33→21:50)
[2019-04-24] MEDS: OLANZAPINE 5 MG TABLET PO SCH ×3 (08:34→17:06)
[2019-04-24] MEDS: glipiZIDE 5 MG TABLET PO SCH ×2 (08:34→17:06)
[2019-04-24] MEDS: REPAGLINIDE 0.5 MG TABLET PO SCH ×3 (08:34→17:06)
--- NOTE | 2019-04-24 09:30 | NUR ---
NURSING NOTE: PT IS ON CONTACT ISOLATION AND ENCOURAGED TO STAY IN HER ROOM. HOWEVER PT REFUSES TO STAY IN HER ROOM DUE TO WANTING TO WATCH TV IN THE DINNING ROOM. WHEN APPROACHED ABOUT THIS PT GETS EASILY AGITATED, YELLING AND SCREAMING. WILL CONTINUE TO MONITORING Q15 MINS. FOR SAFETY AND BEHAVIOR.
--- NOTE | 2019-04-24 09:58 | NUR ---
Dr. Castañeda as the medical and health services manager of the unit gave an order for denial of right to do room search to look for the missing shower head with the hose. Staffs made a thorough search and the thing that we are looking is not in the room.
[2019-04-24] MEDS: INSULIN REGULAR, HUMAN 100 UNIT/ML 3 ML VIAL SQ PRN (12:25)
[2019-04-24 16:02] VITALS: BP 114/60
[2019-04-24] MEDS: NEOM/POLY B SULF/HC OTIC SUSP 10 ML BOTTLE EACH EAR SCH (20:00)
[2019-04-24 20:40] VITALS: BP 131/86
[2019-04-24] MEDS: DOCUSATE SODIUM 100 MG CAPSULE PO SCH (21:49)
[2019-04-24] MEDS: INSULIN GLARGINE, 100 UNIT/ML CARTRIDGE SQ SCH (22:08)
[2019-04-24] MEDS: *INSULIN REGULAR(HUMULIN R)HUM 100 UNIT/ML VIAL SQ PRN (22:10)
--- NOTE | 2019-04-25 02:50 | NUR ---
GPS RN NOTE CALLED LAB TO FOLLOW UP WITH URINE CULTURE RESULTS. PER WARRANTY ADMINISTRATOR, CLARIBEL, UNABLE TO FIND URINE SPECIMEN IN [place].
[2019-04-25] MEDS: BLOOD SUGAR DIAGNOSTIC 1 EACH STRIP VI SCH ×4 (07:27→21:05)
[2019-04-25] MEDS: INSULIN REGULAR, HUMAN 100 UNIT/ML 3 ML VIAL SQ PRN ×3 (07:30→18:17)
[2019-04-25 08:00] VITALS: BP 144/73
[2019-04-25] MEDS: METFORMIN 500 MG TABLET PO SCH ×2 (09:00→18:10)
[2019-04-25] MEDS: NEOM/POLY B SULF/HC OTIC SUSP 10 ML BOTTLE EACH EAR SCH ×3 (09:00→18:20)
[2019-04-25] MEDS: LORAZEPAM 1 MG TABLET PO PRN ×2 (09:03→15:31)
--- NOTE | 2019-04-25 09:03 | NUR ---
GIVEN ATIVAN 1 MG PO FOR YELLING OUT AND AGITATION.
[2019-04-25] MEDS: glipiZIDE 5 MG TABLET PO SCH ×2 (09:27→18:10)
[2019-04-25] MEDS: METOPROLOL TARTRATE 25 MG TABLET PO SCH ×2 (09:27→20:43)
[2019-04-25] MEDS: ASPIRIN EC 81 MG TABLET.DR PO SCH (09:28)
[2019-04-25] MEDS: OLANZAPINE 5 MG TABLET PO SCH ×3 (09:28→16:31)
[2019-04-25] MEDS: REPAGLINIDE 0.5 MG TABLET PO SCH ×3 (09:28→18:10)
[2019-04-25] MEDS: PANTOPRAZOLE 40 MG TABLET.DR PO SCH (09:28)
--- NOTE | 2019-04-25 15:51 | NUR ---
GIVEN ATIVAN PO FOR AGITATION.
[2019-04-25 16:00] VITALS: BP 144/70
--- NOTE | 2019-04-25 17:00 | NUR ---
URINE SENT SENT PER ORDERS FOR CULTURE.
--- NOTE | 2019-04-25 17:03 | NUR ---
given zyprexa along with tylenol 650 mg po.
[2019-04-25] MEDS: LINAGLIPTIN 5 MG TABLET PO SCH (18:00)
[2019-04-25 20:00] VITALS: BP 104/57
--- NOTE | 2019-04-25 20:00 | NUR ---
GPS/RN OPENING NOTES RECEIVED PATIENT IN BED, ON CONTACT ISOLATION FOR ESBL OF URINE. RESPIRATIONS EVEN AND UNLABORED. OBSERVED RESTING IN BED. BED LOCKEC, CALL LIGHTS WITHIN REACH. TO MONITOR FOR ANY CHANGES,
[2019-04-25 20:57] VITALS: BP 104/57
[2019-04-25] MEDS: DOCUSATE SODIUM 100 MG CAPSULE PO SCH (21:05)
[2019-04-25] MEDS: INSULIN GLARGINE, 100 UNIT/ML CARTRIDGE SQ SCH (21:26)
[2019-04-25] MEDS: *INSULIN REGULAR(HUMULIN R)HUM 100 UNIT/ML VIAL SQ PRN (21:27)
--- NOTE | 2019-04-26 07:20 | NUR ---
RN NOTES RECEIVED PATIENT IN BED AWAKE RESTING IN BED. NOT IN ANY FORM OF DISTRESS, NO SOB. DENIED SI/HI. KEPT PATIENT SAFE AND COMFORTABLE. MAINTAINED ISOLATION PRECAUTIONS FOR ESBL OF URINE. APPROPRIATE PPE USED ACCORDINGLY. BED IN LOW/LOCKED POSITION, SIDERAILS UP. WILL MONITOR ACCORDINGLY.
[2019-04-26 08:00] VITALS: BP 126/76
[2019-04-26] MEDS: BLOOD SUGAR DIAGNOSTIC 1 EACH STRIP VI SCH ×4 (09:17→21:26)
[2019-04-26] MEDS: glipiZIDE 5 MG TABLET PO SCH ×2 (09:18→17:37)
[2019-04-26] MEDS: OLANZAPINE 5 MG TABLET PO SCH ×3 (09:18→17:37)
[2019-04-26] MEDS: LINAGLIPTIN 5 MG TABLET PO SCH (09:18)
[2019-04-26] MEDS: PANTOPRAZOLE 40 MG TABLET.DR PO SCH (09:18)
[2019-04-26] MEDS: REPAGLINIDE 0.5 MG TABLET PO SCH ×3 (09:19→17:38)
[2019-04-26] MEDS: ASPIRIN EC 81 MG TABLET.DR PO SCH (09:19)
[2019-04-26] MEDS: METOPROLOL TARTRATE 25 MG TABLET PO SCH ×2 (09:19→21:23)
[2019-04-26] MEDS: METFORMIN 500 MG TABLET PO SCH ×2 (09:20→17:38)
[2019-04-26] MEDS: NEOM/POLY B SULF/HC OTIC SUSP 10 ML BOTTLE EACH EAR SCH ×3 (09:24→17:37)
[2019-04-26] MEDS: LORAZEPAM 1 MG TABLET PO PRN (11:21)
[2019-04-26] MEDS: INSULIN REGULAR, HUMAN 100 UNIT/ML 3 ML VIAL SQ PRN (12:19)
[2019-04-26 16:00] VITALS: BP 120/68
[2019-04-26 20:27] VITALS: BP 133/67
[2019-04-26] MEDS: DOCUSATE SODIUM 100 MG CAPSULE PO SCH (21:23)
[2019-04-26] MEDS: INSULIN GLARGINE, 100 UNIT/ML CARTRIDGE SQ SCH (21:26)
[2019-04-26] MEDS: *INSULIN REGULAR(HUMULIN R)HUM 100 UNIT/ML VIAL SQ PRN (21:27)
[2019-04-27 06:34] LABS: BASOPHILS % (AUTO) 0.1 % (0.0-2.0); EOSINOPHILS % (AUTO) 0.1 % (0.0-6.0); HEMATOCRIT 36 % (33-45); HEMOGLOBIN 12.2 g/dL (11.5-14.8); LYMPHOCYTES # (AUTO) 1.6 /CMM (0.8-4.8); LYMPHOCYTES % (AUTO) 21.6 % (20.0-44.0); MEAN CORPUSCULAR HGB CONC 34 g/dl (31.0-36.0); MEAN CORPUSCULAR VOLUME 99 fL (82-100); NEUTROPHILS # (AUTO) 4.9 /CMM (1.8-8.9); NEUTROPHILS % (AUTO) 65.2 % (43.0-81.0); PLATELET COUNT (AUTO) 352 /CMM (150-450); RED BLOOD CELL COUNT(AUTO) 3.64 MIL/uL (4.0-5.2); WHITE BLOOD COUNT (AUTO) 7.5 K/uL (4.3-11.0)
[2019-04-27 06:53] LABS: CALCIUM, SERUM 9.6 mg/dL (8.5-10.1); CREATININE 0.9 mg/dL (0.6-1.3); POTASSIUM 5.9 mmol/L (3.5-5.1)
[2019-04-27] MEDS: BLOOD SUGAR DIAGNOSTIC 1 EACH STRIP VI SCH ×3 (07:30→17:17)
[2019-04-27] MEDS: REPAGLINIDE 0.5 MG TABLET PO SCH ×2 (07:30→12:00)
[2019-04-27] MEDS: glipiZIDE 5 MG TABLET PO SCH ×2 (07:30→17:15)
[2019-04-27] MEDS: PANTOPRAZOLE 40 MG TABLET.DR PO SCH (07:30)
[2019-04-27 08:00] VITALS: BP 134/79
[2019-04-27] MEDS: OLANZAPINE 5 MG TABLET PO SCH ×3 (09:04→17:16)
[2019-04-27] MEDS: ASPIRIN EC 81 MG TABLET.DR PO SCH (09:04)
[2019-04-27] MEDS: LINAGLIPTIN 5 MG TABLET PO SCH (09:05)
[2019-04-27] MEDS: METOPROLOL TARTRATE 25 MG TABLET PO SCH (09:05)
[2019-04-27] MEDS: METFORMIN 500 MG TABLET PO SCH ×2 (09:05→17:16)
[2019-04-27] MEDS: NEOM/POLY B SULF/HC OTIC SUSP 10 ML BOTTLE EACH EAR SCH ×3 (09:06→17:00)
--- NOTE | 2019-04-27 09:13 | NUR ---
SNF Contact: RUBY called Luisa ([phone]) from [facility] and informed her that the pt is going to be discharged today. She stated that the pt will be placed in Rm 27B.
--- NOTE | 2019-04-27 09:29 | NUR ---
Family Contact: SW called the pts brother, Moi ([phone]), and left a voicemail stating that the pt is going to be discharged to [facility] today.
--- NOTE | 2019-04-27 10:22 | NUR ---
RN-CO: DR PIZANO GAVE AN ORDER TO DISCONTINUE HOLD AND DISCHARGE PATIENT TO SNF, NOTED.
--- NOTE | 2019-04-27 11:03 | NUR ---
MD Contact: RUBY spoke to Dr. Howard ([phone]) and he stated that he would like the pt to go to one of the facilities that he follows. SW stated that the pts placement has already been found but the MD stated that this patient is his patient and he would like her to be placed in one of the facilities that he attends. He informed the SW about the multiple placements that she can try sending a referral to. SW stated that she will make that attempt and then inform him.
[2019-04-27] MEDS ORDERED: SODIUM POLYSTYRENE SULFONATE 15 G/60 ML BOTTLE PO ONE (11:30)
--- NOTE | 2019-04-27 11:30 | NUR ---
RN NOTE: AWARE OF K LEVEL 5.9 WITH NEW ORDER KAYEXALATE 30GM ALL ORDERS CARRIED .
--- NOTE | 2019-04-27 11:50 | NUR ---
SNF Referral: RUBY faxed a referral to [facility] with attn to Nicki to the fax number: [phone].
--- NOTE | 2019-04-27 11:51 | NUR ---
SNF Contact: Nicki ([phone]) from [facility] contacted the SW and stated that the pt was not accepted to their facility.
--- NOTE | 2019-04-27 12:20 | NUR ---
SNF Referral: RUBY faxed a referral to the following facilities that are listed below: [facility] with attn to Admissions to the fax number: [phone] [facility] with attn to Admissions to the fax number: [phone] [facility] with attn to Admissions to the fax number: [phone]
--- NOTE | 2019-04-27 12:24 | NUR ---
SNF Contact: Altagracia ([phone]) from [facility] contacted the SW and stated that the pt was accepted to their facility.
[2019-04-27] MEDS: INSULIN REGULAR, HUMAN 100 UNIT/ML 3 ML VIAL SQ PRN (12:44)
--- NOTE | 2019-04-27 15:16 | NUR ---
Discharge Note: Pt was discharged to [facility]F located at [address], [place] [address]; . Pt was discharged at 2PM via [facility]. Pt was placed in Rm 21A. Pts brother, Moi ([phone]), was informed of the discharge. Upon discharge, pt appears to be in a dysphoric mood and presents with a distressed affect. Pt appears to be alert and oriented x4 (time, place, self and situation). Pt denied both suicidal and homicidal ideation as well as auditory and visual hallucinations. Pt will be under the care of psychiatrist, Dr. Peters, located at [address] [place] [address]; and her flocculator operator, Dr. Howard, located at [address] [place] [address]; .
[2019-04-27 15:49] LABS: CREATININE 0.9 mg/dL (0.6-1.3); POTASSIUM 5.1 mmol/L (3.5-5.1)
[2019-04-27 16:00] VITALS: BP 140/59
--- NOTE | 2019-04-27 17:22 | NUR ---
residential designer Note: 78 y/o female was discharged to [facility] located at [address] [place] [address].Patient compliant with medications ,cooperative ,cooperative with treatment plans Patient denies SI/HI/AVH and instructed to go to closest ER if developing SI/HI.Behavior improved psychiatric tx plans met ,medical tx plans deferred for continual monitoring .Educated pt about after care plan (exit -care )and copy provided ,returned belongings to patient ,reprot given to garret RN in SNF and also notified him of gram negative kel in urine , blakely of result and wants to start patient on antibiotic in SNF . and DR. preston called back with discharge orders all orders carried out .Patient discharged with ambulance .
== END 2019-04-27 17:20 | DRG 885 ==
LOC: ER 20:20 → GPS 04-14 04:22
PROVIDERS: ADMIT Psychiatry & Neurology Psychiatry; ATTEND Internal Medicine
DX: F20.0 Paranoid schizophrenia (principal); N17.9 Acute kidney failure, unspecified; N39.0 Urinary tract infection, site not specified; F29 Unspecified psychosis not due to a substance or known physiological condition; F41.9 Anxiety disorder, unspecified; E86.0 Dehydration; I10 Essential (primary) hypertension; E78.00 Pure hypercholesterolemia, unspecified; H91.3 Deaf nonspeaking, not elsewhere classified; Z88.2 Allergy status to sulfonamides; Z79.82 Long term (current) use of aspirin; Z79.84 Long term (current) use of oral hypoglycemic drugs; Z79.899 Other long term (current) drug therapy; E78.5 Hyperlipidemia, unspecified; E66.3 Overweight; E11.9 Type 2 diabetes mellitus without complications; F31.9 Bipolar disorder, unspecified; J44.9 Chronic obstructive pulmonary disease, unspecified; K59.00 Constipation, unspecified; Z79.4 Long term (current) use of insulin; Z87.440 Personal history of urinary (tract) infections; Z87.891 Personal history of nicotine dependence; Z86.19 Personal history of other infectious and parasitic diseases
CPT/HCPCS: 36415; 80048-TC; 80053-TC; 80061-TC; 80076-TC; 80305; 81000-TC; 82803-TC; 82962-TC; 84439-TC; 84443-TC; 85025-TC; 87081-TC; 87086-TC; 87186-TC; 97116-TC; 97530-TC; G0480; J1815; J7030

== ENCOUNTER 2019-05-04 22:13 | Inpatient (IN) | payer MEDICARE, OTHER ==
[~2019-05-04] VITALS: Ht 167.6 cm; Wt 79.0 kg
[~2019-05-04 22:13] MED LIST changes: -AMLO5TAB9 PO; +ASCO500T87 PO; +GLIP10TA11 PO; +INSU100V3 IJ; -LOPE2CAP PO; +LORA-259 PO; -LOSA50TA39 PO; -METF-440 PO; +METF500T20 PO; +MULT1TAB62 PO; +OLAN7.5T3 PO; +OMEP1CAP25 PO; -PANT40TA4 PO; -PIOG30TA10 PO; +REPA1TAB7 PO; +ZINC1CAP2 PO
--- NOTE | 2019-05-04 22:26 | NUR ---
PATIENT CAME TO ER BED 11 FROM A FACILITY "[facility]" [facility] C/O AGGRESSIVE TOWARDS STAFF. AAOX3. PATIENT DENIES SI HI. PATIENT IS MUTE AND DEAF. CONNECTED TO MONITOR WITH STITTER AT BEDSIDE.
[2019-05-04 22:37] LABS: BASOPHILS % (AUTO) 0.6 % (0.0-2.0); EOSINOPHILS % (AUTO) 0.1 % (0.0-6.0); HEMATOCRIT 33 % (33-45); HEMOGLOBIN 11.1 g/dL (11.5-14.8); LYMPHOCYTES # (AUTO) 1.4 /CMM (0.8-4.8); LYMPHOCYTES % (AUTO) 19.3 % (20.0-44.0); MEAN CORPUSCULAR HGB CONC 34 g/dl (31.0-36.0); MEAN CORPUSCULAR VOLUME 98 fL (82-100); MONOCYTES # (AUTO) 0.9 /CMM (0.1-1.30); MONOCYTES % (AUTO) 12.1 % (2.0-12.0); NEUTROPHILS # (AUTO) 4.9 /CMM (1.8-8.9); NEUTROPHILS % (AUTO) 67.9 % (43.0-81.0); PLATELET COUNT (AUTO) 295 /CMM (150-450); RED BLOOD CELL COUNT(AUTO) 3.33 MIL/uL (4.0-5.2); WHITE BLOOD COUNT (AUTO) 7.3 K/uL (4.3-11.0)
--- NOTE | 2019-05-04 22:40 | NUR ---
SPOKE WITH ELIANE BLOOD TO ADMIT TO [facility]
--- NOTE | 2019-05-04 22:44 | NUR ---
URINE COLLECTED AND SENT TO LAB
[2019-05-04 22:47] LABS: CALCIUM, SERUM 9.2 mg/dL (8.5-10.1); CARBON DIOXIDE 30 mmol/L (21-32); CHLORIDE 106 mmol/L (98-107); CREATININE 0.8 mg/dL (0.6-1.3); GLUCOSE 140 mg/dL (74-106); POTASSIUM 4.1 mmol/L (3.5-5.1); SODIUM SERUM 142 mmol/L (136-145); UREA NITROGEN, BLOOD 14 mg/dL (7-18)
[2019-05-04 22:53] LABS: ALANINE AMINOTRANSFERASE 29 U/L (12-78); ALCOHOL, BLOOD < 3 mg/dL (0-0); ALKALINE PHOSPHATASE 108 U/L (46-116); ASPARTATE AMINOTRANSFERASE 17 U/L (15-37); BILIRUBIN,DIRECT 0.1 mg/dL (0.0-0.2); BILIRUBIN,TOTAL 0.7 mg/dL (0.2-1.0); TOTAL PROTEIN, SERUM 6.7 g/dL (6.4-8.2)
[2019-05-04 22:54] LABS: ACETAMINOPHEN 0 ug/ml (10-30); SALICYLATE < 0.2 mg/dL (2.8-20.0)
[2019-05-04 23:01] LABS: APPEARANCE,URINE Clear (CLEAR); BILIRUBIN,URINE SMALL (NEGATIVE); BLOOD, URINE Negative Ery/uL (NEGATIVE); COLOR,URINE Yellow (YELLOW); KETONES,URINE Trace (NEGATIVE); LEUKOCYTE ESTERASE ,URINE Negative (NEGATIVE); NITRITE, URINE Negative (NEGATIVE); PROTEIN,URINE 100 mg/dl (NEGATIVE); UGLUCOSE Negative (NEGATIVE); UROBILINOGEN,URINE 0.2 EU/dL (0.2)
--- NOTE | 2019-05-04 23:12 | NUR ---
CALLED BATCHING OPERATOR JESUS KULKARNI FOR EVALUATION
[2019-05-04 23:16] LABS: BACTERIA,URINE Few /HPF (None Seen); RBC,URINE 0-2 /HPF (0-2); SQUAMOUS EPITHELIAL CELL,UR Few /HPF (None Seen)
--- NOTE | 2019-05-05 01:42 | NUR ---
SHAD LEE CRISISTEAM AT BEDSIDE FOR EVAL.
--- NOTE | 2019-05-05 01:49 | NUR ---
BED ASSIGNMENT 218B
--- NOTE | 2019-05-05 02:12 | NUR ---
REPORT GIVEN TO GUANACO LEE FOR RIVAS.
[2019-05-05 02:57] VITALS: BP 141/84
[2019-05-05] MEDS ORDERED: ACETAMINOPHEN 325 MG TABLET PO PRN (03:00)
[2019-05-05] MEDS ORDERED: MAGNESIUM HYDROXIDE 30 ML UDC PO PRN (03:00)
[2019-05-05] MEDS ORDERED: BLOOD SUGAR DIAGNOSTIC 1 EACH STRIP IN ONE (03:00)
[2019-05-05] MEDS ORDERED: MAG HYDROX/AL HYDROX/SIMETH 30 ML UDC PO PRN (03:00)
--- NOTE | 2019-05-05 03:27 | NUR ---
GPS ADMISSION NOTES: ADMITTED 78 Y/O FEMALE FROM [facility] ER UNIT TO GPS ON 5150. PER HOLD PY CAME FROM [facility]. SHE CAME IN FOR PSYCH EVAL DUE TO PT BEING COMBATIVE AND AGGRESSIVE AT THE FACILITY. PT BECAME AGITATED, SCREAMING, GROAINING, DISTURBING OTHER PTS AND EPISODES OF STRIKING OTHER RESIDENTS. UPON FACE TO FACE ASSESSMENT, PT IS A/OX2-3, FORGETFUL, NEEDY, EASILY AGITATED, UNCOOPERATIVE, GARBLE SPEECH, AND ANXIOUS. PT KIM SI AND HI AT THIS TIME. PT IS DEAF AND MUTE. ABLE TO COMMUNICATE WITH HER THREW WRITING ON A PAPER AND PENCIL. WHEN ASKED A QUAETION PT REFUSES TO ANSWER AND HARD TO COMPREHEND WHAT SHE IS SAYING. PT REFUSED TO SIGN CONSENT PAPER DUE TO BEING EASILY AGITATED. ENVIRONMENTAL SAFETY CHECK DONE Q15 MIN. ENCOURAGE PT TO VERBALIZE FEELINGS AND CONCERNS TO STAFF. ORIENTED TO THE UNIT. BELONGINGS CHECKED FOR CONTRABAND WERE DONE. NURSING ASSESSMENT DONE. PT REFUSED SKIN ASSESSMENT. EXPLAIN RISKS AND BENEFITS. PT STILL REFUSED X3. PICTURE OF FACE TAKEN AND PUT IN CHART FOR IDENTIFICATION. PT RIGHTS DISCUSSED BY DRUG ABUSE PROGRAM COORDINATOR. PROVIDED THE PT WITH HANDBOOK AND MED GUIDE. VITALS CHECKED WNL. NO S/S OF RESP DISTRESS. BREATHING EVEN AND UNLABORED. CONTINUE TO MONITOR
[2019-05-05] MEDS ORDERED: TRADJENTA PO (03:56)
[2019-05-05] MEDS ORDERED: METO25TA6 PO (03:56)
[2019-05-05] MEDS ORDERED: DEXTROSE 50%-WATER 50 ML DISP.SYRIN IV PRN (07:00)
[2019-05-05] MEDS: BLOOD SUGAR DIAGNOSTIC 1 EACH STRIP IN SCH ×4 (07:27→22:17)
[2019-05-05] MEDS: INSULIN REGULAR, HUMAN 100 UNIT/ML 3 ML VIAL SQ PRN ×2 (07:35→17:11)
[2019-05-05 08:00] VITALS: BP 146/68
[2019-05-05] MEDS ORDERED: INSULIN REGULAR, HUMAN 100 UNIT/ML 3 ML VIAL IJ SCH (08:30)
[2019-05-05] MEDS: REPAGLINIDE 0.5 MG TABLET PO SCH ×3 (08:53→17:12)
[2019-05-05] MEDS: METOPROLOL TARTRATE 25 MG TABLET PO SCH ×2 (08:54→20:42)
[2019-05-05] MEDS: PANTOPRAZOLE 40 MG TABLET.DR PO SCH (08:54)
[2019-05-05] MEDS: LINAGLIPTIN 5 MG TABLET PO SCH (08:55)
[2019-05-05] MEDS: ASPIRIN 81 MG TAB.CHEW PO SCH (10:51)
--- NOTE | 2019-05-05 11:57 | NUR ---
RN NOTE: ACCUCHECK 68. PT ALERT AND EATING. JUICE GIVEN
[2019-05-05] MEDS ORDERED: OLANZAPINE 2.5 MG TABLET PO SCH ×2 (13:30→22:00)
--- NOTE | 2019-05-05 13:46 | NUR ---
Facility Contact: SW called [facility] and spoke to Altagracia who stated that the pt can return to the facility once she is stable.
--- NOTE | 2019-05-05 13:53 | NUR ---
Family Contact: SW called the pts brother, Moi ([phone]), and left a voicemail that stated that the SW would like to discuss the pts treatment plan and discharge plan.
[2019-05-05] MEDS: OLANZAPINE 5 MG TABLET PO SCH ×2 (14:02→20:41)
--- NOTE | 2019-05-05 14:05 | NUR ---
Family Contact: Pts brother, Moi ([phone]), called the SW and stated that he understands that the pt will be discharged back to the facility once she is stable.
--- NOTE | 2019-05-05 14:20 | NUR ---
Initial Discharge Plan: Pt currently resides at [facility] [place] at [address] [place] [address]; . Per pt, she would like to return to the facility. SW will work with the pt and the MD regarding appropriate discharge planning. SW will from a safe and proper discharge.
--- NOTE | 2019-05-05 15:39 | NUR ---
Group Note: SW encouraged the pt to participate in group therapy on 05/05/19 at 2pm discussing urges. Pt is deaf and appeared to be confused and was unable to engage in the topic. SW deemed this pt inappropriate for group therapy.
[2019-05-05 16:00] VITALS: BP 152/77
[2019-05-05] MEDS: METFORMIN 500 MG TABLET PO SCH (17:12)
[2019-05-05] MEDS: LORAZEPAM 1 MG TABLET PO PRN (17:12)
[2019-05-05] MEDS: DOCUSATE SODIUM 100 MG CAPSULE PO SCH (17:12)
[2019-05-05 20:00] VITALS: BP 119/56
[2019-05-05 20:17] VITALS: BP 119/56
--- NOTE | 2019-05-05 22:12 | NUR ---
GPS RN notes Pt's blood sugar is 65. Pt is asymptomatic, alert, able to communicate and able to eat. Gave Pt 1 apple juice, 2 orange juices, and some crackers. Will check blood sugar in 10 minutes. Charge nurse is aware and informed. Will continue to monitor.
--- NOTE | 2019-05-05 22:26 | NUR ---
GPS RN notes Pt's blood sugar second time is 76. Pt is asymptomatic. Two orange juice and 1 cracker is given. Pt is able to eat well with no difficulties. Charge nurse is aware and informed. Will continue to monitor.
--- NOTE | 2019-05-05 23:05 | NUR ---
GPS RN notes Transfer Pt to [facility]
--- NOTE | 2019-05-05 23:10 | NUR ---
GPS RN OPENING NOTE RECEIVED REPORT FROM CHACORTA LEE. TOLERATING ROOM AIR. NO S/S OF PAIN. NO DISTRESS NOTED. PATIENT CURRENTLY ASLEEP. WILL CONTINUE TO MONITOR.
--- NOTE | 2019-05-05 23:50 | NUR ---
TRANSFER OF CARE TO CHACORTA LEE.
--- NOTE | 2019-05-05 23:51 | NUR ---
GPS RN notes Received Pt back from [facility]
[2019-05-06 06:57] LABS: CREATININE 0.8 mg/dL (0.6-1.3)
[2019-05-06] MEDS ORDERED: PANTOPRAZOLE 40 MG TABLET.DR PO SCH (07:30)
[2019-05-06 08:00] VITALS: BP 124/65
[2019-05-06] MEDS: INSULIN REGULAR, HUMAN 100 UNIT/ML 3 ML VIAL SQ PRN (08:21)
[2019-05-06] MEDS: BLOOD SUGAR DIAGNOSTIC 1 EACH STRIP IN SCH ×4 (08:35→21:21)
[2019-05-06] MEDS: DOCUSATE SODIUM 100 MG CAPSULE PO SCH ×2 (08:44→17:42)
[2019-05-06] MEDS: REPAGLINIDE 0.5 MG TABLET PO SCH ×3 (08:44→17:42)
[2019-05-06] MEDS: LINAGLIPTIN 5 MG TABLET PO SCH (08:45)
[2019-05-06] MEDS: METFORMIN 500 MG TABLET PO SCH ×2 (08:45→17:42)
[2019-05-06] MEDS: LORAZEPAM 1 MG TABLET PO PRN (08:45)
[2019-05-06] MEDS: ASPIRIN 81 MG TAB.CHEW PO SCH (08:46)
[2019-05-06] MEDS: PANTOPRAZOLE 40 MG TABLET.DR PO SCH (08:46)
[2019-05-06] MEDS: OLANZAPINE 5 MG TABLET PO SCH ×2 (08:46→21:21)
[2019-05-06 08:49] LABS: CHOLESTEROL 153 mg/dL (<200); HDL CHOLESTEROL 40 mg/dL (40-60); LDL 85 mg/dL (0-99); TRIGLYCERIDES 151 mg/dL (30-150)
--- NOTE | 2019-05-06 09:17 | NUR ---
PT. YELLING OUT AND AGITATED,ATTEMPTED TO GIVE HER ATIVAN BUT REFUSED.
[2019-05-06] MEDS: METOPROLOL TARTRATE 25 MG TABLET PO SCH ×2 (09:52→21:21)
[2019-05-06 16:00] VITALS: BP 128/71
--- NOTE | 2019-05-06 18:31 | NUR ---
COOPERATIVE,COMPLIANT,IN CALM MOOD.
--- NOTE | 2019-05-06 19:25 | NUR ---
REPORT RECIEVED FROM DEENA LEE. PATIENT IS AMBULATING HALLWAY. PATIENT IS DEAF AND MUTE. PATIENT APPEARS RESTLESS. GAIT IS STEADY. BREATHING IS EVEN AND UNLABORED. PT IS PER REPORT HAS BEEN COOPERATIVE,COMPLIANT, AND IN IN A CALM MOOD. Addendum: 05/06/19 at 2253 by ARNOLD MC RN SAFETY PRECUATIONS IN PLACE WILL CONT TO MONITOR PATIENT WITH STAFF PER PROTOCOL FOR SAFETY.
[2019-05-06 20:30] VITALS: BP 117/66
[2019-05-07] MEDS: BLOOD SUGAR DIAGNOSTIC 1 EACH STRIP IN SCH ×4 (07:58→22:34)
[2019-05-07 08:00] VITALS: BP 152/87
[2019-05-07] MEDS: PANTOPRAZOLE 40 MG TABLET.DR PO SCH (08:21)
[2019-05-07] MEDS: ASPIRIN 81 MG TAB.CHEW PO SCH (08:21)
[2019-05-07] MEDS: METFORMIN 500 MG TABLET PO SCH ×2 (08:21→16:21)
[2019-05-07] MEDS: DOCUSATE SODIUM 100 MG CAPSULE PO SCH ×2 (08:21→16:21)
[2019-05-07] MEDS: OLANZAPINE 5 MG TABLET PO SCH ×2 (08:21→21:11)
[2019-05-07] MEDS: REPAGLINIDE 0.5 MG TABLET PO SCH ×3 (08:21→17:13)
[2019-05-07] MEDS: LINAGLIPTIN 5 MG TABLET PO SCH (08:21)
[2019-05-07] MEDS: METOPROLOL TARTRATE 25 MG TABLET PO SCH ×2 (08:22→21:12)
--- NOTE | 2019-05-07 09:50 | NUR ---
GPS/RN-NOTES Patient c/o indigestion and requesting for medication.Maalox 30ML p.o given as prn order. will cont. monitoring .
[2019-05-07] MEDS: INSULIN REGULAR, HUMAN 100 UNIT/ML 3 ML VIAL SQ PRN (12:24)
[2019-05-07 16:00] VITALS: BP 132/77
--- NOTE | 2019-05-07 16:05 | NUR ---
Individual Note: In lieu of group therapy due to COVID 19, SW met with the pt at bedside and attempted to speak to the pt about her discharge plan but the pt is deaf and mute so the pt is deemed inappropriate for therapy at this time.
[2019-05-07 20:52] VITALS: BP 144/72
[2019-05-07] MEDS: GUAIFENESIN/D-METHORPHAN HB 5 ML UDC PO PRN (21:09)
--- NOTE | 2019-05-07 22:45 | NUR ---
GPS RN NOTE PT ACCU-CHEK DONE. BS 139. PT REFUSED INSULIN. TEACHING PROVIDED ON THE IMPORTANCE OF MEDICATION COMPLIANCE. WILL CONTINUE TO MONITOR.
[2019-05-08 08:00] VITALS: BP 138/62
[2019-05-08] MEDS: BLOOD SUGAR DIAGNOSTIC 1 EACH STRIP IN SCH ×4 (08:01→22:18)
[2019-05-08] MEDS: REPAGLINIDE 0.5 MG TABLET PO SCH ×3 (08:14→17:24)
[2019-05-08] MEDS: OLANZAPINE 5 MG TABLET PO SCH ×3 (08:14→21:53)
[2019-05-08] MEDS: DOCUSATE SODIUM 100 MG CAPSULE PO SCH ×2 (08:14→16:22)
[2019-05-08] MEDS: LINAGLIPTIN 5 MG TABLET PO SCH (08:15)
[2019-05-08] MEDS: PANTOPRAZOLE 40 MG TABLET.DR PO SCH (08:15)
[2019-05-08] MEDS: ASPIRIN 81 MG TAB.CHEW PO SCH (08:15)
[2019-05-08] MEDS: METOPROLOL TARTRATE 25 MG TABLET PO SCH ×2 (08:15→21:53)
[2019-05-08] MEDS: METFORMIN 500 MG TABLET PO SCH ×2 (08:15→16:22)
[2019-05-08] MEDS: INSULIN REGULAR, HUMAN 100 UNIT/ML 3 ML VIAL SQ PRN ×2 (08:18→12:16)
--- NOTE | 2019-05-08 09:12 | NUR ---
GPS/RN-NOTES ZYPREXA 10MG P.O NOT ADMINISTER DUE TO ZYPREXA 7.5MG P.O WAS ADMINISTERED EARLIER.
[2019-05-08] MEDS: LORAZEPAM 1 MG TABLET PO PRN (11:22)
--- NOTE | 2019-05-08 11:25 | NUR ---
GPS/RN-NOTES NOTED PATIENT SCREAMING AND YELLING WITH OTHER PATIENT IN THE DAY ROOM ,REDIRECTED AND OFFERED ATIVAN 1MG P.O PRN ORDER. WILL CONT. MONITORING FOR SAFETY AND BEHAVIOR.
[2019-05-08 16:00] VITALS: BP 137/56
[2019-05-08 20:00] VITALS: BP 131/60
[2019-05-08] MEDS: GUAIFENESIN/D-METHORPHAN HB 5 ML UDC PO PRN (21:53)
--- NOTE | 2019-05-08 22:19 | NUR ---
GPS RN NOTE: ACCU CHEK DONE, BLOOD SUGAR 113, NO INSULIN NEEDED. PT CALM AND COOPERATIVE. NO S/S OF DISTRESS ST THIS TIME. WILL CONTINUE TO MONITOR.
[2019-05-09] MEDS: BLOOD SUGAR DIAGNOSTIC 1 EACH STRIP IN SCH ×4 (07:33→22:15)
[2019-05-09] MEDS: PANTOPRAZOLE 40 MG TABLET.DR PO SCH (07:53)
[2019-05-09 08:00] VITALS: BP 151/75
[2019-05-09] MEDS: REPAGLINIDE 0.5 MG TABLET PO SCH ×3 (08:15→17:25)
[2019-05-09] MEDS: INSULIN REGULAR, HUMAN 100 UNIT/ML 3 ML VIAL SQ PRN ×2 (08:15→12:19)
[2019-05-09] MEDS: METFORMIN 500 MG TABLET PO SCH ×2 (08:48→16:24)
[2019-05-09] MEDS: OLANZAPINE 5 MG TABLET PO SCH ×2 (08:48→21:53)
[2019-05-09] MEDS: DOCUSATE SODIUM 100 MG CAPSULE PO SCH ×2 (08:48→16:24)
[2019-05-09] MEDS: ASPIRIN 81 MG TAB.CHEW PO SCH (08:48)
[2019-05-09] MEDS: LINAGLIPTIN 5 MG TABLET PO SCH (08:48)
[2019-05-09] MEDS: METOPROLOL TARTRATE 25 MG TABLET PO SCH ×2 (08:49→21:53)
[2019-05-09 16:00] VITALS: BP 118/66
--- NOTE | 2019-05-09 17:25 | NUR ---
GPS/RN-NOTES PATIENT BLOOD SUGAR WAS 131 MG/DL, REFUSED 2 UNITS OF INSULIN DESPITE EXPLANATIONS RISK AND BENEFITS. OFFERED X3
[2019-05-09 20:17] VITALS: BP 148/78
--- NOTE | 2019-05-09 22:26 | NUR ---
GPS RN NOTE: ACCU CHEK DONE, BLOOD SUGAR 133, PT REFUSED INSULIN ORDERED. PT CALM AND COOPERATIVE. NO S/S OF DISTRESS ST THIS TIME. WILL CONTINUE TO MONITOR.
--- NOTE | 2019-05-10 07:30 | NUR ---
RN Note Received patient AO to person, confused, able to responds all stimuli. Patient noticed agitating, screaming behavior. Respiratory even and unlabored with room air, no s/s of distress observed. Skin is warm to touch, clean/dry. Accu check done and BS 121mg/dl, took all due medication with compliance. Kept lower position of the bed with locked wheel for safety. Call light within reach, will continue to monitor.
[2019-05-10 08:00] VITALS: BP 143/80
[2019-05-10] MEDS: OLANZAPINE 5 MG TABLET PO SCH ×2 (08:57→20:41)
[2019-05-10] MEDS: METFORMIN 500 MG TABLET PO SCH ×2 (08:58→17:16)
[2019-05-10] MEDS: LINAGLIPTIN 5 MG TABLET PO SCH (08:58)
[2019-05-10] MEDS: BLOOD SUGAR DIAGNOSTIC 1 EACH STRIP IN SCH ×4 (08:58→21:54)
[2019-05-10] MEDS: LORAZEPAM 1 MG TABLET PO PRN (08:58)
[2019-05-10] MEDS: METOPROLOL TARTRATE 25 MG TABLET PO SCH ×2 (08:58→20:41)
[2019-05-10] MEDS: PANTOPRAZOLE 40 MG TABLET.DR PO SCH (08:58)
[2019-05-10] MEDS: REPAGLINIDE 0.5 MG TABLET PO SCH ×4 (08:58→17:16)
[2019-05-10] MEDS: DOCUSATE SODIUM 100 MG CAPSULE PO SCH ×2 (08:59→17:16)
[2019-05-10] MEDS: ASPIRIN 81 MG TAB.CHEW PO SCH (08:59)
[2019-05-10 16:00] VITALS: BP 139/73
--- NOTE | 2019-05-10 18:00 | NUR ---
RN Note Patient in bed comfortably, does no appears pain or any discomfort, took all due medications with compliance. No screaming or anxiety behavior observed at this time. Skin is warm to touch, clean/dry. Respiratory even and unlabored with room air. Remain lower position of the bed with locked wheel for safety. Call light within reach, all needs met. Will endorse cobol engineer.
[2019-05-10 20:16] VITALS: BP 139/73
[2019-05-10] MEDS: INSULIN REGULAR, HUMAN 100 UNIT/ML 3 ML VIAL SQ PRN (21:55)
--- NOTE | 2019-05-10 22:01 | NUR ---
RN NOTES BLOOD SUGAR CHECK DONE, 141 MG/DL, 2 UNITS OF INSULIN GIVEN/ SLIDING SCALE, COMPLIANT AND COOPERATIVE, WILL CONTINUE TO MONITOR ACCORDINGLY.
--- NOTE | 2019-05-11 06:24 | NUR ---
RN NOTES ABLE TO REST AND SLEPT COMFORTABLY. NO SIGNS OF ACUTE DISTRESS NOTED. WILL ENDORSE TO AM NURSE FOR CONTINUITY OF CARE.
[2019-05-11] MEDS: BLOOD SUGAR DIAGNOSTIC 1 EACH STRIP IN SCH ×4 (07:30→21:39)
--- NOTE | 2019-05-11 07:30 | NUR ---
RN NOTE: PT REFUSED AM BLOOD SUGAR. EDUCATED PT RE NEED AND IMPORTANCE OF BLOOD SUGAR ASSESSMENT. PT REFUSED X 3. WILL ATTEMPT AGAIN AT A LATER TIME.
--- NOTE | 2019-05-11 07:58 | NUR ---
RN NOTE: ACCUCHECK 112. NO INSULIN COVERAGE GIVEN.
[2019-05-11 08:00] VITALS: BP 120/63
[2019-05-11] MEDS: REPAGLINIDE 0.5 MG TABLET PO SCH ×3 (08:20→17:04)
[2019-05-11] MEDS: PANTOPRAZOLE 40 MG TABLET.DR PO SCH (08:20)
[2019-05-11] MEDS: DOCUSATE SODIUM 100 MG CAPSULE PO SCH ×2 (08:20→17:04)
[2019-05-11] MEDS: OLANZAPINE 5 MG TABLET PO SCH ×2 (08:20→21:29)
[2019-05-11] MEDS: METOPROLOL TARTRATE 25 MG TABLET PO SCH ×2 (08:21→21:30)
[2019-05-11] MEDS: METFORMIN 500 MG TABLET PO SCH ×2 (08:21→17:04)
[2019-05-11] MEDS: ASPIRIN 81 MG TAB.CHEW PO SCH (08:21)
[2019-05-11] MEDS: LINAGLIPTIN 5 MG TABLET PO SCH (08:21)
[2019-05-11] MEDS: LORAZEPAM 1 MG TABLET PO PRN (10:18)
[2019-05-11] MEDS: INSULIN REGULAR, HUMAN 100 UNIT/ML 3 ML VIAL SQ PRN ×2 (11:52→21:42)
[2019-05-11 16:00] VITALS: BP 155/67
--- NOTE | 2019-05-11 16:04 | NUR ---
Individual Note: In lieu of group therapy due to COVID 19, and informed her that she will be going back to her [facility] facility later this week. Pt is deaf and mute and therefore communicated through writing. Pt stated that she understood and accepted this plan.
[2019-05-11 20:15] VITALS: BP 144/58
[2019-05-12 06:53] LABS: BASOPHILS % (AUTO) 0.2 % (0.0-2.0); HEMATOCRIT 33 % (33-45); LYMPHOCYTES # (AUTO) 1.4 /CMM (0.8-4.8); LYMPHOCYTES % (AUTO) 20.1 % (20.0-44.0); MEAN CORPUSCULAR HGB CONC 33 g/dl (31.0-36.0); MEAN CORPUSCULAR VOLUME 99 fL (82-100); MONOCYTES # (AUTO) 0.7 /CMM (0.1-1.30); MONOCYTES % (AUTO) 10.4 % (2.0-12.0); NEUTROPHILS # (AUTO) 4.7 /CMM (1.8-8.9); NEUTROPHILS % (AUTO) 69.3 % (43.0-81.0); PLATELET COUNT (AUTO) 298 /CMM (150-450); RED BLOOD CELL COUNT(AUTO) 3.35 MIL/uL (4.0-5.2); WHITE BLOOD COUNT (AUTO) 6.8 K/uL (4.3-11.0)
[2019-05-12 07:07] LABS: ALBUMIN 2.7 g/dL (3.4-5.0); BILIRUBIN,TOTAL 0.5 mg/dL (0.2-1.0); CALCIUM, SERUM 8.7 mg/dL (8.5-10.1); CREATININE 0.9 mg/dL (0.6-1.3); POTASSIUM 4.6 mmol/L (3.5-5.1); TOTAL PROTEIN, SERUM 6.3 g/dL (6.4-8.2)
[2019-05-12] MEDS: BLOOD SUGAR DIAGNOSTIC 1 EACH STRIP IN SCH ×4 (07:35→21:44)
[2019-05-12] MEDS: PANTOPRAZOLE 40 MG TABLET.DR PO SCH (07:36)
[2019-05-12] MEDS: REPAGLINIDE 0.5 MG TABLET PO SCH ×3 (07:47→17:24)
[2019-05-12 08:00] VITALS: BP 102/55
[2019-05-12] MEDS: METFORMIN 500 MG TABLET PO SCH ×2 (08:33→16:55)
[2019-05-12] MEDS: DOCUSATE SODIUM 100 MG CAPSULE PO SCH ×2 (08:33→16:55)
[2019-05-12] MEDS: OLANZAPINE 5 MG TABLET PO SCH ×2 (08:33→21:37)
[2019-05-12] MEDS: ASPIRIN 81 MG TAB.CHEW PO SCH (08:33)
[2019-05-12] MEDS: LINAGLIPTIN 5 MG TABLET PO SCH (08:33)
[2019-05-12] MEDS: METOPROLOL TARTRATE 25 MG TABLET PO SCH ×2 (08:34→21:00)
--- NOTE | 2019-05-12 09:00 | NUR ---
RN NOTE- PT LYING IN BED. ANGRY ABOUT HER FOOD. OPTIONS BROUGHT FOR PT. CALMED NO ACUTE DISTRESS NOTED, VSS AFEBRILE. COMPLIANT WITH ENCOURAGEMENT. PT A+OX2, ABLE TO MAKE NEEDS KNOWN. PT EASILY AGITATED AND IRRITABLE. PT AMBULATORY, CONTINENT AND INDEPENDENT WITH INTAKE. PT DENIES SI/HI AT PRESENT TIME. WILL CONT TO MONITOR PT FOR SAFETY AND BEHAVIOR PER GPS PROTOCOL.
[2019-05-12] MEDS: INSULIN REGULAR, HUMAN 100 UNIT/ML 3 ML VIAL SQ PRN ×2 (11:54→17:03)
--- NOTE | 2019-05-12 12:29 | NUR ---
Individual Note: In lieu of group therapy due to COVID 19, and informed her that she will be going back to her [facility] facility later this week by Saturday. Pt showed her thumbs up to show that she agreed to the discharge plan. Pt is deaf and mute and therefore communicated through writing. Pt stated that she understood and accepted this plan.
[2019-05-12 16:00] VITALS: BP 132/57
[2019-05-12 20:19] VITALS: BP 113/57
--- NOTE | 2019-05-13 05:32 | NUR ---
GPS RN NOTE: PT ACCU-CHEK DONE. BS 95. NO INSULIN NEEDED. PT WAS CALM AND COOPERATIVE. MED COMPLIANT. V/S WNL. NO BEHAVIORAL ISSUES THIS SHIFT. SLEPT MOST OF THE NIGHT. WILL CONTINUE TO MONITOR AND ENDORSE TO AM SHIFT.
[2019-05-13] MEDS: BLOOD SUGAR DIAGNOSTIC 1 EACH STRIP IN SCH ×4 (07:14→21:52)
[2019-05-13] MEDS: PANTOPRAZOLE 40 MG TABLET.DR PO SCH (07:55)
[2019-05-13 08:00] VITALS: BP 150/91
[2019-05-13] MEDS: LINAGLIPTIN 5 MG TABLET PO SCH (08:27)
[2019-05-13] MEDS: ASPIRIN 81 MG TAB.CHEW PO SCH (08:27)
[2019-05-13] MEDS: METOPROLOL TARTRATE 25 MG TABLET PO SCH ×2 (08:27→21:44)
[2019-05-13] MEDS: METFORMIN 500 MG TABLET PO SCH ×2 (08:27→17:09)
[2019-05-13] MEDS: DOCUSATE SODIUM 100 MG CAPSULE PO SCH ×2 (08:27→17:09)
[2019-05-13] MEDS: REPAGLINIDE 0.5 MG TABLET PO SCH ×3 (08:27→17:09)
[2019-05-13] MEDS: OLANZAPINE 5 MG TABLET PO SCH ×2 (08:27→21:44)
--- NOTE | 2019-05-13 08:36 | NUR ---
GPS RN NOTE RECEIVED PATIENT AWAKE IN BED, EATING BREAKFAST. BG 92, NO COVERAGE NEEDED. PATIENT IS AOX2. ABLE TO COMMUNICATE WITH WRITING. DEAF AND MUTE. ABLE TO MAKE NEEDS KNOWN. AMBULATORY WITH STEADY GAIT. WENT BACK TO SLEEP AFTER BREAKFAST. COMPLIANT WITH ACCUCHECK AND MEDICATION ADMINISTRATION. DENIES SI/HI AND VAH. NO SIGNS OF DISTRESS OR AGITATION NOTED THIS AM. BED IN LOCKED POSITION, LOW, WITH 2 SIDE RAILS UP FOR SAFETY. WILL CONTINUE TO MONITOR Q15 FOR MOOD, SAFETY AND BEHAVIOR.
[2019-05-13] MEDS: INSULIN REGULAR, HUMAN 100 UNIT/ML 3 ML VIAL SQ PRN (12:23)
--- NOTE | 2019-05-13 13:44 | NUR ---
Facility Contact: RUBY called [facility] and spoke to Altagracia who stated that the pt is no longer on a bed hold. RUBY stated that she was never made aware of the bed hold and was informed that the pt would be accepted back to the facility once she is stable. Altagracia stated that she would see if she could make a female bed.
--- NOTE | 2019-05-13 15:06 | NUR ---
Individual Note: In lieu of group therapy due to COVID 19, and informed her that she will be going back to her [facility] facility tomorrow. Pt showed her thumbs up to show that she agreed to the discharge plan. SW informed her that the facility is attempting to make a bed for her at this point. Pt is deaf and mute and therefore communicated through writing. Pt stated that she understood and accepted this plan.
[2019-05-13 16:00] VITALS: BP 100/55
[2019-05-13 20:47] VITALS: BP 145/80
--- NOTE | 2019-05-13 21:56 | NUR ---
GPS RN NOTES PT 2200 ACCU-CHEK DONE, BLOOD SUGAR 99. NO INSULIN NEEDED PER SLIDING SCALE. PT IS MED COMPLIANT. NO BEHAVIORAL ISSUES AT THIS TIME. PT LAYING IN BED COMFORTABLY. NO S/S OF DISTRESS. WILL CONTINUE TO MONITOR AND ENDORSE TO AM SHIFT.
[2019-05-14] MEDS: REPAGLINIDE 0.5 MG TABLET PO SCH ×3 (07:59→17:39)
[2019-05-14 08:00] VITALS: BP 125/72
[2019-05-14] MEDS: BLOOD SUGAR DIAGNOSTIC 1 EACH STRIP IN SCH ×4 (08:00→21:31)
[2019-05-14] MEDS: PANTOPRAZOLE 40 MG TABLET.DR PO SCH (08:00)
--- NOTE | 2019-05-14 08:32 | NUR ---
Facility Contact: RUBY called [facility] and spoke to front end specialist Viviane who stated that there was no one in Admissions who would be at the facility today. RUBY stated that Altagracia was supposed to call back regarding whether or not the pt can be sent back to the facility today. Viviane stated that she would send the Admissions a message and someone will call the SW back regarding this pt.
[2019-05-14] MEDS: DOCUSATE SODIUM 100 MG CAPSULE PO SCH ×2 (08:53→16:52)
[2019-05-14] MEDS: METFORMIN 500 MG TABLET PO SCH ×2 (08:53→16:52)
[2019-05-14] MEDS: LINAGLIPTIN 5 MG TABLET PO SCH (08:53)
[2019-05-14] MEDS: OLANZAPINE 5 MG TABLET PO SCH ×2 (08:53→21:31)
[2019-05-14] MEDS: ASPIRIN 81 MG TAB.CHEW PO SCH (08:53)
[2019-05-14] MEDS: METOPROLOL TARTRATE 25 MG TABLET PO SCH ×2 (08:54→21:32)
[2019-05-14 12:21] LABS: THYROID STIMULATING HORMONE 0.413 uIU/mL (0.358-3.74)
[2019-05-14] MEDS: INSULIN REGULAR, HUMAN 100 UNIT/ML 3 ML VIAL SQ PRN ×2 (12:39→17:41)
--- NOTE | 2019-05-14 14:10 | NUR ---
Family Contact: SW called the pts brother, Moi ([phone]), and left a voicemail that stated that the SW would like to discuss the pts treatment plan and discharge plan.
[2019-05-14 16:00] VITALS: BP 125/71
--- NOTE | 2019-05-14 16:22 | NUR ---
Individual Note: In lieu of group therapy due to COVID 19, SW met with the pt in the activities, and informed her that the pt was not discharged today due to her being agitated and due to the facility not having a bed ready. SW stated that she will be discharged early next week. Pt expressed understanding through writing.
[2019-05-14 19:56] VITALS: BP 113/71
[2019-05-14] MEDS: LITHIUM CARBONATE (300 MG CAP) 300 MG CAPSULE PO SCH (21:31)
--- NOTE | 2019-05-14 23:01 | NUR ---
GPS RN NOTE, RECEIVED PATIENT AWAKE AND IN BED, NO S/S OR COMPLAINTS OF PAIN AT THIS TIME. PATIENT IS DISPLAYING NO S/S OF APPARENT DISTRESS AT THIS TIME. PATIENT BREATHING IS UNLABORED WITH EQUAL RISE AND FALL OF THE CHEST. PATIENT IS ALERT AND ORIENTED X 2-3 ON ROOM AIR WITH A SPO2 95%. PATIENT IS COMPLIANT WITH MEDICATIONS, ANXIOUS AT TIMES, AND COOPERATIVE. PATIENT DENIES SUICIDAL AND HOMICIDAL IDEATIONS AT THIS TIME. PATIENT ASSISTED WITH TURNING AND REPOSITIONING Q2HR AND PRN FOR COMFORT AND CIRCULATION. PATIENT HAS NO NEEDS AT THIS TIME. PATIENT EDUCATED ON THE USE OF THE CALL MCCLAIN. PATIENT BED SIDE RAILS UP X 2 FOR SAFETY. PATIENT BED IS LOCKED, LOW, WITH BED ALARM ON. WILL CONTINUE TO MONITOR THIS PATIENT Q15 MINUTES WITH THE HELP OF STAFF TO MAINTAIN SAFETY.
[2019-05-15 08:00] VITALS: BP 133/69
--- NOTE | 2019-05-15 08:38 | NUR ---
FACILITY CONTACT: RUBY called [facility] and spoke to Roxanne, law secretary who stated the search marketing coordinator is working from home and she will make her aware of the call for a callback.
[2019-05-15] MEDS: BLOOD SUGAR DIAGNOSTIC 1 EACH STRIP IN SCH ×4 (08:45→21:30)
[2019-05-15] MEDS: OLANZAPINE 5 MG TABLET PO SCH ×3 (08:47→21:24)
[2019-05-15] MEDS: METFORMIN 500 MG TABLET PO SCH ×2 (08:47→16:40)
[2019-05-15] MEDS: ASPIRIN 81 MG TAB.CHEW PO SCH ×2 (08:47→09:12)
[2019-05-15] MEDS: LINAGLIPTIN 5 MG TABLET PO SCH ×2 (08:47→09:19)
[2019-05-15] MEDS: PANTOPRAZOLE 40 MG TABLET.DR PO SCH (08:47)
[2019-05-15] MEDS: REPAGLINIDE 0.5 MG TABLET PO SCH ×3 (08:47→18:10)
[2019-05-15] MEDS: DOCUSATE SODIUM 100 MG CAPSULE PO SCH ×2 (08:47→16:40)
[2019-05-15] MEDS: LITHIUM CARBONATE (300 MG CAP) 300 MG CAPSULE PO SCH ×3 (08:48→21:24)
[2019-05-15] MEDS: METOPROLOL TARTRATE 25 MG TABLET PO SCH ×3 (08:48→21:24)
--- NOTE | 2019-05-15 08:55 | NUR ---
FACILITY CONTACT: SW received a call from Altagracia, food and beverage coordinator at [facility] Address: [address] [place] [address] stating since pt lost her 14 day bed hold the facility currently has no transitional beds available for pt and therefore they are unable to accept pt back.
[2019-05-15 16:00] VITALS: BP 137/62
[2019-05-15 19:12] VITALS: BP 117/60
--- NOTE | 2019-05-15 19:30 | NUR ---
GPS RN NOTE, RECEIVED PATIENT AWAKE AND IN BED, NO S/S OR COMPLAINTS OF PAIN AT THIS TIME. PATIENT IS DISPLAYING NO S/S OF APPARENT DISTRESS AT THIS TIME. PATIENT BREATHING IS UNLABORED WITH EQUAL RISE AND FALL OF THE CHEST. PATIENT IS ALERT AND ORIENTED X 2-3 ON ROOM AIR WITH A SPO2 94%. PATIENT IS COMPLIANT WITH MEDICATIONS, ANXIOUS AT TIMES, AND COOPERATIVE. PATIENT DENIES SUICIDAL AND HOMICIDAL IDEATIONS AT THIS TIME. PATIENT ASSISTED WITH TURNING AND REPOSITIONING Q2HR AND PRN FOR COMFORT AND CIRCULATION. PATIENT HAS NO NEEDS AT THIS TIME. PATIENT EDUCATED ON THE USE OF THE CALL MCCLAIN. PATIENT BED SIDE RAILS UP X 2 FOR SAFETY. PATIENT BED IS LOCKED, LOW, WITH BED ALARM ON. WILL CONTINUE TO MONITOR THIS PATIENT Q15 MINUTES WITH THE HELP OF STAFF TO MAINTAIN SAFETY.
--- NOTE | 2019-05-15 21:30 | NUR ---
GPS RN NOTE, PERFORMED ACCU CHECK ON PATIENT WITH A BLOOD SUGAR RESULT OF 127. 0 UNITS OF REGULAR INSULIN GIVEN PER SLIDING SCALE. WILL CONTINUE TO MONITOR THIS PATIENT.
[2019-05-16] MEDS: BLOOD SUGAR DIAGNOSTIC 1 EACH STRIP IN SCH ×4 (07:37→22:00)
[2019-05-16 08:00] VITALS: BP 141/69
[2019-05-16] MEDS: ASPIRIN 81 MG TAB.CHEW PO SCH (08:09)
[2019-05-16] MEDS: LINAGLIPTIN 5 MG TABLET PO SCH ×2 (08:09→09:00)
[2019-05-16] MEDS: PANTOPRAZOLE 40 MG TABLET.DR PO SCH (08:10)
[2019-05-16] MEDS: METFORMIN 500 MG TABLET PO SCH ×3 (08:10→16:36)
[2019-05-16] MEDS: REPAGLINIDE 0.5 MG TABLET PO SCH ×4 (08:10→17:19)
[2019-05-16] MEDS: LITHIUM CARBONATE (300 MG CAP) 300 MG CAPSULE PO SCH ×3 (08:10→21:32)
[2019-05-16] MEDS: OLANZAPINE 5 MG TABLET PO SCH ×3 (08:11→21:33)
[2019-05-16] MEDS: DOCUSATE SODIUM 100 MG CAPSULE PO SCH ×2 (08:11→16:36)
[2019-05-16] MEDS: METOPROLOL TARTRATE 25 MG TABLET PO SCH ×2 (08:11→21:00)
--- NOTE | 2019-05-16 09:50 | NUR ---
Pt. is selective on meds and said more pills made her sick. Was explained on the importance and the risk of not takne the meds and still refusing. Psychiatrist made aware that pt. refused Zyprexa po and Smarr po.
[2019-05-16] MEDS: INSULIN REGULAR, HUMAN 100 UNIT/ML 3 ML VIAL SQ PRN (11:53)
[2019-05-16 16:00] VITALS: BP 109/59
--- NOTE | 2019-05-16 17:05 | NUR ---
BS is 136 pt. refused for 2 units Regular Insulin SQ. Explained on the importance and still refusing. Will continue to monitor.
--- NOTE | 2019-05-16 22:01 | NUR ---
GPS RN NOTES 2200 ACCU-CHEK DONE, BLOOD SUGAR 113, NO INSULIN NEEDED PER SLIDING SCALE ORDER. PT LAYING COMFORTABLE IN BED. NO S/S OF ANY DISTRESS. WILL CONTINUE TO MONITOR FOR SAFETY, MOOD AND BEHAVIOR.
[2019-05-16 22:33] VITALS: BP 123/58
[2019-05-17] MEDS: BLOOD SUGAR DIAGNOSTIC 1 EACH STRIP IN SCH ×4 (07:20→21:11)
[2019-05-17] MEDS: PANTOPRAZOLE 40 MG TABLET.DR PO SCH (07:34)
[2019-05-17] MEDS: REPAGLINIDE 0.5 MG TABLET PO SCH ×3 (07:35→17:03)
[2019-05-17] MEDS: DOCUSATE SODIUM 100 MG CAPSULE PO SCH ×2 (08:14→16:57)
[2019-05-17] MEDS: METFORMIN 500 MG TABLET PO SCH ×2 (08:14→16:56)
[2019-05-17] MEDS: LINAGLIPTIN 5 MG TABLET PO SCH (08:14)
[2019-05-17] MEDS: OLANZAPINE 5 MG TABLET PO SCH ×2 (08:15→20:17)
[2019-05-17] MEDS: ASPIRIN 81 MG TAB.CHEW PO SCH (08:16)
[2019-05-17] MEDS: LITHIUM CARBONATE (300 MG CAP) 300 MG CAPSULE PO SCH ×2 (08:16→20:16)
[2019-05-17] MEDS: METOPROLOL TARTRATE 25 MG TABLET PO SCH ×2 (08:17→20:16)
--- NOTE | 2019-05-17 09:00 | NUR ---
RN NOTE- PT AWAKENED EASILY. MORNING RX ADMINISTERED WITH COMPLIANCE. PO INTAKE GOOD. DECREASED AGITATION AND OPPOSITIONAL BEHAVIOR. DENIES SI HI AH VH. ANSWERS QUERY W WRITTEN NOTES. ALL NEEDS ATTENDED. PT RESTING QUIETLY AFTER BREAKFAST. WILL PROVIDE CALM ENVIRONMENT AND ENCOURAGE INTERACTION
[2019-05-17] MEDS: INSULIN REGULAR, HUMAN 100 UNIT/ML 3 ML VIAL SQ PRN ×2 (12:44→21:11)
[2019-05-17 20:12] VITALS: BP 143/58
--- NOTE | 2019-05-17 20:52 | NUR ---
GPS RN NOTES: REFUSED WEEKLY BODY ASSESSMENT PT REFUSED WEEKLY BODY ASSESSMENT. PT BECAME MORE AGITATED WHEN EXPLAIN RISKS AND BENEFITS X3. STILL REFUSED. CONTINUE TO MONITOR.
--- NOTE | 2019-05-17 21:14 | NUR ---
GPS RN NOTES: REFUSED INSULIN COVERAGE PTS BLOOD SUGAR IS 144. EXPLAIN TO PT THAT THERE IS INSULIN COVERAGE DUE TO HER BS LEVEL. PT REFUSED INSULIN. PT WROTE DOWN ON A PIECE OF PAPER THAT SHE DOES NOT WANT INSULIN BECAUSE SHE KNOWS HER SUGAR DROP WHEN SHE SLEEPS. EXPLAINED RISKS AND BENEFITS. PT STILL REFUSED X3. CONTINUE TO MONITOR.
[2019-05-18] MEDS: BLOOD SUGAR DIAGNOSTIC 1 EACH STRIP IN SCH ×4 (07:30→22:07)
[2019-05-18] MEDS: PANTOPRAZOLE 40 MG TABLET.DR PO SCH (07:30)
--- NOTE | 2019-05-18 08:38 | NUR ---
Facility Contact: SW called [facility] and spoke to Altagracia, sustainability coordinator, and inquired about the pts discharge back to the SNF. RUBY stated that she was informed from the beginning that the pt would be accepted back. community marketing coordinator stated that there are no beds at this time and that the facility is nervous about her agitated behavior. SW stated that the pt has been calm and cooperative on the unit. community marketing coordinator stated that she will speak to her DON and that she will be calling the SW back after.
[2019-05-18] MEDS: METOPROLOL TARTRATE 25 MG TABLET PO SCH ×2 (08:46→21:59)
[2019-05-18] MEDS: ASPIRIN 81 MG TAB.CHEW PO SCH (08:47)
[2019-05-18] MEDS: DOCUSATE SODIUM 100 MG CAPSULE PO SCH ×2 (08:47→17:14)
[2019-05-18] MEDS: LINAGLIPTIN 5 MG TABLET PO SCH (08:47)
[2019-05-18] MEDS: METFORMIN 500 MG TABLET PO SCH ×2 (08:47→17:14)
[2019-05-18] MEDS: LITHIUM CARBONATE (300 MG CAP) 300 MG CAPSULE PO SCH ×3 (08:47→22:00)
[2019-05-18] MEDS: REPAGLINIDE 0.5 MG TABLET PO SCH ×2 (08:47→13:24)
[2019-05-18] MEDS: OLANZAPINE 5 MG TABLET PO SCH ×3 (09:01→22:00)
[2019-05-18 10:48] VITALS: BP 121/65
--- NOTE | 2019-05-18 11:59 | NUR ---
SNF Referral: RUBY faxed a referral to the following nursing facilities: [facility] to the fax number: [phone] [facility] to the fax number: [phone] [facility] to the fax number: [phone]
--- NOTE | 2019-05-18 13:05 | NUR ---
SNF Contact: Daria ([phone]), admissions officer from [facility], and stated that they cannot accept the pt to their facility.
[2019-05-18] MEDS: INSULIN REGULAR, HUMAN 100 UNIT/ML 3 ML VIAL SQ PRN (13:27)
--- NOTE | 2019-05-18 13:33 | NUR ---
SNF Contact: Veronica [phone]) from [facility] contacted the SW and stated that the pt was not accepted to the facility at this time.
--- NOTE | 2019-05-18 15:31 | NUR ---
INDIVIDUAL NOTE: In lieu of group therapy due to COVID 19, SW met with the pt individually in the activities room. Pt appeared agitated and was mumbling loud and using hand gestures. Pt is deaf and mute and mute. Pt was focused on the inventory control coordinator and SW was unable to get her attention.
--- NOTE | 2019-05-18 15:37 | NUR ---
SNF Referral: RUBY faxed a referral to the following nursing facilities: [facility] with attn to Samantha to the fax number: [phone] [facility] with attn to Admissions to the fax number: [phone]
--- NOTE | 2019-05-18 16:10 | NUR ---
Family Contact: SW called the pts brother, Moi ([phone]), and left a voicemail that stated that the SW would like to discuss the pts treatment plan and discharge plan.
[2019-05-18 16:33] VITALS: BP 105/55
[2019-05-18 20:41] VITALS: BP 120/44
--- NOTE | 2019-05-18 22:00 | NUR ---
Patient alert calm blood sugar 59 asymptomatic. juice given and container 180 ml taken 100%. She commented she was hungry and she also ate 75% of a sandwitch. ambulated to the bathroom and washed her hands and back to be. REFUSED adamantly to have her blood sugar rechecked, she was waving her arms and yelling "GO AWAY" "NO" . Reassured her I was okay with her decision. She refused her Manuel Garcia and zyprexia stated they made her "she indicated by pointing her index finger in the air ans going in circles. She did take the blood pressure medication.
--- NOTE | 2019-05-19 05:44 | NUR ---
ENDING NOTES: SHE IS COOPERATIVE AND FRIENDLY. SPEECH GARBLED, WITH UNDERSTNDING SHE IS DEAF AND MUTE. SHE MAKES HER MEANS KNOWN. HER BLOOD SUGAR AT HS WAS 59 , SHE WAS ASYMPTOMATIC, BUT WAS COOPERATIVE TOOK JUICE. LATER SHE SAID SHE WAS HUNGRY, SANDWITH/ JUICE/PUDDING SERVED AND CONSUMED 75%. SHE AMBULATES TO THE BATHROOM STEADY ON HER LEGS. WHEN I WANTED TO RETAKE HER BLOOD SUGAR PRIOR GOING TO SLEEP, SHE ADAMANTLY REFUSED,GETTING INTO BED AND COVERING HERSELF UP AND LOUDLY YELLING "GET OUT' GO AWAY 'NO SHE REFUSED HER LETHIUM AND ZYPREXIA AT HS, SHE INDICATED THEY MAKE HER DIZZY LOOPY IN THE HEAD. AMBULATED TO THE BATHROOM X1 DURING THE NIGHT SKIN WAS WARM AND DRY NO S/S OF HYPO OR HYPERGLYCEMIA.
--- NOTE | 2019-05-19 08:30 | NUR ---
RECEIVED PT.ALERT AND ORIENTED X 2-3.DISHEVELED.PLEASANT WHEN NOTE WRITTEN TO HER.
[2019-05-19] MEDS: DOCUSATE SODIUM 100 MG CAPSULE PO SCH ×2 (08:58→09:07)
[2019-05-19] MEDS: REPAGLINIDE 0.5 MG TABLET PO SCH ×4 (08:58→17:35)
[2019-05-19] MEDS: LINAGLIPTIN 5 MG TABLET PO SCH (09:00)
[2019-05-19] MEDS: METOPROLOL TARTRATE 25 MG TABLET PO SCH (09:00)
[2019-05-19] MEDS ORDERED: OLANZAPINE 5 MG TABLET PO SCH (09:00)
[2019-05-19] MEDS ORDERED: LITHIUM CARBONATE (300 MG CAP) 300 MG CAPSULE PO SCH (09:00)
--- NOTE | 2019-05-19 09:00 | NUR ---
DR. CAMARGO IN AND DISCHARGE ORDER WRITTEN.MADE AWARE REFUSED LITHIUM AND ZYPREXA LAST NOC.ATTEMPTING TO JUGGLE TIMES ON AM MEDS.
[2019-05-19] MEDS: BLOOD SUGAR DIAGNOSTIC 1 EACH STRIP IN SCH ×3 (09:07→17:36)
[2019-05-19] MEDS: METFORMIN 500 MG TABLET PO SCH ×2 (09:08→17:00)
[2019-05-19] MEDS: PANTOPRAZOLE 40 MG TABLET.DR PO SCH (09:08)
[2019-05-19] MEDS: ASPIRIN 81 MG TAB.CHEW PO SCH (09:08)
[2019-05-19 09:39] VITALS: BP 114/67
--- NOTE | 2019-05-19 10:06 | NUR ---
OUT AT DESK FUSSING ABOUT WANTING TO LEAVE.
--- NOTE | 2019-05-19 11:27 | NUR ---
SNF Referral: SW faxed a referral to the following nursing facilities: [facility] with attn to Franchesca to the fax number: [phone] [facility] with attn to Abdifatah to the fax number: [phone] [facility] with attn to Trish to the fax number: [phone].
--- NOTE | 2019-05-19 11:29 | NUR ---
MD Referral: Per RUBY Botello faxed a referral to [facility] with attn to Max to the fax number: [phone].
--- NOTE | 2019-05-19 11:30 | NUR ---
MD Referral: Per RUBY Morrissey faxed a referral to his placement principal statistical programmer Brenda to the fax number: [phone].
--- NOTE | 2019-05-19 11:30 | NUR ---
SNF Contact: RUBY faxed additional notes to [facility] with attn to Trish to the fax number: [phone].
[2019-05-19] MEDS: INSULIN REGULAR, HUMAN 100 UNIT/ML 3 ML VIAL SQ PRN (12:31)
--- NOTE | 2019-05-19 13:38 | NUR ---
Family Contact: SW called the pts brother, Moi ([phone]), and informed him of the pts discharge plan to be discharged to a SNF today and provided him with the address and the phone number to the facility.
--- NOTE | 2019-05-19 13:57 | NUR ---
Discharge Note: Pt was discharged to [facility] located at [address] [place] [address]; . Pt was transported via [facility] (Trip #[id number]) at 6pm. Pt was placed in Rm 22. Pts brother, Moi ([phone]), was made aware of the placement. Upon discharge, the pt appeared to be in a euthymic mood and presented with a calm affect. Pt appeared to be disorganized and confused. Pt appeared to be well groomed and ambulatory. Pt denied both suicidal and homicidal ideation as well as auditory and visual hallucinations. Pt was provided with smoking cessation referrals. Pt will be under the care of psychiatrist, Dr. Castañeda, located at [address] [facility] [address] [address]; and mathematical engineering technician, Dr. Miles, located at [address] [place] [address]; .
--- NOTE | 2019-05-19 15:39 | NUR ---
REFUSING SKIN CHECK FOR DISCHARGE PHOTOS.
[2019-05-19 16:02] VITALS: BP 126/69
--- NOTE | 2019-05-19 20:30 | NUR ---
GPS-RN NOTE: DISCHARGE PATIENT WAS DISCHARGED TO [facility]. PT. WAS TRANSPORTED VIA [facility] . UPON DISCHARGE, PT APPEARED CALM, CONFUSED, WELL GROOMED, AMBULATORY STEADY. PATIENT DENIES SI/HI OR HALLUCINATIONS AT THIS TIME. NO C/O PAIN OR DISCOMFORT NOTED. V/S BP 125/58, P62, R, 19. T98.0 O2 SATURATION @96% ROOM AIR. PATIENT REMAINS STABLE. DISCHARGE PAPER WORKS GIVEN AND DISCUSSED.
== END 2019-05-19 20:36 | DRG 885 ==
LOC: ER 22:16 → GPS 05-05 02:08
PROVIDERS: ADMIT Psychiatry & Neurology Psychosomatic Medicine; ATTEND Internal Medicine
DX: F25.0 Schizoaffective disorder, bipolar type (principal); N39.0 Urinary tract infection, site not specified; R45.851 Suicidal ideations; F41.9 Anxiety disorder, unspecified; E11.9 Type 2 diabetes mellitus without complications; I10 Essential (primary) hypertension; H91.3 Deaf nonspeaking, not elsewhere classified; R47.89 Other speech disturbances; J44.9 Chronic obstructive pulmonary disease, unspecified; Z88.2 Allergy status to sulfonamides; Z79.84 Long term (current) use of oral hypoglycemic drugs; Z79.82 Long term (current) use of aspirin; Z79.899 Other long term (current) drug therapy; Z79.4 Long term (current) use of insulin; Z87.440 Personal history of urinary (tract) infections; Z87.891 Personal history of nicotine dependence; Z91.19 Patient's noncompliance with other medical treatment and regimen; D64.9 Anemia, unspecified; G31.84 Mild cognitive impairment of uncertain or unknown etiology; E78.00 Pure hypercholesterolemia, unspecified; F29 Unspecified psychosis not due to a substance or known physiological condition; R05 Cough
CPT/HCPCS: 36415; 80048-TC; 80053-TC; 80061-TC; 80076-TC; 80305; 81000-TC; 82140-TC; 82565-TC; 82962-TC; 84439-TC; 84443-TC; 84481; 85025-TC; 87081-TC; G0480; J1815; J7030